=== PATIENT | male | born 1975 | race Caucasian/White ===

== ENCOUNTER 2016-05-28 17:21 | Emergency (ER) | payer BC, OTHER ==
[~2016-05-28] VITALS: Wt 78.0 kg
[~2016-05-28 17:21] MED LIST: MULT1TAB6 PO; [UNRECOGNIZED DRUG - OTHER]
[2016-05-28] MEDS ORDERED: LIDOCAINE 1% (MDV) 20 ML INJ SC ONE (18:30)
--- NOTE | 2016-05-28 19:03 | RADRPT ---
PROCEDURE: XR Chest. CLINICAL INDICATION: Chest pain.. TECHNIQUE: Single frontal chest x-ray. COMPARISON: None. FINDINGS: The lungs are clear of acute infiltrates, edema, effusions, or masses.. The cardiomediastinal silho uette is unremarkable. The osseous structures are intact. IMPRESSION: No acute cardiopulmonary disease. RPTAT: HJPL .Juwan Da Silva MD, MD Date Time Electronically viewed and signed by .Juwan Da Silva MD, MD on 05/28/2016 19:03 .L/
[2016-05-28 19:04] LABS: HEMATOCRIT 45.3 % (42.0-52.0); HEMOGLOBIN 15.2 g/dl (14.0-18.0); MEAN CORPUSCULAR HEMOGLOBIN 27.1 pg (29.0-33.0); MEAN CORPUSCULAR HGB CONC 33.6 g/dl (32.0-37.0); MEAN CORPUSCULAR VOLUME 80.9 fl (82.0-101.0); MEAN PLATELET VOLUME 10.9 fl (7.4-10.4); PLATELET COUNT 193 10^3/UL (140-440); RED CELL DISTRIBUTION WIDTH 13.5 % (11.5-14.5); UNCORRECTED WBC 22.6 10^3/ul (4.8-10.8); WHITE BLOOD COUNT 22.6 10^3/ul (4.8-10.8)
[2016-05-28 19:05] LABS: CONDITION 1; LH ANALYZER COMMENTS 1; SUSPECT 1
[2016-05-28 19:14] LABS: CHLORIDE 102 mmol/L (97-110); POTASSIUM 3.5 mmol/L (3.5-5.1); SODIUM 138 mmol/L (135-144)
[2016-05-28 19:16] LABS: INR 1.03; PROTIME 13.5 Sec (12.2-14.2); PT RATIO 1.1
[2016-05-28 19:17] LABS: ANION GAP 17 (8-16); BLOOD UREA NITROGEN 12 mg/dl (7-20); CARBON DIOXIDE 23 mmol/L (21-31); CREATININE 1.27 mg/dl (0.61-1.24); GLUCOSE 111 mg/dl (70-220)
[2016-05-28 19:18] LABS: CALCIUM 9.3 mg/dl (8.4-10.2)
--- NOTE | 2016-05-28 19:22 | ERD ---
ER Documentation Chief Complaint Date/Time DATE: 05/28/16 TIME: 19:19 Chief Complaint FLU SYMPTOMS BODY ACHE AND FEVER HPI This is a 41-year-old male presents emergency department for tactile fevers and chills, generalized body aches, decreased appetite, chest pain and backache 2 days. Patient also reports abscess to left buttock. Patient has not taking any medications at home for this. States he is having chest pain. Denies shortness of breath, difficulty breathing, chest pressure or palpitations. No nausea, vomiting or diarrhea. No wheezing. Tolerating p.o. fluids. ROS All systems reviewed and are negative except as per history of present illness. Medications Home Meds Active Scripts Cephalexin* (Keflex*) 500 Mg Capsule, 500 MG PO QID for 5 Days, CAP Prov:ARON ARIAS NP 05/28/16 Sulfamethoxazole-Trimethoprim* (Bactrim* DS) 800-160 Mg Tab, 1 TAB PO BID for 5 Days, TAB Prov:ARON ARIAS NP 05/28/16 Reported Medications [Psyllium Prn] No Conflict Check 12/14/14 Folic Acid/Mv,Fe,Other Min (Centrum Complete Multivit Tab) 1 Each Tablet, 1 EACH PO 08/03/14 Allergies Allergies: Coded Allergies: No Known Allergies (Verified Allergy, Unknown, 12/14/14) PMhx/Soc History of Surgery: Yes (HEMORROIDECTOMY JULY 2014) Anesthesia Reaction: No Hx Neurological Disorder: No Hx Respiratory Disorders: No Hx Cardiac Disorders: No Hx Psychiatric Problems: No Hx Miscellaneous Medical Probl: Yes Hx Alcohol Use: No Hx Substance Use: No Hx Tobacco Use: Yes Smoking Status: Current every day smoker Physical Exam Vitals Vital Signs Date Time Temp Pulse Resp B/P Pulse Ox O2 Delivery O2 Flow Rate FiO2 05/28/16 20:45 98.2 82 18 134/82 99 Room Air 05/28/16 17:22 98.0 122 18 143/92 99 Physical Exam Const: Alert, [id number] Head: Atraumatic Eyes: Normal Conjunctiva ENT: Normal External Ears, Nose and Mouth. TMs normal bilaterally. No erythema or exudate posterior pharynx. Neck: Full range of motion..~ No meningismus. No lymphadenopathy Resp: Clear to auscultation bilaterally. No wheezing, rhonchi or crackles. Cardio: Regular rate and rhythm, no murmurs Abd: Soft, non tender, non distended. Normal bowel sounds Skin: 2 cm abscess to left buttock. Surrounding erythema and warmth. Area is fluctuant. Back: No midline or flank tenderness Ext: No cyanosis, or edema Neur: Awake and alert Psych: Normal Mood and Affect Result Diagram: 05/28/16182105/28/16 182 Results 24 hrs Laboratory Tests Test 05/28/16 18:22 Activated Partial Thromboplast Time 28.2Sec Anion Gap 17 Band Neutrophils % 4.0% Blood Morphology Comment Blood Urea Nitrogen 12mg/dl Calcium Level 9.3mg/dl Carbon Dioxide Level 23mmol/L Chloride Level 102mmol/L Creatinine 1.27mg/dl Glucose Level 111mg/dl Hematocrit 45.3% Hemoglobin 15.2g/dl INR International Normalized Ratio 1.03 Lymphocytes # 3.410^3/ul Lymphocytes % 15.0% Mean Corpuscular Hemoglobin 27.1pg Mean Corpuscular Hemoglobin Concent 33.6g/dl Mean Corpuscular Volume 80.9fl Mean Platelet Volume 10.9fl Monocytes # 1.810^3/ul Monocytes % 8.0% Neutrophils # 16.510^3/ul Neutrophils % 73.0% Platelet Count 88855^3/UL Potassium Level 3.5mmol/L Prothrombin Time 13.5Sec Prothrombin Time Ratio 1.1 Red Blood Count 5.6010^6/ul Red Cell Distribution Width 13.5% Sodium Level 138mmol/L Troponin I < 0.012ng/ml White Blood Count 22.610^3/ul Current Medications Medications (Trade) Dose Ordered Sig/Ronal Route PRN Reason Start Time Stop Time Status Last Admin Dose Admin Lidocaine (Xylocaine 1% (Mdv) 20 ml) 20 ml ONCE ONCE SC 05/28/16 18:30 05/28/16 18:31 DC Procedures/MDM ED COURSE: The patient was stable throughout ED course. I kept the patient and/or family informed of laboratory and diagnostic imaging results throughout the ED course. Laboratory CBC White blood cell 22 otherwise negative BMP creatinine 1.27 PT 13.5 PTT 28.2 INR 1.03 Troponin less than 0.012 Imaging Chest x-ray Patient: RASHAD KIDD : 1975 Age: 41 Sex: M MR #: [id number] [facility] #: [id number] DOS: 05/28/16 1806 Ordering MD: ARON ARIAS NP Location: [facility] Room/Bed: PROCEDURE: XR Chest. CLINICAL INDICATION: Chest pain.. TECHNIQUE: Single frontal chest x-ray. COMPARISON: None. FINDINGS: The lungs are clear of acute infiltrates, edema, effusions, or masses.. The cardiomediastinal silhouette is unremarkable. The osseous structures are intact. IMPRESSION: No acute cardiopulmonary disease. EKG: As interpreted by Dr. Castellanos Rate/Rhythm: Sinus tachycardia with heart rate 104 bpm QRS, ST, T-waves: No changes consistent w/ acute ischemia Impression: No evidence of ischemia or arrhythmia Abscess Incision and Drainage with irrigation by me: Location: Left buttock Anesthesia: Local 1% Lidocaine Technique: Irrigated. Disrupted loculations w/ instrumentation Packin inches packing Complications: Neurovascularly intact post procedure 48 hour wound check. Scar minimization instructions given. MDM: 41-year-old male presents to the emergency department for tactile fevers, generalized body aches, decreased appetite and abscess. Labs were drawn as noted above. EKG sinus tachycardia. Chest x-ray reviewed by radiologist as no acute cardiopulmonary disease. Patient states he is feeling better since he first arrived. Verbal consent was obtained and incision was performed while in the ED. Patient 's skin symptoms have stabilized while they have been evaluated in the department and are appropriate for outpatient care and work up. Exam and w/u not consistent w/ sepsis, deep space infection, or foreign body. Patient instructed to return to ED in 2 days for wound check. Discussed patient 's lab results with Dr. Castellanos especially white blood cell count 22, and we feel that patient is appropriate for outpatient management with Bactrim and Keflex. Instructed patient to return sooner for any new or worsening symptoms. Return to ED for any high fever, chest pain, difficulty breathing, shortness breath, wheezing, vomiting, diarrhea, abdominal pain or any new or worsening symptoms. Patient verbalizes understanding. All questions answered at discharge. Departure Diagnosis: Primary Impression: Abscess Additional Impression: URI (upper respiratory infection) URI type: unspecified viral URI Qualified Code: J06.9 - Viral upper respiratory tract infection Condition: Stable ARON ARIAS NP May 28, 2016 19:22
[2016-05-28 19:26] LABS: PARTIAL THROMBOPLASTIN TIME 28.2 Sec (25.0-35.0)
[2016-05-28 19:30] LABS: TROPONIN-I < 0.012 ng/ml (0.00-0.12)
[2016-05-28 19:44] LABS: LYMPHOCYTES # 3.4 10^3/ul (0.8-2.9); MONOCYTE # 1.8 10^3/ul (0.3-0.9); NEUTROPHIL # 16.5 10^3/ul (1.6-7.5)
[2016-05-28] MEDS ORDERED: CEPH-443 PO (20:01)
[2016-05-28] MEDS ORDERED: BACTDS PO (20:01)
[2016-05-28 20:45] VITALS: BP 134/82; PULSE 82; RESP 18; TEMP 98.2
== END 2016-05-28 20:50 | disposition home or self-care (01) ==
LOC: FTE 17:21
DX: L02.31 Cutaneous abscess of buttock (principal); J06.9 Acute upper respiratory infection, unspecified; F17.210 Nicotine dependence, cigarettes, uncomplicated; R07.9 Chest pain, unspecified
CPT/HCPCS: 10061; 71010; 80048; 84484; 85025; 85610; 85730; 93005; 99285; Z7610

== ENCOUNTER 2016-05-30 11:09 | Emergency (ER) | END 2016-05-30 13:50 | disposition home or self-care (01) | DX: Z48.01 Encounter for change or removal of surgical wound dressing (principal); F17.210 Nicotine dependence, cigarettes, uncomplicated ==

== ENCOUNTER 2016-07-04 19:35 | Inpatient (IN) | payer BC ==
[~2016-07-04] VITALS: Ht 177.8 cm; Wt 96.3 kg
[~2016-07-04 19:35] MED LIST changes: +BACTDS PO; +CEPH-443 PO
[2016-07-04] MEDS ORDERED: SOD CHLORIDE 0.9% IV STA (21:07)
[2016-07-04 21:28] LABS: ADD SCAN DIFF NO
[2016-07-04] MEDS ORDERED: ACETAMINOPHEN 325 MG TAB PO ONE (21:30)
[2016-07-04] MEDS ORDERED: IBUPROFEN 800 MG TAB PO ONE (21:30)
[2016-07-04 21:37] LABS: BASOPHIL # 0.1 10^3/ul (0.0-0.1); BASOPHILS % 0.4 % (0.0-2.0); EOSINOPHILS % 0.1 % (0.0-7.0); HEMOGLOBIN 14.9 g/dl (14.0-18.0); LYMPHOCYTES # 3.3 10^3/ul (0.8-2.9); LYMPHOCYTES % 19.2 % (15.0-51.0); MEAN CORPUSCULAR HEMOGLOBIN 27.1 pg (29.0-33.0); MEAN CORPUSCULAR HGB CONC 33.1 g/dl (32.0-37.0); MEAN CORPUSCULAR VOLUME 81.8 fl (82.0-101.0); MEAN PLATELET VOLUME 11.5 fl (7.4-10.4); MONOCYTE # 1.5 10^3/ul (0.3-0.9); MONOCYTES % 8.6 % (0.0-11.0); NEUTROPHIL # 12.1 10^3/ul (1.6-7.5); NEUTROPHILS % 71.4 % (39.0-77.0); PLATELET COUNT 228 10^3/UL (140-415); RED CELL DISTRIBUTION WIDTH 13.4 % (11.5-14.5); WHITE BLOOD COUNT 16.9 10^3/ul (4.8-10.8)
[2016-07-04 21:47] LABS: ALBUMIN 4.3 g/dl (3.3-4.9)
[2016-07-04 21:50] LABS: BILIRUBIN,INDIRECT 0.9 mg/dl (0-1.1); BILIRUBIN,TOTAL 0.9 mg/dl (0.2-1.3); CREATININE 1.18 mg/dl (0.61-1.24); TOTAL PROTEIN 8.6 g/dl (6.1-8.1)
[2016-07-04 21:51] LABS: CALCIUM 9.3 mg/dl (8.4-10.2)
[2016-07-04] MEDS ORDERED: IOHEXOL 300MG/ML 150 ML BTL ONE (22:41)
[2016-07-04] MEDS ORDERED: SOD CHLORIDE 0.9% 100 ML ONE (22:41)
--- NOTE | 2016-07-04 23:18 | RADRPT ---
PROCEDURE: CT abdomen and pelvis with contrast. CLINICAL INDICATION: Left pelvic pain consistent with abscess extending into the rectum TECHNIQUE: CT scan of the abdomen and pelvis with contrast was performed. Coronal and sagittal im ages were also reformatted. 90 cc Omnipaque-300 intravenous contrast was administered without compl ication. Total exam CTDIvol = 15.41 mGy and DLP = 931.12 mGy-cm. COMPARISON: None available. FINDINGS: Visualized lower thorax: The lung bases are clear. There is no evidence for pleural effusion. Liver, gallbladder, pancreas and spleen: Low attenuation of the liver is compatible with fatty depo sition with normal contour and size. There is no evidence for liver mass or ductal dilatation. The gallbladder is unremarkable. No common bile duct dilatation is evident. The pancreas is normal. The spleen is normal, not enlarged. Adrenal glands and genitourinary system: The adrenal glands are normal bilaterally. The kidneys ar e normal in size, contour and attenuation with no evidence for masses, calculi or hydronephrosis. Sy mmetric enhancement of the kidneys is present without pyelonephritis The ureters are unremarkable. The urinary bladder shows no abnormality. The prostate gland is normal in size. The scrotum shows no abnormality. Gastrointestinal system: The stomach, small bowel and large intestine are normal in caliber. There is no evidence of obstruction, ileus or inflammation. The appendix and surrounding fat are normal. A normal amount of fecal debris is present within the colon and there is no wall thickening to sugg est colitis. Peritoneum, retroperitoneum, vessels and lymph nodes: The abdominal aorta is normal in caliber. Th ere is mild right common iliac artery atherosclerotic calcification. Inferior vena cava is normal i n caliber. There is no evidence for adenopathy. The peritoneal cavity is normal with no evidence f or ascites. Osseous structures and musculoskeletal system: There is no evidence for acute osseous abnormality o r muscular pathology. Corresponding to the provided history in the left ischiorectal fossa fat the is an ovoid centrally hypodense and peripherally enhancing collection with a some punctate central f oci of gas, the finding consistent with a perianal abscess estimated at 4.6 x 4.4 x 2.9 cm in AP, cr anial caudal and transverse dimensions respectively (series 3 image 180). The abscess extends to th e skin surface along the left medial gluteal crease with overlying skin thickening and diffuse infla mmatory stranding of the left medial gluteal fat consistent with cellulitis. There is no evidence o f extension above the levator ani muscles into the perirectal region. RPTAT:HJJR IMPRESSION: 1. Acute inflammatory collection/abscess within the left ischiorectal fossa adjacent to the anus me asures approximately 4.6 x 4.4 x 2.9 cm with surrounding cellulitis in the left gluteal fat and like ly drainage to the skin surface but no extension cephalad to the levator ani muscles into the pelvis and perirectal regions. 2. Hepatic steatosis. 3. Mild atherosclerotic calcification of the right common iliac artery. Physician Cecille Date Time Electronically viewed and signed by Paxton Mullins Physician on 07/04/2016 23:18 JR/
[2016-07-05] VITALS (17 sets, daily range): BP systolic 103–142; BP diastolic 55–81; PULSE 77–125; RESP 16–41; TEMP 99.7; Ht 177.8 cm; Wt 96.3 kg
--- NOTE | 2016-07-05 02:02 | ERA ---
ER Documentation Chief Complaint Date/Time DATE: 07/05/16 TIME: 01:54 Chief Complaint LEFT BUTTOCK WITH FEVER AND PAIN HPI 41 year old with a past medical history of left buttocks abscess presents to the ED complaining of of an abscess noted on the left side of his buttocks that reoccurred 2 days ago. States that he started to feel body aches, a slight frontal headache and feels like the abscess pain is radiating down his left leg. States he started to have chills and a fever earlier today. Denies taking any medications. Denies any cough, rhinorrhea, chest pain, shortness of breath, abdominal pain, nausea, vomiting, diarrhea, blood in stools, melena. Denies any flank pain, dysuria, urgency, frequency, hematuria. States that he has had prior I&D of his abscess, hemorrhoidectomy x 2. ROS All systems reviewed and are negative except as per history of present illness. Medications Home Meds Active Scripts Cephalexin* (Keflex*) 500 Mg Capsule, 500 MG PO QID for 5 Days, CAP Prov:ARON ARIAS NP 05/28/16 Sulfamethoxazole-Trimethoprim* (Bactrim* DS) 800-160 Mg Tab, 1 TAB PO BID for 5 Days, TAB Prov:ARON ARIAS NP 05/28/16 Reported Medications [Psyllium Prn] No Conflict Check 12/14/14 Folic Acid/Mv,Fe,Other Min (Centrum Complete Multivit Tab) 1 Each Tablet, 1 EACH PO 08/03/14 Allergies Allergies: Coded Allergies: No Known Allergies (Verified Allergy, Unknown, 05/30/16) PMhx/Soc History of Surgery: Yes (HEMORROIDECTOMY JULY 2014) Anesthesia Reaction: No Hx Neurological Disorder: No Hx Respiratory Disorders: No Hx Cardiac Disorders: No Hx Psychiatric Problems: No Hx Miscellaneous Medical Probl: Yes Hx Alcohol Use: Yes (SOCIALLY) Hx Substance Use: No Hx Tobacco Use: Yes Smoking Status: Unknown if ever smoked Physical Exam Vitals Vital Signs Date Time Temp Pulse Resp B/P Pulse Ox O2 Delivery O2 Flow Rate FiO2 07/05/16 02:20 99.8 79 18 110/77 97 Room Air 07/04/16 19:50 101.0 129 18 141/97 98 Physical Exam Const: [id number], well-nourished. In no acute distress. Head: Atraumatic, normocephalic Eyes: Normal Conjunctiva without injection. No purulent discharge. ENT: Normal external ear, nose. Moist oropharynx without tonsillar exudates. Non -erythematous pharynx. Uvula midline. No drooling. No trismus. Neck: No cervical midline tenderness. Full range of motion. No meningismus. No cervical lymphadenopathy. No JVD. Resp: Clear to auscultation bilaterally. No wheezing, rhonchi, rales, or crackles. No accessory muscle use. No retractions. Cardio: Regular rate and rhythm. No murmurs, rubs or gallops. Abd: Soft, nontender, non distended. Normal bowel sounds. No palpable masses. No rebound tenderness. No guarding. Negative McBurney's point. Negative psoas sign. Negative obturator sign. 3 cm fluctuant abscess noted of left buttocks with surrounding erythema and induration noted of left buttocks with erythema tracking to the anus. Slight tenderness to palpation of the anal region. Skin: No petechiae or rashes Back: No midline tenderness. No CVA tenderness. Ext: No cyanosis, or edema. Neur: Awake and alert. Normal gait. Normal coordination. Psych: Normal Mood and Affect Result Diagram: 07/08/1644907/08/160 Results 24 hrs Laboratory Tests Test 07/04/16 21:20 Alanine Aminotransferase (ALT/SGPT) 41IU/L Albumin 4.3g/dl Albumin/Globulin Ratio 1.00 Alkaline Phosphatase 75IU/L Anion Gap 18 Aspartate Amino Transf (AST/SGOT) 24IU/L Basophils # 0.110^3/ul Basophils % 0.4% Blood Urea Nitrogen 11mg/dl Calcium Level 9.3mg/dl Carbon Dioxide Level 28mmol/L Chloride Level 99mmol/L Creatinine 1.18mg/dl Direct Bilirubin 0.00mg/dl Eosinophils # 0.010^3/ul Eosinophils % 0.1% Globulin 4.30g/dl Glucose Level 115mg/dl Hematocrit 45.0% Hemoglobin 14.9g/dl Indirect Bilirubin 0.9mg/dl Lipase 50U/L Lymphocytes # 3.310^3/ul Lymphocytes % 19.2% Mean Corpuscular Hemoglobin 27.1pg Mean Corpuscular Hemoglobin Concent 33.1g/dl Mean Corpuscular Volume 81.8fl Mean Platelet Volume 11.5fl Monocytes # 1.510^3/ul Monocytes % 8.6% Neutrophils # 12.110^3/ul Neutrophils % 71.4% Nucleated Red Blood Cells # 0.010^3/ul Nucleated Red Blood Cells % 0.0/100WBC Platelet Count 13086^3/UL Potassium Level 4.0mmol/L Red Blood Count 5.5010^6/ul Red Cell Distribution Width 13.4% Sodium Level 141mmol/L Total Bilirubin 0.9mg/dl Total Protein 8.6g/dl White Blood Count 16.910^3/ul Current Medications Medications (Trade) Dose Ordered Sig/Ronal Route PRN Reason Start Time Stop Time Status Last Admin Dose Admin Sodium Chloride (NS) 2,980 ml @ 2,980 mls/hr BOLUS X1 STAT IV 07/04/16 21:07 07/05/16 05:11 DC 07/04/16 21:15 Ibuprofen (Motrin) 800 mg ONCE ONCE PO 07/04/16 21:30 07/04/16 21:31 DC 07/04/16 21:14 Acetaminophen (Tylenol Tab) 650 mg ONCE ONCE PO 07/04/16 21:30 07/04/16 21:31 DC 07/04/16 21:14 IV Flush 10 ml 10 ml STK-MED ONCE .ROUTE 07/04/16 22:41 07/04/16 22:42 DC 07/04/16 22:58 Sodium Chloride (NS) 100 ml @ ud STK-MED ONCE .ROUTE 07/04/16 22:41 07/04/16 22:42 DC 07/04/16 22:58 Iohexol (Omnipaque 300mg/ ml) 150 ml STK-MED ONCE .ROUTE 07/04/16 22:41 07/04/16 22:42 DC 07/04/16 22:58 Procedures/MDM This is a 41-year-old male with a past medical history of left buttocks abscess presents the ED complaining of fever, body aches, recurrent left buttocks abscess that occurred 2 days ago. Patient is febrile at 101.0 and tachycardic at 129. Patient was further worked up with CBC, CMP, CT of the abdomen and pelvis with contrast. Patient's pain and symptoms have improved after treatment with ibuprofen and Tylenol which also downtrend patient's temperature. PROCEDURE: CT abdomen and pelvis with contrast. CLINICAL INDICATION: Left pelvic pain consistent with abscess extending into the rectum TECHNIQUE: CT scan of the abdomen and pelvis with contrast was performed. Coronal and sagittal images were also reformatted. 90 cc Omnipaque-300 intravenous contrast was administered without complication. Total exam CTDIvol = 15.41 mGy and DLP = 931.12 mGy-cm. COMPARISON: None available. FINDINGS: Visualized lower thorax: The lung bases are clear. There is no evidence for pleural effusion. Liver, gallbladder, pancreas and spleen: Low attenuation of the liver is compatible with fatty deposition with normal contour and size. There is no evidence for liver mass or ductal dilatation. The gallbladder is unremarkable. No common bile duct dilatation is evident. The pancreas is normal. The spleen is normal, not enlarged. Adrenal glands and genitourinary system: The adrenal glands are normal bilaterally. The kidneys are normal in size, contour and attenuation with no evidence for masses, calculi or hydronephrosis. Symmetric enhancement of the kidneys is present without pyelonephritis The ureters are unremarkable. The urinary bladder shows no abnormality. The prostate gland is normal in size. The scrotum shows no abnormality. Gastrointestinal system: The stomach, small bowel and large intestine are normal in caliber. There is no evidence of obstruction, ileus or inflammation. The appendix and surrounding fat are normal. A normal amount of fecal debris is present within the colon and there is no wall thickening to suggest colitis. Peritoneum, retroperitoneum, vessels and lymph nodes: The abdominal aorta is normal in caliber. There is mild right common iliac artery atherosclerotic calcification. Inferior vena cava is normal in caliber. There is no evidence for adenopathy. The peritoneal cavity is normal with no evidence for ascites. Osseous structures and musculoskeletal system: There is no evidence for acute osseous abnormality or muscular pathology. Corresponding to the provided history in the left ischiorectal fossa fat the is an ovoid centrally hypodense and peripherally enhancing collection with a some punctate central foci of gas, the finding consistent with a perianal abscess estimated at 4.6 x 4.4 x 2.9 cm in AP, cranial caudal and transverse dimensions respectively (series 3 image 180 ). The abscess extends to the skin surface along the left medial gluteal crease with overlying skin thickening and diffuse inflammatory stranding of the left medial gluteal fat consistent with cellulitis. There is no evidence of extension above the levator ani muscles into the perirectal region. RPTAT:HJJR IMPRESSION: 1. Acute inflammatory collection/abscess within the left ischiorectal fossa adjacent to the anus measures approximately 4.6 x 4.4 x 2.9 cm with surrounding cellulitis in the left gluteal fat and likely drainage to the skin surface but no extension cephalad to the levator ani muscles into the pelvis and perirectal regions. 2. Hepatic steatosis. 3. Mild atherosclerotic calcification of the right common iliac artery. CBC: Leukocytosis of 16.9 likely secondary to perirectal abscess noted. No e/o anemia. CMP: No e/o severe acidosis, alkalosis, renal failure, diabetic ketoacidosis, liver disease Patient has a left acute inflammatory abscess that could likely be tracking to deeper space infection likely a perirectal abscess. This case was discussed with my supervising physician, Dr. Parks who agreed to admit patient at this time for a surgical consultation. Patient will now be transferred to the ED 1 for further evaluation and treatment by Dr. Parks. Departure Diagnosis: Primary Impression: Left buttock abscess Condition: Stable ELBA KC PA-C Jul 05, 2016 02:02 ELBA KC PA-C Jul 05, 2016 02:02
[2016-07-05] MEDS ORDERED: morphine 2 MG INJ IV PRN (05:00)
[2016-07-05] MEDS ORDERED: ONDANSETRON 4 MG INJ IV PRN ×3 (05:00→20:00)
[2016-07-05] MEDS ORDERED: NACL 0.9% 3 ML SYG IV SCH (05:00)
[2016-07-05] MEDS ORDERED: PROPOFOL 200 MG INJ ONE (07:00)
[2016-07-05] MEDS ORDERED: HYDROCODONE/APAP (5/325) TAB PO PRN (09:30)
[2016-07-05] MEDS ORDERED: ACETAMINOPHEN 325 MG TAB PO PRN (09:30)
[2016-07-05] MEDS ORDERED: VANCOMYCIN IV PER PHARMACY XX SCH (09:30)
[2016-07-05] MEDS ORDERED: VANCOMYCIN 2 GM in SOD CHLORIDE 0.9% 500 ML IVPB SCH (12:00)
[2016-07-05 12:24] LABS: INR 1.08; PT RATIO 1.1
--- NOTE | 2016-07-05 13:04 | CONS ---
Date/Time of Note Date/Time of Note DATE: 07/05/16 TIME: 13:00 Assessment/Plan Assessment/Plan Chief Complaint/Hosp Course 41-year-old male with perirectal abscess * Will need operative incision and drainage * Discussed with patient in detail including all risks and benefits of the procedure. He understands and agrees to proceed. * Will schedule for surgery Problems: Consultation Date/Type/Reason Admit Date/Time Jul 05, 2016 at 03:32 Date of Consultation: Jul 05, 2016 Type of Consultation: GENERAL SURGERY Reason for Consultation Perirectal abscess Hx of Present Illness Patient is a 41-year-old male with a history of prior hemorrhoidectomy 2, anal dilation, proximal mucosal flap, prior I&D of perirectal abscess who presented to the ER complaining of maki-rectal pain and associated fever. CT scan was done which showed presence of perirectal abscess. He has since been admitted and started on broad-spectrum intravenous antibiotics. He continues to be febrile. A 14 point review of systems was conducted and was negative except for that which is mentioned in history of present illness Past Medical History As in history of present illness Past Surgical History As in history of present illness Social History Smoking Status: Current every day smoker Exam/Review of Systems Vital Signs Vitals Vital Signs Date Time Temp Pulse Resp B/P Pulse Ox O2 Delivery O2 Flow Rate FiO2 07/05/16 12:15 99.7 07/05/16 11:00 125 18 106/60 95 Room Air Intake and Output 07/04/16 07/04/16 07/05/16 15:00 23:00 07:00 Intake Total 2980 ml Balance 2980 ml Exam GENERAL: Awake, alert, oriented 3. No acute distress. SKIN: No jaundice. HEENT: PERRLA, EOMI, No Scleral Icterus NECK: Supple without JVD CARDIOVASCULAR: S1S2, regular rate and rhythm. No murmurs appreciated. RESPIRATORY: Clear to auscultation bilaterally. ABDOMEN: Soft, bowel sounds present, nondistended, nontender to palpation. BUTTOCKS: Large perirectal abscess on the left extending to the ischiorectal space and involving the left medial gluteus mercedes muscle. There is fluctuance and extensive cellulitis over the area. EXTREMITIES: Free range of motion 4. No cyanosis, edema, or clubbing. NEUROLOGIC: Cranial nerves II-XII are intact. Sensation is intact grossly. Results Result Diagram: 07/04/16211907/04/162119 Results 24 hrs Laboratory Tests Test 07/04/16 21:20 07/05/16 11:26 Alanine Aminotransferase (ALT/SGPT) 41 Albumin 4.3 Albumin/Globulin Ratio 1.00 Alkaline Phosphatase 75 Anion Gap 18 H Aspartate Amino Transf (AST/SGOT) 24 Basophils # 0.1 Basophils % 0.4 Blood Urea Nitrogen 11 Calcium Level 9.3 Carbon Dioxide Level 28 Chloride Level 99 Creatinine 1.18 Direct Bilirubin 0.00 Eosinophils # 0.0 Eosinophils % 0.1 Globulin 4.30 H Glucose Level 115 Hematocrit 45.0 Hemoglobin 14.9 Indirect Bilirubin 0.9 Lipase 50 Lymphocytes # 3.3 H Lymphocytes % 19.2 Mean Corpuscular Hemoglobin 27.1 L Mean Corpuscular Hemoglobin Concent 33.1 Mean Corpuscular Volume 81.8 L Mean Platelet Volume 11.5 H Monocytes # 1.5 H Monocytes % 8.6 Neutrophils # 12.1 H Neutrophils % 71.4 Nucleated Red Blood Cells # 0.0 Nucleated Red Blood Cells % 0.0 Platelet Count 228 Potassium Level 4.0 Red Blood Count 5.50 Red Cell Distribution Width 13.4 Sodium Level 141 Total Bilirubin 0.9 Total Protein 8.6 H White Blood Count 16.9 #H INR International Normalized Ratio 1.08 Prothrombin Time 14.0 Prothrombin Time Ratio 1.1 Medications Medications Current Medications Morphine Sulfate (morphine) 2 mg Q4H PRN IV PAIN; Start 07/05/16 at 05:00 Ondansetron HCl (Zofran Inj) 4 mg Q6H PRN IV NAUSEA AND/OR VOMITING; Start 07/05 at 05:00 Acetaminophen/ Hydrocodone Bitart ([place] (5/325)) 1 tab Q6H PRN PO Mild- Moderate Pain; Start 07/05/16 at 09:30 Acetaminophen/ Hydrocodone Bitart ([place] (5/325)) 2 tab Q6H PRN PO Moderate- Severe Pain Last administered on 07/05/16t 09:38; Admin Dose 2 TAB; Start at 09:30 Acetaminophen 650 mg 650 mg Q6H PRN PO PAIN AND OR ELEVATED TEMP; Start at 09:30 Vancomycin HCl 2 gm/Sodium Chloride 500 ml @ 125 mls/hr ONCE IVPB Last administered on 07/05/16t 12:47; Admin Dose 125 MLS/HR; Start 07/05/16 at 12:00; Stop 07/05/16 at 15:59 Vancomycin HCl 1.5 gm/Sodium Chloride 250 ml @ 83.333 mls/ hr Q12H IVPB ; Start 07/06/16 at 00:00 Piperacillin Sod/ Tazobactam Sod (Zosyn 3.375gm/ 100 ml (Pmx)) 100 ml @ 200 mls /hr Q8 IVPB ; Start 07/05/16 at 14:00 Procedures Procedures PROCEDURE: CT abdomen and pelvis with contrast. CLINICAL INDICATION: Left pelvic pain consistent with abscess extending into the rectum TECHNIQUE: CT scan of the abdomen and pelvis with contrast was performed. Coronal and sagittal images were also reformatted. 90 cc Omnipaque-300 intravenous contrast was administered without complication. Total exam CTDIvol = 15.41 mGy and DLP = 931.12 mGy-cm. COMPARISON: None available. FINDINGS: Visualized lower thorax: The lung bases are clear. There is no evidence for pleural effusion. Liver, gallbladder, pancreas and spleen: Low attenuation of the liver is compatible with fatty deposition with normal contour and size. There is no evidence for liver mass or ductal dilatation. The gallbladder is unremarkable. No common bile duct dilatation is evident. The pancreas is normal. The spleen is normal, not enlarged. Adrenal glands and genitourinary system: The adrenal glands are normal bilaterally. The kidneys are normal in size, contour and attenuation with no evidence for masses, calculi or hydronephrosis. Symmetric enhancement of the kidneys is present without pyelonephritis The ureters are unremarkable. The urinary bladder shows no abnormality. The prostate gland is normal in size. The scrotum shows no abnormality. Gastrointestinal system: The stomach, small bowel and large intestine are normal in caliber. There is no evidence of obstruction, ileus or inflammation. The appendix and surrounding fat are normal. A normal amount of fecal debris is present within the colon and there is no wall thickening to suggest colitis. Peritoneum, retroperitoneum, vessels and lymph nodes: The abdominal aorta is normal in caliber. There is mild right common iliac artery atherosclerotic calcification. Inferior vena cava is normal in caliber. There is no evidence for adenopathy. The peritoneal cavity is normal with no evidence for ascites. Osseous structures and musculoskeletal system: There is no evidence for acute osseous abnormality or muscular pathology. Corresponding to the provided history in the left ischiorectal fossa fat the is an ovoid centrally hypodense and peripherally enhancing collection with a some punctate central foci of gas, the finding consistent with a perianal abscess estimated at 4.6 x 4.4 x 2.9 cm in AP, cranial caudal and transverse dimensions respectively (series 3 image 180 ). The abscess extends to the skin surface along the left medial gluteal crease with overlying skin thickening and diffuse inflammatory stranding of the left medial gluteal fat consistent with cellulitis. There is no evidence of extension above the levator ani muscles into the perirectal region. RPTAT:HJJR IMPRESSION: 1. Acute inflammatory collection/abscess within the left ischiorectal fossa adjacent to the anus measures approximately 4.6 x 4.4 x 2.9 cm with surrounding cellulitis in the left gluteal fat and likely drainage to the skin surface but no extension cephalad to the levator ani muscles into the pelvis and perirectal regions. 2. Hepatic steatosis. 3. Mild atherosclerotic calcification of the right common iliac artery. Physician Cecille Date Time Electronically viewed and signed by Physician Cecille on 07/04/2016 23:18 JR/ CC: ELBA KC PA-C, MICHAEL A. MD Jul 05, 2016 13:04
[2016-07-05] MEDS: SOD CHLORIDE 0.45% 1,000 ML IV SCH ×2 (13:30→17:07)
[2016-07-05] MEDS: ENOXAPARIN 30 MG/0.3 ML SYG SC SCH (13:30)
[2016-07-05] MEDS ORDERED: PIPER-TAZO 3.375 GM IV (PMX) 100 ML IVPB SCH (14:00)
--- NOTE | 2016-07-05 14:21 | HP ---
DATE OF ADMISSION: 07/05/2016 CHIEF COMPLAINT: Left buttock abscess, fever and pain. HISTORY OF PRESENT ILLNESS: The patient is a 41-year-old gentleman with prior history of hemorrhoid ectomy x2 more than a year ago. The patient developed a perirectal abscess and was seen in the ER a month ago. The patient had an I and D done in the ER and was discharged home on oral antibiotics. Patient stated that he finished treatment with antibiotics; however, continued to have perirectal s welling and severe pain. Patient had fevers with chills and presented to emergency room. The patie nt denies any chest pain, denies shortness of breath, denies any nausea, vomiting, denies any bilate ral lower extremity swelling. The patient underwent a CT of the abdomen and pelvis with contrast in the emergency room which revealed: 1. Acute inflammatory collection/abscess within the left ischiorectal foci adjacent to the anus jennifer suring 4.6, 4.4 and 2.9 cm with surrounding cellulitis and left gluteal fat and likely drainage to t he skin surface, but no extension to the levator ani muscles into the pelvis and perirectal region. 2. Hepatic steatosis. 3. Mild atherosclerosis calcification of the right common iliac artery. The patient also had white blood cells elevated to 16.9 and fever to 103.2. After blood cultures dr alvarez the patient is given vancomycin and Zosyn. Patient is admitted for further evaluation and manag ement. PAST MEDICAL HISTORY: Positive for hypertension and hemorrhoids. PAST SURGICAL HISTORY: Per HPI. SOCIAL HISTORY: Patient lives at home. Patient smokes about 1 to 2 cigarettes per day, smoked for more than 20 years. Patient denies any alcohol use, denies any illicit drug use. FAMILY HISTORY: Noncontributory. ALLERGIES: NO KNOWN ALLERGIES. HOME MEDICATIONS: Multivitamins. REVIEW OF SYSTEMS: A 12-point review of systems is negative unless what mentioned in the HPI. PHYSICAL ASSESSMENT: GENERAL: Well-developed, well-nourished gentleman, awake, alert. VITAL SIGNS: Temperature is 99.7, pulse is 125, blood pressure 106/60, respiratory rate 18, oxygen saturation 95% on room air. HEENT: Head is atraumatic, normocephalic. Pupils equal, round, reactive to light and accommodation . Oral mucosa is pink and moist. NECK: Supple, no cervical lymphadenopathy, no thyromegaly. CHEST: Lungs clear bilaterally. There is no rhonchi, wheezes, rales noted. CARDIOVASCULAR: Normal S1, S2. No murmurs, gallops, clicks, rubs noted. The patient is tachycardi c. ABDOMEN: Soft, nondistended, nontender, round. There is no guarding, no rebound tenderness. Patie nt has a fluctuant abscess with surrounding erythema and induration in the left buttocks. SKIN: There is no rash, petechiae noted. NEUROLOGIC: Patient is awake, alert and oriented x4. No focal deficits noted. Motor strength 5/5 in all extremities. EXTREMITIES: There is no edema, clubbing, cyanosis. Pulses equal bilaterally 2+. LABORATORY DATA: On admission, CBC: White blood cells 16.9, hemoglobin 14.9, hematocrit 45.0, plat elets 228. Chemistry: Sodium is 141, potassium 4.0, chloride 99, carbon dioxide 28, anion gap 18, BUN is 11, creatinine 1.8, glucose 115, calcium is 9.3. Lipase is 50. PT is 14.0. PT ratio 1.1. INR is 1.08. ASSESSMENT AND PLAN: 1. Perirectal abscess with surrounding cellulitis. 2. Possible sepsis secondary to abscess with leukocytosis, tachycardia and fevers. Continue patien t on vancomycin and Zosyn. We will obtain blood cultures. Patient will be followed by Dr. Debbie mtz infectious disease consultation. Patient is followed by Dr. Willett in general surgery consultation scheduled for I and D. Continue IV fluids. Continue morphine for pain and Zofran p.r.n. for nause a. Start Lovenox for deep venous thrombosis prophylaxis and Pepcid for peptic ulcer disease prophyl axis. Further recommendations based on clinical course. Plan of care discussed with Dr. Sawyer. Dictated By: FERNY THOMPSON COMPLETION MANAGER for ARELIS SAWYER MD, SR/LAUREL Conf#: [id number] DID#: [id number]
[2016-07-05] MEDS: PIPER-TAZO 3.375 GM IV (PMX) 100 ML IVPB SCH (17:07)
[2016-07-05] MEDS ORDERED: ACETAMINOPHEN 1000MG/100ML IV 100 ML IVPB STA (17:19)
[2016-07-05] MEDS ORDERED: BUPIVACAINE 0.25%/EPI (SDV) 30 ML INJ ONE (18:51)
[2016-07-05] MEDS ORDERED: LIDOCAINE 1%/EPI 30 ML INJ ONE (19:15)
[2016-07-05] MEDS ORDERED: PROPOFOL 20 ML ONE (19:25)
[2016-07-05] MEDS ORDERED: SUCCINYLCHOLINE CHLORIDE 100 MG/5 ML SYG IV ONE (19:25)
[2016-07-05] MEDS ORDERED: PROPOFOL 200 ML ONE (19:25)
[2016-07-05] MEDS ORDERED: KETOROLAC 30 MG INJ IV ONE (19:30)
[2016-07-05] MEDS ORDERED: hydrALAzine 20 MG INJ IV PRN (19:30)
[2016-07-05] MEDS ORDERED: FENTAnyl 50 MCG/ML VIAL IV PRN (19:30)
[2016-07-05] MEDS ORDERED: MIDAZOLAM 1 MG/ML 2 ML INJ IV PRN (19:30)
[2016-07-05] MEDS ORDERED: MEPERIDINE 25 MG INJ IV PRN (19:30)
[2016-07-05] MEDS ORDERED: morphine (1 MG/ML) 10ML SYRINGE IV PRN ×3 (19:30)
[2016-07-05] MEDS ORDERED: EPHEDrine SULFATE 50 MG/5 ML SYG IV PRN (19:30)
--- NOTE | 2016-07-05 20:04 | OPR ---
Date/Time of Note Date/Time of Note DATE: 07/05/16 TIME: 20:00 Operative Report Procedure Date: Jul 05, 2016 Preoperative Diagnosis Perirectal abscess Postoperative Diagnosis Perirectal abscess Operation Performed Incision and drainage of perirectal abscess Surgeon: DELFINA MENDOZA MD Anesthesia: general Anesthesiologist: MATTHEW OTT M.D. Estimated Blood Loss: minimal Specimens Wound culture and sensitivity Complications: None Pt Condition Post Procedure: stable Disposition: PACU Indications Patient is a 41-year-old gentleman who presented with a perirectal abscess accompanied with pain and fever. He was admitted, started on broad-spectrum intravenous antibiotics and pain control. He was scheduled for urgent incision and drainage. Or some minutes of procedure including but not limited to wound infection, excessive bleeding, prolonged wound healing course, possibility of fistula, etc. were all explained to the patient in full detail. He fully understood and wished to proceed with the procedure. Informed consent was obtained. Operative Findings Perirectal abscess with a lot of pus Procedure Description The patient was brought to the operating room and placed supine on the operating table. Bilateral sequential compression devices were placed on both lower 70s. The patient had been maintained on broad-spectrum intravenous antibiotics while an inpatient on the floor. After the induction of smooth general endotracheal anesthesia the patient was positioned in the right lateral decubitus position with the left side up. The buttocks was then prepped and draped in standard surgical fashion. After performance of the surgical timeout a cruciate incision was made over the most fluctuant part of the abscess using a 15 blade scalpel. Immediately copious amounts of pus started draining. Cultures were taken and sent for microbiological analysis. The pus was all suctioned out. Loculations were broken up using a Larkin clamp. The abscess cavity was then irrigated with copious amounts of warm antibiotic containing irrigation. Hemostasis was inspected for and noted to be adequate. The wound was then packed with 1 inch iodoform packing. Incision was cleaned and sterile dressings were applied. The patient was awoken from anesthesia and transported to the recovery room in stable condition. All counts were correct at the end of the case 2. DELFINA MENODZA MD Jul 05, 2016 20:03
[2016-07-05] MEDS ORDERED: POLYMYXIN/BACITRACIN 1L IRRIG IRR ONE (20:14)
[2016-07-06] MEDS: PIPER-TAZO 3.375 GM IV (PMX) 100 ML IVPB SCH ×3 (00:42→16:43)
[2016-07-06] MEDS: VANCOMYCIN 1.5 GM in SOD CHLORIDE 0.9% 250 ML IVPB SCH ×2 (01:44→11:54)
[2016-07-06] MEDS: PANTOPRAZOLE (EC) 40 MG TAB PO SCH (05:30)
[2016-07-06] MEDS: SOD CHLORIDE 0.45% 1,000 ML IV SCH ×3 (05:30→23:46)
[2016-07-06 06:13] LABS: ADD SCAN DIFF NO
[2016-07-06 06:31] LABS: POTASSIUM 3.7 mmol/L (3.5-5.1)
[2016-07-06 06:33] LABS: CREATININE 0.97 mg/dl (0.61-1.24)
[2016-07-06 06:34] LABS: CALCIUM 8.2 mg/dl (8.4-10.2)
[2016-07-06 06:36] LABS: ABNORMAL IP MESSAGE 1; BASOPHILS % 0.2 % (0.0-2.0); EOSINOPHILS % 0.1 % (0.0-7.0); HEMATOCRIT 39.1 % (42.0-52.0); HEMOGLOBIN 12.7 g/dl (14.0-18.0); LYMPHOCYTES # 2.5 10^3/ul (0.8-2.9); LYMPHOCYTES % 13.3 % (15.0-51.0); MEAN CORPUSCULAR HGB CONC 32.5 g/dl (32.0-37.0); MONOCYTE # 1.6 10^3/ul (0.3-0.9); MONOCYTES % 8.6 % (0.0-11.0); NEUTROPHIL # 14.4 10^3/ul (1.6-7.5); NEUTROPHILS % 77.3 % (39.0-77.0); PLATELET COUNT 191 10^3/UL (140-415); RED BLOOD COUNT 4.71 10^6/ul (4.70-6.10); RED CELL DISTRIBUTION WIDTH 13.8 % (11.5-14.5); WHITE BLOOD COUNT 18.6 10^3/ul (4.8-10.8)
[2016-07-06 07:23] VITALS: BP 115/70; RESP 16
[2016-07-06] MEDS: ENOXAPARIN 30 MG/0.3 ML SYG SC SCH (09:08)
--- NOTE | 2016-07-06 09:49 | PN ---
Date/Time of Note Date/Time of Note DATE: 07/06/16 TIME: 09:48 Assessment/Plan Lines/Catheters IV C[facility]ter Type (from [facility]): Peripheral IV Assessment/Plan Assessment/Plan 41-year-old male with perirectal abscess status post incision and drainage postop day #1 * Packing removed * Continue local wound care * Continue broad-spectrum intravenous antibiotics * Follow-up cultures * Still with leukocytosis. Would keep for at least another 24 hours of IV antibiotics Subjective 24 Hr Interval Summary Status post I&D. Feels better. Afebrile Exam/Review of Systems Vital Signs Vitals Vital Signs Date Time Temp Pulse Resp B/P Pulse Ox O2 Delivery O2 Flow Rate FiO2 07/06/16 07:23 97.9 91 16 115/70 97 07/05/16 22:00 Room Air 07/05/16 20:16 6.0 Intake and Output 07/05/16 07/05/16 07/06/16 14:59 22:59 06:59 Intake Total 1500 ml 1420 ml Output Total 30 ml Balance 1470 ml 1420 ml Exam Free Text/Dictation WOUND: Clean, dry. Cellulitis slightly improved Results Result Diagram: 07/06/16 0530 07/06/16 0530 DELFINA MENDOZA MD Jul 06, 2016 09:49
--- NOTE | 2016-07-06 14:09 | PN ---
Date/Time of Note Date/Time of Note DATE: 07/06/16 TIME: 14:07 Assessment/Plan VTE Prophylaxis VTE Prophylaxis Intervention: LMWH Lines/Catheters IV Catheter Type (from Nrs): Peripheral IV Assessment/Plan Assessment/Plan 1. Perirectal abscess with surrounding cellulitis. 2. Possible sepsis secondary to abscess with leukocytosis, tachycardia and fevers. Continue patient on vancomycin and Zosyn. We will obtain blood cultures. Patient will be followed by Dr. Lewis in infectious disease consultation. Patient is followed by Dr. Willett in general surgery consultation scheduled for I and D. Continue IV fluids. Continue morphine for pain and Zofran p.r.n. for nausea. Start Lovenox for deep venous thrombosis prophylaxis and Pepcid for peptic ulcer disease prophylaxis. Further recommendations based on clinical course. Plan of care discussed with Dr. Rooney. Subjective 24 Hr Interval Summary Free Text/Dictation NAD, rectal dressing taken out by DR Willett. dw staff. Constitutional: improved Respiratory: no complaints Cardiovascular: no complaints Gastrointestinal: no complaints Exam/Review of Systems Vital Signs Vitals Vital Signs Date Time Temp Pulse Resp B/P Pulse Ox O2 Delivery O2 Flow Rate FiO2 07/06/16 07:23 97.9 91 16 115/70 97 07/05/16 22:00 Room Air 07/05/16 20:16 6.0 Intake and Output 07/05/16 07/05/16 07/06/16 15:00 23:00 07:00 Intake Total 1500 ml 1420 ml Output Total 30 ml Balance 1470 ml 1420 ml Exam Constitutional: alert, oriented, well developed Results Result Diagram: 07/06/16 0530 07/06/16 0530 Results 24 hrs Laboratory Tests Test 07/05/16 17:15 07/06/16 05:30 Lactic Acid Level 1.4 Anion Gap 15 Basophils # 0.0 Basophils % 0.2 Blood Urea Nitrogen 10 Calcium Level 8.2 L Carbon Dioxide Level 27 Chloride Level 103 Creatinine 0.97 Eosinophils # 0.0 Eosinophils % 0.1 Glucose Level 105 Hematocrit 39.1 L Hemoglobin 12.7 L Lymphocytes # 2.5 Lymphocytes % 13.3 L Mean Corpuscular Hemoglobin 27.0 L Mean Corpuscular Hemoglobin Concent 32.5 Mean Corpuscular Volume 83.0 Mean Platelet Volume 12.0 H Monocytes # 1.6 H Monocytes % 8.6 Neutrophils # 14.4 H Neutrophils % 77.3 H Nucleated Red Blood Cells # 0.0 Nucleated Red Blood Cells % 0.0 Platelet Count 191 Potassium Level 3.7 Red Blood Count 4.71 Red Cell Distribution Width 13.8 Sodium Level 141 White Blood Count 18.6 H Medications Medications Current Medications Morphine Sulfate (morphine) 2 mg Q4H PRN IV PAIN Last administered on 07/06/16 09:23; Admin Dose 2 MG; Start 07/05/16 at 05:00 Acetaminophen/ Hydrocodone Bitart ([place] (5/325)) 1 tab Q6H PRN PO Mild- Moderate Pain; Start 07/05/16 at 09:30 Acetaminophen/ Hydrocodone Bitart ([place] (5/325)) 2 tab Q6H PRN PO Moderate- Severe Pain Last administered on 07/05/16 09:38; Admin Dose 2 TAB; Start at 09:30 Acetaminophen 650 mg 650 mg Q6H PRN PO PAIN AND OR ELEVATED TEMP; Start at 09:30 Vancomycin HCl/ Sodium Chloride (Vancocin/NS) 250 ml @ 83.333 mls/ hr Q12H IVPB Last administered on 07/06/16 11:54; Admin Dose 83.333 MLS/HR; Start at 00:00 Enoxaparin Sodium (Lovenox) 30 mg DAILY SC Last administered on 07/06/16 09:08 ; Admin Dose 30 MG; Start 07/05/16 at 13:30 Pantoprazole 40 mg 40 mg DAILY@06 PO Last administered on 07/06/16 05:30; Admin Dose 40 MG; Start 07/06/16 at 06:00 Sodium Chloride 1,000 ml @ 125 mls/hr Q8H IV Last administered on 07/06/16 09: 02; Admin Dose 125 MLS/HR; Start 07/05/16 at 13:30 Piperacillin Sod/ Tazobactam Sod (Zosyn 3.375gm/ 100 ml (Pmx)) 100 ml @ 200 mls /hr Q8H IVPB Last administered on 07/06/16 09:03; Admin Dose 200 MLS/HR; Start 07/05/16 at 17:00 Ondansetron HCl (Zofran Inj) 4 mg Q6H PRN IV NAUSEA AND/OR VOMITING; Start 07/05 at 20:00 Miscellaneous Information (*Rx Drug Level Order Reminder*) VANCO TROUGH @ 2, 300 ON... ONCE ONCE XX ; Start 07/06/16 at 23:00; Stop 07/06/16 at 23:01 FRITZ FUENTES Jul 06, 2016 14:09
[2016-07-06] MEDS: HYDROCODONE/APAP (5/325) TAB PO PRN (16:44)
[2016-07-07] MEDS: PIPER-TAZO 3.375 GM IV (PMX) 100 ML IVPB SCH ×2 (00:13→09:39)
[2016-07-07] MEDS: VANCOMYCIN 1.5 GM in SOD CHLORIDE 0.9% 250 ML IVPB SCH (01:20)
[2016-07-07] MEDS: SOD CHLORIDE 0.45% 1,000 ML IV SCH ×3 (04:59→21:09)
[2016-07-07] MEDS: PANTOPRAZOLE (EC) 40 MG TAB PO SCH (06:18)
[2016-07-07 07:57] LABS: ADD SCAN DIFF NO
[2016-07-07 08:00] LABS: BASOPHILS % 0.3 % (0.0-2.0); EOSINOPHILS % 0.4 % (0.0-7.0); HEMATOCRIT 39.6 % (42.0-52.0); HEMOGLOBIN 12.9 g/dl (14.0-18.0); LYMPHOCYTES % 17.2 % (15.0-51.0); MEAN CORPUSCULAR HEMOGLOBIN 26.8 pg (29.0-33.0); MEAN CORPUSCULAR HGB CONC 32.6 g/dl (32.0-37.0); MEAN CORPUSCULAR VOLUME 82.3 fl (82.0-101.0); MONOCYTES % 9.1 % (0.0-11.0); NEUTROPHIL # 8.3 10^3/ul (1.6-7.5); NEUTROPHILS % 72.6 % (39.0-77.0); PLATELET COUNT 212 10^3/UL (140-415); RED BLOOD COUNT 4.81 10^6/ul (4.70-6.10); RED CELL DISTRIBUTION WIDTH 13.7 % (11.5-14.5); WHITE BLOOD COUNT 11.4 10^3/ul (4.8-10.8)
[2016-07-07 08:16] VITALS: BP 121/84; RESP 20
[2016-07-07 08:48] LABS: POTASSIUM 3.9 mmol/L (3.5-5.1)
[2016-07-07 08:50] LABS: CREATININE 1.45 mg/dl (0.61-1.24)
[2016-07-07 08:51] LABS: CALCIUM 8.7 mg/dl (8.4-10.2)
[2016-07-07] MEDS: ENOXAPARIN 30 MG/0.3 ML SYG SC SCH (09:51)
[2016-07-07] MEDS: ERTAPENEM SODIUM 1 GM in SOD CHLORIDE 0.9% 100 ML IVPB SCH (13:33)
--- NOTE | 2016-07-07 13:48 | CONS ---
DATE OF ADMISSION: 07/05/2016 DATE OF CONSULTATION: 07/07/2016 TYPE OF CONSULTATION: Infectious Disease. REASON FOR CONSULTATION: Antibiotic management. HISTORY OF PRESENT ILLNESS: Vinny Knowles is a 41-year-old male who is admitted with left buttock abscess, fever and pain. The patient's past problems include: 1. Hypertension. 2. Hemorrhoids. 3. Prior history of hemorrhoidectomy x2 more than 1 year ago. The patient developed a perirectal abscess, was seen in the emergency room a month ago. He had an I and D in the ER and was discharged home with oral antibiotics. He finished the treatment with anti biotics, but continued to have perirectal swelling and severe pain. He presented to the emergency r oom and underwent a CT scan of the abdomen and pelvis with contrast, which revealed acute inflammato ry collection or abscess within the left ischiorectal foci adjacent to the anus measuring 4.6 x 4.4 x 2.9 cm with surrounding cellulitis and left gluteal fat, likely drainage to the skin surface, but no extension to the levator ani muscles into the pelvis and perirectal region. He also hepatic stea tosis, mild atherosclerosis with calcifications of the right common iliac artery. On admission, his temperature was 103.2, his white count was 16.9. He was started on vancomycin and Zosyn. His hemo globin and hematocrit were 14.9 and 45, platelet count 228,000. BUN and creatinine 11/1.8. The pat ient had abscess with leukocytosis. Blood cultures were done and Dr. Willett was asked to see the pat ient. He noted that the patient had a perirectal abscess. He did an incision and drainage of the p erirectal abscess. He made a cruciate incision over the most fluctuant part of the abscess and copi ous amounts of pus started to drain. The pus was suctioned. Loculations were broken up using a Pea n clamp. The abscess cavity was irrigated and the wound was then repacked. Currently, his white co unt is 18.6 on 07/06/2016. . MICROBIOLOGY: Urine and blood cultures are negative. The Gram stain is growing out E. coli ESBL, a nd the patient is on ertapenem which we placed him on this morning. He is also on vancomycin, thoug h the pus is growing out so far E. coli ESBL. If it continues though, we will stop the vancomycin. PAST MEDICAL HISTORY: Operations as outlined. FAMILY HISTORY: Noncontributory. SOCIAL HISTORY: He smokes 1 to 2 cigarettes a day for more than 20 years. He does not drink or abu se drugs. ALLERGIES: NONE TO PENICILLIN, SULFA OR FOODS. MEDICATIONS: Per chart. REVIEW OF SYSTEMS: As per HPI. PHYSICAL EXAMINATION: GENERAL: The patient is a well-developed, well-nourished male, alert, responsive, in no acute distr ess. VITAL SIGNS: Stable. He is afebrile. SKIN: Without generalized rash. HEENT: Within normal limits. NECK: Supple. LYMPH NODES: None palpable. LUNGS: Clear to P and A. HEART: Without murmur or gallop. ABDOMEN: Soft, nontender, without organosplenomegaly or masses. EXTREMITIES: Without cyanosis, clubbing, or edema. RECTAL AND GENITAL: Deferred. The patient has packing in the perirectal area status post surgery. The rectal dressing was taken out by Dr. Willett. PLAN: We will continue him on current therapy. I will dictate my findings to Dr. Rooney and Dr. Willett. Dictated By: ANTHONY MCCRACKEN MD, JD/LAUREL Conf#: [id number] DID#: [id number]
[2016-07-07] MEDS ORDERED: VANCOMYCIN 1.25 GM in SOD CHLORIDE 0.9% 250 ML IVPB SCH (14:00)
--- NOTE | 2016-07-07 15:43 | PN ---
Date/Time of Note Date/Time of Note DATE: 07/07/16 TIME: 15:39 Assessment/Plan VTE Prophylaxis VTE Prophylaxis Intervention: SCD's Lines/Catheters IV Catheter Type (from Nrs): Peripheral IV Central line still needed: Yes Assessment/Plan Chief Complaint/Hosp Course ASSESSMENT AND PLAN: 1. Perirectal abscess with surrounding cellulitis. Status post I&D by Dr. Willett, general surgery. Intraoperative cultures was E. coli ESBL, continue antibiotics per ID. Dr. Lewis is following an infection disease consultation. 2. Possible sepsis secondary to abscess with leukocytosis, tachycardia and fevers, resolving. Continue Lovenox for deep venous thrombosis prophylaxis and Pepcid for peptic ulcer disease prophylaxis. Further recommendations based on clinical course. Plan of care discussed with Dr. Rooney. Problems: Subjective 24 Hr Interval Summary Free Text/Dictation Patient is afebrile, heart rate is within normal limits, pain is well controlled. Exam/Review of Systems Vital Signs Vitals Vital Signs Date Time Temp Pulse Resp B/P Pulse Ox O2 Delivery O2 Flow Rate FiO2 07/07/16 08:16 97.5 89 20 121/84 98 07/05/16 22:00 Room Air 07/05/16 20:16 6.0 Intake and Output 07/06/16 07/06/16 07/07/16 14:59 22:59 06:59 Intake Total 825 ml 1455 ml Balance 825 ml 1455 ml Exam GENERAL: Well-developed, well-nourished gentleman, awake, alert. HEENT: Head is atraumatic, normocephalic. PERRLA. NECK: Supple, no cervical lymphadenopathy, no thyromegaly. CHEST: Lungs clear bilaterally. There is no rhonchi, wheezes, rales noted. CARDIOVASCULAR: Normal S1, S2. No murmurs, gallops, clicks, rubs noted. ABDOMEN: Soft, nondistended, nontender, round. There is no guarding, no rebound tenderness. Left buttock abscess status post I&D. SKIN: There is no rash, petechiae noted. NEUROLOGIC: Patient is awake, alert and oriented x4. EXTREMITIES: There is no edema, clubbing, cyanosis. Pulses equal bilaterally 2 +. Results Result Diagram: 07/07/16 0720 07/07/16 0720 Results 24 hrs Laboratory Tests Test 07/06/16 23:00 07/07/16 07:20 Vancomycin Level Trough 12.3 Anion Gap 17 H Basophils # 0.0 Basophils % 0.3 Blood Urea Nitrogen 13 Calcium Level 8.7 Carbon Dioxide Level 25 Chloride Level 106 Creatinine 1.45 H Eosinophils # 0.0 Eosinophils % 0.4 Glucose Level 102 Hematocrit 39.6 L Hemoglobin 12.9 L Lymphocytes # 2.0 Lymphocytes % 17.2 Mean Corpuscular Hemoglobin 26.8 L Mean Corpuscular Hemoglobin Concent 32.6 Mean Corpuscular Volume 82.3 Mean Platelet Volume 12.0 H Monocytes # 1.0 H Monocytes % 9.1 Neutrophils # 8.3 H Neutrophils % 72.6 Nucleated Red Blood Cells # 0.0 Nucleated Red Blood Cells % 0.0 Platelet Count 212 Potassium Level 3.9 Red Blood Count 4.81 Red Cell Distribution Width 13.7 Sodium Level 144 White Blood Count 11.4 #H Medications Medications Current Medications Morphine Sulfate (morphine) 2 mg Q4H PRN IV PAIN Last administered on 07/06/16 09:23; Admin Dose 2 MG; Start 07/05/16 at 05:00 Acetaminophen/ Hydrocodone Bitart ([place] (5/325)) 1 tab Q6H PRN PO Mild- Moderate Pain Last administered on 07/06/16 16:44; Admin Dose 1 TAB; Start at 09:30 Acetaminophen/ Hydrocodone Bitart ([place] (5/325)) 2 tab Q6H PRN PO Moderate- Severe Pain Last administered on 07/05/16 09:38; Admin Dose 2 TAB; Start at 09:30 Acetaminophen (Tylenol Tab) 650 mg Q6H PRN PO PAIN AND OR ELEVATED TEMP; Start 07/05/16 at 09:30 Enoxaparin Sodium (Lovenox) 30 mg DAILY SC Last administered on 07/07/16 09:51 ; Admin Dose 30 MG; Start 07/05/16 at 13:30 Pantoprazole 40 mg 40 mg DAILY@06 PO Last administered on 07/07/16 06:18; Admin Dose 40 MG; Start 07/06/16 at 06:00 Sodium Chloride (1/2 NS) 1,000 ml @ 125 mls/hr Q8H IV Last administered on 3/3 /17at 14:04; Admin Dose 125 MLS/HR; Start 07/05/16 at 13:30 Ondansetron HCl 4 mg 4 mg Q6H PRN IV NAUSEA AND/OR VOMITING; Start 07/05/16 at 20:00 Ertapenem/Sodium Chloride (Invanz/NS) 100 ml @ 200 mls/hr Q24H IVPB Last administered on 07/07/16t 13:33; Admin Dose 200 MLS/HR; Start 07/07/16 at 13:00 FERNY THOMPSON Jul 07, 2016 15:43
--- NOTE | 2016-07-07 18:39 | PN ---
Date/Time of Note Date/Time of Note DATE: 07/07/16 TIME: 18:38 Assessment/Plan Lines/Catheters IV [facility] (from [facility]): Peripheral IV Assessment/Plan Assessment/Plan 41-year-old male with perirectal abscess status post incision and drainage postop day #2 * Continue local wound care * Wound culture grew ESBL. Patient on appropriate antibiotics. * Leukocytosis improved. * Surgically stable. * Continue antibiotic management per ID Subjective 24 Hr Interval Summary Doing well. Denies pain. Afebrile. Exam/Review of Systems Vital Signs Vitals Vital Signs Date Time Temp Pulse Resp B/P Pulse Ox O2 Delivery O2 Flow Rate FiO2 07/07/16 08:16 97.5 89 20 121/84 98 07/05/16 22:00 Room Air 07/05/16 20:16 6.0 Intake and Output 07/06/16 07/06/16 07/07/16 15:00 23:00 07:00 Intake Total 250 ml 575 ml 1455 ml Balance 250 ml 575 ml 1455 ml Exam Free Text/Dictation WOUND: Clean, dry. No drainage. Cellulitis improved Results Result Diagram: 07/07/16 0720 07/07/16 0720 DELFINA MENDOZA MD Jul 07, 2016 18:39
[2016-07-07 20:23] VITALS: BP 120/77; PULSE 90
[2016-07-08 05:08] LABS: ADD SCAN DIFF NO
[2016-07-08] MEDS: SOD CHLORIDE 0.45% 1,000 ML IV SCH ×5 (05:20→23:34)
[2016-07-08 05:23] LABS: BASOPHILS % 0.4 % (0.0-2.0); EOSINOPHILS # 0.1 10^3/ul (0.0-0.5); EOSINOPHILS % 1.2 % (0.0-7.0); HEMATOCRIT 39.4 % (42.0-52.0); HEMOGLOBIN 12.8 g/dl (14.0-18.0); LYMPHOCYTES # 2.6 10^3/ul (0.8-2.9); LYMPHOCYTES % 27.6 % (15.0-51.0); MEAN CORPUSCULAR HEMOGLOBIN 26.8 pg (29.0-33.0); MEAN CORPUSCULAR HGB CONC 32.5 g/dl (32.0-37.0); MEAN CORPUSCULAR VOLUME 82.6 fl (82.0-101.0); MEAN PLATELET VOLUME 11.6 fl (7.4-10.4); MONOCYTE # 0.9 10^3/ul (0.3-0.9); MONOCYTES % 9.3 % (0.0-11.0); NEUTROPHIL # 5.7 10^3/ul (1.6-7.5); NEUTROPHILS % 61.1 % (39.0-77.0); PLATELET COUNT 247 10^3/UL (140-415); RED BLOOD COUNT 4.77 10^6/ul (4.70-6.10); RED CELL DISTRIBUTION WIDTH 13.9 % (11.5-14.5); WHITE BLOOD COUNT 9.4 10^3/ul (4.8-10.8)
[2016-07-08] MEDS: PANTOPRAZOLE (EC) 40 MG TAB PO SCH (05:35)
[2016-07-08 06:17] LABS: POTASSIUM 3.4 mmol/L (3.5-5.1)
[2016-07-08 06:19] LABS: CREATININE 1.46 mg/dl (0.61-1.24)
[2016-07-08 06:20] LABS: CALCIUM 8.8 mg/dl (8.4-10.2)
[2016-07-08 07:56] VITALS: BP 107/65; RESP 16
[2016-07-08] MEDS: ENOXAPARIN 30 MG/0.3 ML SYG SC SCH (08:55)
--- NOTE | 2016-07-08 10:16 | PN ---
Date/Time of Note Date/Time of Note DATE: 07/08/16 TIME: 10:15 Assessment/Plan VTE Prophylaxis VTE Prophylaxis Intervention: other Lines/Catheters IV Catheter Type (from Nrs): Peripheral IV Assessment/Plan Chief Complaint/Hosp Course 1. Perirectal abscess with surrounding cellulitis. Status post I&D by Dr. Willett, general surgery. Intraoperative cultures was E. coli ESBL, continue antibiotics per ID. Dr. Lewis is following an infection disease consultation. 2. Possible sepsis secondary to abscess with leukocytosis, tachycardia and fevers, resolving. Continue Lovenox for deep venous thrombosis prophylaxis and Pepcid for peptic ulcer disease prophylaxis. Problems: Subjective 24 Hr Interval Summary Free Text/Dictation Patient denies any pain Exam/Review of Systems Vital Signs Vitals Vital Signs Date Time Temp Pulse Resp B/P Pulse Ox O2 Delivery O2 Flow Rate FiO2 07/08/16 07:56 97.5 71 16 107/65 96 07/07/16 20:23 Room Air 07/05/16 20:16 6.0 Intake and Output 07/07/16 07/07/16 07/08/16 15:00 23:00 07:00 Intake Total 920 ml 6100 ml 1000 ml Balance 920 ml 6100 ml 1000 ml Exam Head: atraumatic, normocephalic Neck: supple Respiratory: clear to auscultation Cardiovascular: regular rate and rhythm Gastrointestinal: non-tender, soft Results Result Diagram: 07/08/16 0450 07/08/16 0450 Results 24 hrs Laboratory Tests Test 07/08/16 04:50 Anion Gap 14 Basophils # 0.0 Basophils % 0.4 Blood Urea Nitrogen 11 Calcium Level 8.8 Carbon Dioxide Level 26 Chloride Level 109 Creatinine 1.46 H Eosinophils # 0.1 Eosinophils % 1.2 Glucose Level 107 Hematocrit 39.4 L Hemoglobin 12.8 L Lymphocytes # 2.6 Lymphocytes % 27.6 Mean Corpuscular Hemoglobin 26.8 L Mean Corpuscular Hemoglobin Concent 32.5 Mean Corpuscular Volume 82.6 Mean Platelet Volume 11.6 H Monocytes # 0.9 Monocytes % 9.3 Neutrophils # 5.7 Neutrophils % 61.1 Nucleated Red Blood Cells # 0.0 Nucleated Red Blood Cells % 0.0 Platelet Count 247 Potassium Level 3.4 L Red Blood Count 4.77 Red Cell Distribution Width 13.9 Sodium Level 146 H White Blood Count 9.4 Medications Medications Current Medications Morphine Sulfate (morphine) 2 mg Q4H PRN IV PAIN Last administered on 07/06/16 09:23; Admin Dose 2 MG; Start 07/05/16 at 05:00 Acetaminophen/ Hydrocodone Bitart ([place] (5/325)) 1 tab Q6H PRN PO Mild- Moderate Pain Last administered on 07/06/16 16:44; Admin Dose 1 TAB; Start at 09:30 Acetaminophen/ Hydrocodone Bitart ([place] (5/325)) 2 tab Q6H PRN PO Moderate- Severe Pain Last administered on 07/05/16 09:38; Admin Dose 2 TAB; Start at 09:30 Acetaminophen (Tylenol Tab) 650 mg Q6H PRN PO PAIN AND OR ELEVATED TEMP; Start 07/05/16 at 09:30 Enoxaparin Sodium (Lovenox) 30 mg DAILY SC Last administered on 07/08/16 08:55 ; Admin Dose 30 MG; Start 07/05/16 at 13:30 Pantoprazole 40 mg 40 mg DAILY@06 PO Last administered on 07/08/16 05:35; Admin Dose 40 MG; Start 07/06/16 at 06:00 Sodium Chloride (1/2 NS) 1,000 ml @ 125 mls/hr Q8H IV Last administered on 07/08 05:35; Admin Dose 125 MLS/HR; Start 07/05/16 at 13:30 Ondansetron HCl 4 mg 4 mg Q6H PRN IV NAUSEA AND/OR VOMITING; Start 07/05/16 at 20:00 Ertapenem/Sodium Chloride (Invanz/NS) 100 ml @ 200 mls/hr Q24H IVPB Last administered on 07/07/16 13:33; Admin Dose 200 MLS/HR; Start 07/07/16 at 13:00 Docusate Sodium (Colace) 100 mg BID PO ; Start 07/08/16 at 10:30; Status JESSEE WEST Y Jul 08, 2016 10:16
[2016-07-08] MEDS: DOCUSATE SODIUM 100 MG CAP PO SCH ×2 (10:47→20:40)
[2016-07-08] MEDS: ERTAPENEM SODIUM 1 GM in SOD CHLORIDE 0.9% 100 ML IVPB SCH (12:57)
--- NOTE | 2016-07-08 13:57 | PN ---
DATE: 07/08/2016 SUBJECTIVE: No events overnight. No fevers. Patient is alert, feels better. Looks comfortable. ANTIMICROBIALS: Invanz. WBC today 9.4, no shift, no bands. BUN 11, creatinine 1.46. MICROBIOLOGY: Abscess cultures grew E. coli ESBL, gamma hemolytic strep species. PHYSICAL EXAMINATION: GENERAL: This is well-developed, middle-aged man who is alert, in no distress. HEENT: Head atraumatic, normocephalic. Sclerae anicteric. Buccal mucosa pink. NECK: Supple, trachea midline. CHEST: Rise symmetrical. Breath sounds clear. HEART: S1, S2. ABDOMEN: Soft, bowel tones present. EXTREMITIES: No cyanosis. ASSESSMENT: 1. Inflammatory response syndrome. 2. Status post incision and drainage of perirectal abscess on 07/05/2016. 3. Hypertension. 4. History of hemorrhoidectomy. PLAN: The patient remains stable on appropriate antimicrobials. Continue present care, surgical re commendations. Dictated By: EMIGDIO OLIVO SANITARIAN for ANTHONY BARAJAS/LAUREL Conf#: [id number] DID#: [id number]
[2016-07-08 20:00] VITALS: BP 129/82; RESP 18
[2016-07-09] MEDS: SOD CHLORIDE 0.45% 1,000 ML IV SCH ×3 (05:30→21:30)
[2016-07-09] MEDS: PANTOPRAZOLE (EC) 40 MG TAB PO SCH (06:03)
[2016-07-09 07:31] VITALS: BP 119/79; RESP 16
[2016-07-09] MEDS: DOCUSATE SODIUM 100 MG CAP PO SCH ×2 (08:35→20:57)
[2016-07-09] MEDS: ENOXAPARIN 30 MG/0.3 ML SYG SC SCH (09:00)
--- NOTE | 2016-07-09 11:50 | PN ---
Date/Time of Note Date/Time of Note DATE: 07/09/16 TIME: 11:49 Assessment/Plan VTE Prophylaxis VTE Prophylaxis Intervention: other Lines/Catheters IV Catheter Type (from Nrsg): Peripheral IV Assessment/Plan Chief Complaint/Hosp Course 1. Perirectal abscess with surrounding cellulitis. Status post I&D by Dr. Willett, general surgery. Intraoperative cultures was E. coli ESBL, continue antibiotics per ID. Dr. Lewis is following an infection disease consultation. 2. Possible sepsis secondary to abscess with leukocytosis, tachycardia and fevers, resolving. Continue Lovenox for deep venous thrombosis prophylaxis and Pepcid for peptic ulcer disease prophylaxis. Problems: Subjective 24 Hr Interval Summary Free Text/Dictation Patient denies any rectal pain Exam/Review of Systems Vital Signs Vitals Vital Signs Date Time Temp Pulse Resp B/P Pulse Ox O2 Delivery O2 Flow Rate FiO2 07/09/16 07:31 98.6 89 16 119/79 98 07/07/16 20:23 Room Air 07/05/16 20:16 6.0 Intake and Output 07/08/16 07/08/16 07/09/16 15:00 23:00 07:00 Intake Total 1000 ml 1620 ml 2020 ml Balance 1000 ml 1620 ml 2020 ml Exam Constitutional: well developed Neck: supple Respiratory: clear to auscultation Cardiovascular: regular rate and rhythm Gastrointestinal: non-tender, soft Results Result Diagram: 07/08/16 0450 07/08/16 0450 Medications Medications Current Medications Morphine Sulfate (morphine) 2 mg Q4H PRN IV PAIN Last administered on 07/06/16 09:23; Admin Dose 2 MG; Start 07/05/16 at 05:00 Acetaminophen/ Hydrocodone Bitart ([place] (5/325)) 1 tab Q6H PRN PO Mild- Moderate Pain Last administered on 07/06/16 16:44; Admin Dose 1 TAB; Start at 09:30 Acetaminophen/ Hydrocodone Bitart ([place] (5/325)) 2 tab Q6H PRN PO Moderate- Severe Pain Last administered on 07/05/16 09:38; Admin Dose 2 TAB; Start at 09:30 Acetaminophen (Tylenol Tab) 650 mg Q6H PRN PO PAIN AND OR ELEVATED TEMP; Start 07/05/16 at 09:30 Enoxaparin Sodium (Lovenox) 30 mg DAILY SC Last administered on 07/08/16 08:55 ; Admin Dose 30 MG; Start 07/05/16 at 13:30 Pantoprazole 40 mg 40 mg DAILY@06 PO Last administered on 07/09/16 06:03; Admin Dose 40 MG; Start 07/06/16 at 06:00 Sodium Chloride (1/2 NS) 1,000 ml @ 125 mls/hr Q8H IV Last administered on 07/08 23:34; Admin Dose 125 MLS/HR; Start 07/05/16 at 13:30 Ondansetron HCl 4 mg 4 mg Q6H PRN IV NAUSEA AND/OR VOMITING; Start 07/05/16 at 20:00 Ertapenem/Sodium Chloride (Invanz/NS) 100 ml @ 200 mls/hr Q24H IVPB Last administered on 07/08/16 12:57; Admin Dose 200 MLS/HR; Start 07/07/16 at 13:00 Docusate Sodium (Colace) 100 mg BID PO Last administered on 07/09/16 08:35; Admin Dose 100 MG; Start 07/08/16 at 10:30 JESSEE SANCHEZ Jul 09, 2016 11:50
[2016-07-09] MEDS: ERTAPENEM SODIUM 1 GM in SOD CHLORIDE 0.9% 100 ML IVPB SCH (12:24)
--- NOTE | 2016-07-09 15:29 | CONS ---
Date/Time of Note Date/Time of Note DATE: 07/09/16 TIME: 15:24 Assessment/Plan Assessment/Plan Chief Complaint/Hosp Course SUBJECTIVE: No events overnight. No fevers. Patient is alert, feels better. Looks comfortable. ANTIMICROBIALS: Invanz. MICROBIOLOGY: Abscess cultures grew E. coli ESBL, gamma hemolytic strep species and Bacteroides. PHYSICAL EXAMINATION: GENERAL: This is well-developed, middle-aged man who is alert, in no distress. HEENT: Head atraumatic, normocephalic. Sclerae anicteric. Buccal mucosa pink. NECK: Supple, trachea midline. CHEST: Rise symmetrical. Breath sounds clear. HEART: S1, S2. ABDOMEN: Soft, bowel tones present. EXTREMITIES: No cyanosis. ASSESSMENT: 1. Inflammatory response syndrome. 2. Status post incision and drainage of perirectal abscess on 07/05/2016. 3. Hypertension. 4. History of hemorrhoidectomy. PLAN: The patient remains stable, on appropriate antimicrobials. Continue present care, will surgery plan of care. staff Problems: Consultation Date/Type/Reason Admit Date/Time Jul 05, 2016 at 03:32 Initial Consult Date 07/05/16 Type of Consultation: ID Exam/Review of Systems Vital Signs Vitals Vital Signs Date Time Temp Pulse Resp B/P Pulse Ox O2 Delivery O2 Flow Rate FiO2 07/09/16 07:31 98.6 89 16 119/79 98 07/07/16 20:23 Room Air 07/05/16 20:16 6.0 Intake and Output 07/08/16 07/08/16 07/09/16 15:00 23:00 07:00 Intake Total 1000 ml 1620 ml 2020 ml Balance 1000 ml 1620 ml 2020 ml Results Result Diagram: 07/08/16 0450 07/08/16 0450 Medications Medications Current Medications Morphine Sulfate (morphine) 2 mg Q4H PRN IV PAIN Last administered on 07/06/16 09:23; Admin Dose 2 MG; Start 07/05/16 at 05:00 Acetaminophen/ Hydrocodone Bitart ([place] (5/325)) 1 tab Q6H PRN PO Mild- Moderate Pain Last administered on 07/06/16 16:44; Admin Dose 1 TAB; Start at 09:30 Acetaminophen/ Hydrocodone Bitart ([place] (5/325)) 2 tab Q6H PRN PO Moderate- Severe Pain Last administered on 07/05/16 09:38; Admin Dose 2 TAB; Start at 09:30 Acetaminophen (Tylenol Tab) 650 mg Q6H PRN PO PAIN AND OR ELEVATED TEMP; Start 07/05/16 at 09:30 Enoxaparin Sodium (Lovenox) 30 mg DAILY SC Last administered on 07/08/16 08:55 ; Admin Dose 30 MG; Start 07/05/16 at 13:30 Pantoprazole 40 mg 40 mg DAILY@06 PO Last administered on 07/09/16 06:03; Admin Dose 40 MG; Start 07/06/16 at 06:00 Sodium Chloride (1/2 NS) 1,000 ml @ 125 mls/hr Q8H IV Last administered on 07/09 13:30; Admin Dose 125 MLS/HR; Start 07/05/16 at 13:30 Ondansetron HCl 4 mg 4 mg Q6H PRN IV NAUSEA AND/OR VOMITING Last administered on 07/09/16 14:17; Admin Dose 4 MG; Start 07/05/16 at 20:00 Ertapenem/Sodium Chloride (Invanz/NS) 100 ml @ 200 mls/hr Q24H IVPB Last administered on 07/09/16 12:24; Admin Dose 200 MLS/HR; Start 07/07/16 at 13:00 Docusate Sodium (Colace) 100 mg BID PO Last administered on 07/09/16 08:35; Admin Dose 100 MG; Start 07/08/16 at 10:30 EMIGDIO OLIVO NP Jul 09, 2016 15:29
[2016-07-09 19:17] VITALS: BP 131/82; RESP 18
[2016-07-09] MEDS: HYDROCODONE/APAP (5/325) TAB PO PRN (20:57)
[2016-07-10] MEDS: SOD CHLORIDE 0.45% 1,000 ML IV SCH ×3 (00:56→23:11)
[2016-07-10] MEDS: PANTOPRAZOLE (EC) 40 MG TAB PO SCH (05:58)
[2016-07-10 07:51] VITALS: BP 120/84; RESP 20
[2016-07-10] MEDS: ENOXAPARIN 30 MG/0.3 ML SYG SC SCH (08:58)
[2016-07-10] MEDS: DOCUSATE SODIUM 100 MG CAP PO SCH ×2 (08:58→21:33)
--- NOTE | 2016-07-10 12:14 | CONS ---
Date/Time of Note Date/Time of Note DATE: 07/10/16 TIME: 12:13 Assessment/Plan Assessment/Plan Chief Complaint/Hosp Course SUBJECTIVE: No events overnight. Sleeping. Looks comfortable. ANTIMICROBIALS: Invanz. MICROBIOLOGY: Abscess cultures grew E. coli ESBL, gamma hemolytic strep species and Bacteroides. PHYSICAL EXAMINATION: GENERAL: This is well-developed, middle-aged man who is alert, in no distress. HEENT: Head atraumatic, normocephalic. Sclerae anicteric. Buccal mucosa pink. NECK: Supple, trachea midline. CHEST: Rise symmetrical. Breath sounds clear. HEART: S1, S2. ABDOMEN: Soft, bowel tones present. EXTREMITIES: No cyanosis. ASSESSMENT: 1. Inflammatory response syndrome. 2. Status post incision and drainage of perirectal abscess on 07/05/2016. 3. Hypertension. 4. History of hemorrhoidectomy. PLAN: The patient remains stable, on appropriate antimicrobials. Will dw surgery if he can go home of abx since abscess was drained DW staff Problems: Consultation Date/Type/Reason Admit Date/Time Jul 05, 2016 at 03:32 Initial Consult Date 07/05/16 Type of Consultation: ID Exam/Review of Systems Vital Signs Vitals Vital Signs Date Time Temp Pulse Resp B/P Pulse Ox O2 Delivery O2 Flow Rate FiO2 07/10/16 07:51 98.1 89 20 120/84 95 07/07/16 20:23 Room Air Intake and Output 07/09/16 07/09/16 07/10/16 15:00 23:00 07:00 Intake Total 3400 ml 1920 ml Balance 3400 ml 1920 ml Results Result Diagram: 07/08/16 0450 07/08/16 0450 Medications Medications Current Medications Morphine Sulfate (morphine) 2 mg Q4H PRN IV PAIN Last administered on 07/06/16 09:23; Admin Dose 2 MG; Start 07/05/16 at 05:00 Acetaminophen/ Hydrocodone Bitart ([place] (5/325)) 1 tab Q6H PRN PO Mild- Moderate Pain Last administered on 07/09/16 20:57; Admin Dose 1 TAB; Start at 09:30 Acetaminophen/ Hydrocodone Bitart ([place] (5/325)) 2 tab Q6H PRN PO Moderate- Severe Pain Last administered on 07/05/16 09:38; Admin Dose 2 TAB; Start at 09:30 Acetaminophen (Tylenol Tab) 650 mg Q6H PRN PO PAIN AND OR ELEVATED TEMP; Start 07/05/16 at 09:30 Enoxaparin Sodium (Lovenox) 30 mg DAILY SC Last administered on 07/10/16 08:58 ; Admin Dose 30 MG; Start 07/05/16 at 13:30 Pantoprazole 40 mg 40 mg DAILY@06 PO Last administered on 07/10/16 05:58; Admin Dose 40 MG; Start 07/06/16 at 06:00 Sodium Chloride (1/2 NS) 1,000 ml @ 125 mls/hr Q8H IV Last administered on 07/10 00:56; Admin Dose 125 MLS/HR; Start 07/05/16 at 13:30 Ondansetron HCl 4 mg 4 mg Q6H PRN IV NAUSEA AND/OR VOMITING Last administered on 07/09/16 14:17; Admin Dose 4 MG; Start 07/05/16 at 20:00 Ertapenem/Sodium Chloride (Invanz/NS) 100 ml @ 200 mls/hr Q24H IVPB Last administered on 07/09/16 12:24; Admin Dose 200 MLS/HR; Start 07/07/16 at 13:00 Docusate Sodium (Colace) 100 mg BID PO Last administered on 07/10/16 08:58; Admin Dose 100 MG; Start 07/08/16 at 10:30 EMIGDIO OLIVO NP Jul 10, 2016 12:14
[2016-07-10] MEDS: ERTAPENEM SODIUM 1 GM in SOD CHLORIDE 0.9% 100 ML IVPB SCH (12:20)
--- NOTE | 2016-07-10 18:23 | PN ---
Date/Time of Note Date/Time of Note DATE: 07/10/16 TIME: 18:22 Assessment/Plan VTE Prophylaxis VTE Prophylaxis Intervention: SCD's Lines/Catheters IV [facility]ter Type (from [facility]): Peripheral IV Urinary Cath still in place: No Assessment/Plan Chief Complaint/Hosp Course ASSESSMENT AND PLAN: 1. Perirectal abscess with surrounding cellulitis. Status post I&D by Dr. Willett, general surgery. Intraoperative cultures was E. coli ESBL, continue antibiotics per ID. Dr. Lewis is following an infection disease consultation. 2. Possible sepsis secondary to abscess with leukocytosis, tachycardia and fevers, resolving. Await for final ID recs. Continue Lovenox for deep venous thrombosis prophylaxis and Pepcid for peptic ulcer disease prophylaxis. Further recommendations based on clinical course. Plan of care discussed with Dr. Rooney. Problems: Subjective 24 Hr Interval Summary Free Text/Dictation Tmax is 99.3, patient denies N/V. Exam/Review of Systems Vital Signs Vitals Vital Signs Date Time Temp Pulse Resp B/P Pulse Ox O2 Delivery O2 Flow Rate FiO2 07/10/16 07:51 98.1 89 20 120/84 95 07/07/16 20:23 Room Air Intake and Output 07/09/16 07/09/16 07/10/16 15:00 23:00 07:00 Intake Total 3400 ml 1920 ml Balance 3400 ml 1920 ml Exam GENERAL: Well-developed, well-nourished gentleman, awake, alert. HEENT: Head is atraumatic, normocephalic. PERRLA. NECK: Supple, no cervical lymphadenopathy, no thyromegaly. CHEST: Lungs clear bilaterally. There is no rhonchi, wheezes, rales noted. CARDIOVASCULAR: Normal S1, S2. No murmurs, gallops, clicks, rubs noted. ABDOMEN: Soft, nondistended, nontender, round. There is no guarding, no rebound tenderness. Left buttock abscess status post I&D. SKIN: There is no rash, petechiae noted. NEUROLOGIC: Patient is awake, alert and oriented x4. EXTREMITIES: There is no edema, clubbing, cyanosis. Pulses equal bilaterally 2 +. Results Result Diagram: 07/08/16 0450 07/08/16 045 Medications Medications Current Medications Morphine Sulfate (morphine) 2 mg Q4H PRN IV PAIN Last administered on 07/06/16 09:23; Admin Dose 2 MG; Start 07/05/16 at 05:00 Acetaminophen/ Hydrocodone Bitart ([place] (5/325)) 1 tab Q6H PRN PO Mild- Moderate Pain Last administered on 07/09/16 20:57; Admin Dose 1 TAB; Start at 09:30 Acetaminophen/ Hydrocodone Bitart ([place] (5/325)) 2 tab Q6H PRN PO Moderate- Severe Pain Last administered on 07/05/16 09:38; Admin Dose 2 TAB; Start at 09:30 Acetaminophen (Tylenol Tab) 650 mg Q6H PRN PO PAIN AND OR ELEVATED TEMP; Start 07/05/16 at 09:30 Enoxaparin Sodium (Lovenox) 30 mg DAILY SC Last administered on 07/10/16 08:58 ; Admin Dose 30 MG; Start 07/05/16 at 13:30 Pantoprazole 40 mg 40 mg DAILY@06 PO Last administered on 07/10/16 05:58; Admin Dose 40 MG; Start 07/06/16 at 06:00 Sodium Chloride (1/2 NS) 1,000 ml @ 125 mls/hr Q8H IV Last administered on 07/10 12:21; Admin Dose 125 MLS/HR; Start 07/05/16 at 13:30 Ondansetron HCl 4 mg 4 mg Q6H PRN IV NAUSEA AND/OR VOMITING Last administered on 07/09/16 14:17; Admin Dose 4 MG; Start 07/05/16 at 20:00 Ertapenem/Sodium Chloride (Invanz/NS) 100 ml @ 200 mls/hr Q24H IVPB Last administered on 07/10/16 12:20; Admin Dose 200 MLS/HR; Start 07/07/16 at 13:00 Docusate Sodium (Colace) 100 mg BID PO Last administered on 07/10/16 08:58; Admin Dose 100 MG; Start 07/08/16 at 10:30 FERNY THOMPSON Jul 10, 2016 18:23
[2016-07-10 19:55] VITALS: BP 133/83; RESP 20
[2016-07-11 04:57] LABS: ADD SCAN DIFF NO
[2016-07-11 05:03] LABS: BASOPHIL # 0.1 10^3/ul (0.0-0.1); BASOPHILS % 0.4 % (0.0-2.0); EOSINOPHILS # 0.2 10^3/ul (0.0-0.5); EOSINOPHILS % 1.8 % (0.0-7.0); HEMOGLOBIN 12.9 g/dl (14.0-18.0); LYMPHOCYTES # 2.6 10^3/ul (0.8-2.9); MEAN CORPUSCULAR HEMOGLOBIN 26.7 pg (29.0-33.0); MEAN CORPUSCULAR HGB CONC 32.3 g/dl (32.0-37.0); MEAN CORPUSCULAR VOLUME 82.6 fl (82.0-101.0); MEAN PLATELET VOLUME 10.9 fl (7.4-10.4); MONOCYTE # 1.2 10^3/ul (0.3-0.9); MONOCYTES % 10.2 % (0.0-11.0); NEUTROPHILS % 65.8 % (39.0-77.0); PLATELET COUNT 304 10^3/UL (140-415); RED BLOOD COUNT 4.84 10^6/ul (4.70-6.10); RED CELL DISTRIBUTION WIDTH 13.5 % (11.5-14.5); WHITE BLOOD COUNT 12.1 10^3/ul (4.8-10.8)
[2016-07-11] MEDS: SOD CHLORIDE 0.45% 1,000 ML IV SCH ×2 (05:30→07:29)
[2016-07-11 05:31] LABS: POTASSIUM 3.7 mmol/L (3.5-5.1)
[2016-07-11 05:34] LABS: CREATININE 1.41 mg/dl (0.61-1.24)
[2016-07-11 05:35] LABS: CALCIUM 8.8 mg/dl (8.4-10.2)
[2016-07-11] MEDS: PANTOPRAZOLE (EC) 40 MG TAB PO SCH (05:55)
[2016-07-11 07:31] VITALS: BP 116/77; RESP 18
[2016-07-11] MEDS: DOCUSATE SODIUM 100 MG CAP PO SCH (09:13)
[2016-07-11] MEDS: ENOXAPARIN 30 MG/0.3 ML SYG SC SCH (09:59)
--- NOTE | 2016-07-11 12:09 | CONS ---
Date/Time of Note Date/Time of Note DATE: 07/11/16 TIME: 12:07 Assessment/Plan Assessment/Plan Chief Complaint/Hosp Course SUBJECTIVE: No events overnight. alert, feels good, no fevers. ANTIMICROBIALS: Invanz. MICROBIOLOGY: Abscess cultures grew E. coli ESBL, gamma hemolytic strep species and Bacteroides. PHYSICAL EXAMINATION: GENERAL: This is well-developed, middle-aged man who is alert, in no distress. HEENT: Head atraumatic, normocephalic. Sclerae anicteric. Buccal mucosa pink. NECK: Supple, trachea midline. CHEST: Rise symmetrical. Breath sounds clear. HEART: S1, S2. ABDOMEN: Soft, bowel tones present. EXTREMITIES: No cyanosis. ASSESSMENT: 1. Inflammatory response syndrome. 2. Status post incision and drainage of perirectal abscess on 07/05/2016. 3. Hypertension. 4. History of hemorrhoidectomy. PLAN: The patient remains stable, on appropriate antimicrobials. As per DW Dr Willett ok to be dc off abx DW staff Problems: Consultation Date/Type/Reason Admit Date/Time Jul 05, 2016 at 03:32 Initial Consult Date 07/05/16 Type of Consultation: ID Exam/Review of Systems Vital Signs Vitals Vital Signs Date Time Temp Pulse Resp B/P Pulse Ox O2 Delivery O2 Flow Rate FiO2 07/11/16 07:31 98.6 77 18 116/77 96 07/07/16 20:23 Room Air Intake and Output 07/10/16 07/10/16 07/11/16 15:00 23:00 07:00 Intake Total 1225 ml 1520 ml 1060 ml Balance 1225 ml 1520 ml 1060 ml Results Result Diagram: 07/11/16 0445 07/11/16 0445 Results 24 hrs Laboratory Tests Test 07/11/16 04:45 Anion Gap 15 Basophils # 0.1 Basophils % 0.4 Blood Urea Nitrogen 12 Calcium Level 8.8 Carbon Dioxide Level 26 Chloride Level 106 Creatinine 1.41 H Eosinophils # 0.2 Eosinophils % 1.8 Glucose Level 108 Hematocrit 40.0 L Hemoglobin 12.9 L Lymphocytes # 2.6 Lymphocytes % 21.0 Mean Corpuscular Hemoglobin 26.7 L Mean Corpuscular Hemoglobin Concent 32.3 Mean Corpuscular Volume 82.6 Mean Platelet Volume 10.9 H Monocytes # 1.2 H Monocytes % 10.2 Neutrophils # 8.0 H Neutrophils % 65.8 Nucleated Red Blood Cells # 0.0 Nucleated Red Blood Cells % 0.0 Platelet Count 304 # Potassium Level 3.7 Red Blood Count 4.84 Red Cell Distribution Width 13.5 Sodium Level 143 White Blood Count 12.1 #H Medications Medications Current Medications Morphine Sulfate (morphine) 2 mg Q4H PRN IV PAIN Last administered on 07/06/16 09:23; Admin Dose 2 MG; Start 07/05/16 at 05:00 Acetaminophen/ Hydrocodone Bitart ([place] (5/325)) 1 tab Q6H PRN PO Mild- Moderate Pain Last administered on 07/09/16 20:57; Admin Dose 1 TAB; Start at 09:30 Acetaminophen/ Hydrocodone Bitart ([place] (5/325)) 2 tab Q6H PRN PO Moderate- Severe Pain Last administered on 07/05/16 09:38; Admin Dose 2 TAB; Start at 09:30 Acetaminophen (Tylenol Tab) 650 mg Q6H PRN PO PAIN AND OR ELEVATED TEMP; Start 07/05/16 at 09:30 Enoxaparin Sodium (Lovenox) 30 mg DAILY SC Last administered on 07/11/16 09:59 ; Admin Dose 30 MG; Start 07/05/16 at 13:30 Pantoprazole 40 mg 40 mg DAILY@06 PO Last administered on 07/11/16 05:55; Admin Dose 40 MG; Start 07/06/16 at 06:00 Sodium Chloride (1/2 NS) 1,000 ml @ 125 mls/hr Q8H IV Last administered on 07/11 07:29; Admin Dose 125 MLS/HR; Start 07/05/16 at 13:30 Ondansetron HCl 4 mg 4 mg Q6H PRN IV NAUSEA AND/OR VOMITING Last administered on 07/09/16 14:17; Admin Dose 4 MG; Start 07/05/16 at 20:00 Ertapenem/Sodium Chloride (Invanz/NS) 100 ml @ 200 mls/hr Q24H IVPB Last administered on 07/10/16 12:20; Admin Dose 200 MLS/HR; Start 07/07/16 at 13:00 Docusate Sodium (Colace) 100 mg BID PO Last administered on 07/11/16 09:13; Admin Dose 100 MG; Start 07/08/16 at 10:30 EMIGDIO OLIVO NP Jul 11, 2016 12:09
[2016-07-11] MEDS: ERTAPENEM SODIUM 1 GM in SOD CHLORIDE 0.9% 100 ML IVPB SCH (12:20)
[2016-07-11] MEDS ORDERED: HYDR-3498 PO (13:15)
--- NOTE | 2016-07-16 22:40 | DS ---
DATE OF ADMISSION: 07/05/2016 DATE OF DISCHARGE: 07/11/2016 FINAL DIAGNOSES: 1. Perirectal abscess with surrounding cellulitis, status post incision and drainage. 2. Possible sepsis secondary to abscess with leukocytosis, tachycardia, and fever on admission, res olved. BRIEF HISTORY: The patient is a 41-year-old gentleman with previous hemorrhoidectomy x2 more than a year ago. The patient developed perirectal abscess and was seen in the emergency room a month ago. The patient had an I and D done in the emergency room and was discharged on oral antibiotics. The patient stated that he finished the treatment with antibiotics. However, patient developed rectal swelling and severe pain. The patient had fevers and chills and presented to the emergency room. T he patient underwent a CT of abdomen and pelvis with contrast in the emergency room, which revealed: 1. Acute inflammatory collection/abscess within the left ischiorectal adjacent to anus measuring 4. 6, 4.4, and 2.9 cm, with surrounding cellulitis of the left gluteal cleft and likely drainage to the skin surface, but no extension to the levator ani muscles into the pelvis and perirectal region. 2. Hepatic steatosis. 3. Mild atherosclerotic calcification of the right common iliac artery. The patient's white blood cell count was elevated at 16,900 and patient was found to have fever of 1 03.2. The patient was started on vancomycin, Zosyn and admitted for further evaluation and manageme nt. HOSPITAL COURSE: The patient was evaluated by Dr. Lars Willett in general surgery consultation. T he patient underwent I and D of the abscess by Dr. Willett on 07/05/2016. The patient was also evalua nely by Dr. Lewis in infectious disease consultation and patient was continued on vancomycin and ert apenem. The patient's intraoperative culture of the abscess came back with E. coli ESBL and gamma h emolytic strep and the aerobic culture was positive for Bacteroides fragilis. The patient completed treatment with ertapenem and vancomycin. The patient was also given morphine for pain. The patien t's condition improved and patient was discharged home. CONDITION ON DISCHARGE: Hemodynamically stable. ACTIVITY: As patient tolerates. 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 May return to work in 1 week. DISCHARGE MEDICATIONS: The patient is given prescriptions for: 1. [place] p.r.n. for pain. 2. Continue on multivitamins. DISCHARGE INSTRUCTIONS: The patient is instructed to follow up with Dr. Willett in postoperative appo intment in 1 to 2 weeks. Interdisciplinary plan of care was established for this patient. Plan of care was discussed with Dr Nikhil Sawyer. Dictated By: FERNY THOMPSON [employer] for ARELIS SAWYER MD SR/NTS Conf#: [id number] DID#: [id number] CC: ARELIS SAWYER MD;*EndCC*
== END 2016-07-11 16:00 | disposition home or self-care (01) | DRG 854 ==
LOC: FTE 19:35 → MS2 07-05 03:32
PROVIDERS: ADMIT Internal Medicine; ATTEND Internal Medicine
PROC: 0D9P0ZZ Drainage of Rectum, Open Approach (ICD-10-PCS; principal; 2016-07-05 18:00)
DX: A41.9 Sepsis, unspecified organism (principal); K61.3 Ischiorectal abscess; I10 Essential (primary) hypertension; B96.20 Unspecified Escherichia coli [E. coli] as the cause of diseases classified elsewhere; B96.6 Bacteroides fragilis [B. fragilis] as the cause of diseases classified elsewhere
CPT/HCPCS: 36415; 74177; 80048; 80053; 80202; 83605; 83690; 85025; 85610; 87040; 87070; 87075; 87086; 87102; 87116; 96360; 96361; J0131; J0330; J1335; J1650; J1885; J2270; J2405; J2543; J3010; J3370; J7030; J7040; J7050; Q9967

== ENCOUNTER 2017-01-03 17:19 | Inpatient (IN) | payer BC ==
[~2017-01-03] VITALS: Ht 177.8 cm; Wt 96.0 kg
[~2017-01-03 17:19] MED LIST changes: -BACTDS PO; -CEPH-443 PO; +HYDR-3498 PO; -[UNRECOGNIZED DRUG - OTHER]
[2017-01-03] MEDS ORDERED: morphine 2 MG INJ IV STA (19:10)
[2017-01-03] MEDS ORDERED: ACETAMINOPHEN 500 MG TAB PO STA (19:10)
[2017-01-03] MEDS ORDERED: SODIUM CHLORIDE 0.9% 1L BAG IV* STA (19:10)
[2017-01-03] MEDS ORDERED: PIPER-TAZO 3.375 GM IV (PMX) 100 ML IVPB STA (19:10)
[2017-01-03] MEDS ORDERED: ONDANSETRON 4 MG INJ IV STA (19:10)
[2017-01-03] MEDS ORDERED: KETOROLAC 30 MG INJ IV STA (19:10)
--- NOTE | 2017-01-03 19:38 | ERD ---
ER Documentation Chief Complaint Date/Time DATE: 01/03/17 TIME: 19:35 Chief Complaint Abscess on left buttocks HPI 41 year old male presents here in emergency department for complaints of left maki-rectal perianal redness and swelling that started 3 days ago, patient describes the pain as throbbing pain, 8/10 scale, is worse upon touching the area. Patient has been having fever. Patient was seen here in emergency department for the same problem 6 months ago, had a surgery done here. Patient has history of cellulitis. Patient did not take any medications to help with symptoms. ROS All systems reviewed and are negative except as per history of present illness. Medications Home Meds Active Scripts Hydrocodone Bit-Acetaminophen (Hydrocodone Bit-APAP) 5-325MG Tablet, 1 TAB PO Q6H Y for Mild-Moderate Pain, #30 TAB Prov:FERNY THOMPSON 07/11/16 Reported Medications Folic Acid/Mv,Fe,Other Min (Centrum Complete Multivit Tab) 1 Each Tablet, 1 EACH PO 08/03/14 Allergies Allergies: Coded Allergies: No Known Allergies (Verified Allergy, Unknown, 05/30/16) PMhx/Soc History of Surgery: Yes (HEMORRHOIDECTOMY 2014) Anesthesia Reaction: No Hx Neurological Disorder: No Hx Respiratory Disorders: No Hx Cardiac Disorders: Yes (HTN) Hx Psychiatric Problems: No Hx Miscellaneous Medical Probl: No Hx Alcohol Use: No Hx Substance Use: No Hx Tobacco Use: Yes Smoking Status: Current every day smoker FmHx Family History: No coronary disease, No diabetes, No other Physical Exam Vitals Vital Signs Date Time Temp Pulse Resp B/P Pulse Ox O2 Delivery O2 Flow Rate FiO2 01/03/17 20:53 99.0 103 19 106/60 97 Room Air 01/03/17 19:40 103.0 124 22 131/97 95 Room Air 01/03/17 17:24 102.4 124 20 130/92 98 Physical Exam GENERAL: The patient is well developed and appropriate for usual state of health, in no apparent distress. CHEST: Clear to auscultation bilaterally. There are no rales, wheezes or rhonchi. HEART: Regular rate and rhythm. No murmurs, clicks, rubs or gallops. No S3 or S4. ABDOMEN: Soft, nontender and nondistended. Good bowel sounds. No rebound or guarding. No gross peritonitis. No gross organomegaly or masses. No Orozco sign or McBurney point tenderness. BACK: No midline or flank tenderness. EXTREMITIES: Equal pulses bilaterally. There is no peripheral clubbing, cyanosis or edema. No focal swelling or erythema. Full range of motion. Grossly neurovascularly intact. NEURO: Alert and oriented. Cranial nerves 2-12 intact. Motor strength in all 4 extremities with 5/5 strength. Sensation grossly intact. Normal speech and gait. SKIN: Noted erythema induration of the left buttock, 8 x 10 cm in size, no fluctuance noted, tender on palpation.There is no apparent ecchymoses or petechia. The skin is warm and dry. HEMATOLOGIC AND LYMPHATIC: There is no evidence of excessive bruising or lymphedema. No gross cervical, axillary, or inguinal lymphadenopathy. Result Diagram: 01/03/17192901/03/171929 Results 24 hrs Laboratory Tests Test 01/03/17 19:30 White Blood Count 20.310^3/ul Red Blood Count 5.3210^6/ul Hemoglobin 14.5g/dl Hematocrit 42.8% Mean Corpuscular Volume 80.5fl Mean Corpuscular Hemoglobin 27.3pg Mean Corpuscular Hemoglobin Concent 33.9g/dl Red Cell Distribution Width 13.0% Platelet Count 95561^3/UL Mean Platelet Volume 11.5fl Neutrophils % 73.7% Lymphocytes % 15.5% Monocytes % 9.9% Eosinophils % 0.0% Basophils % 0.4% Nucleated Red Blood Cells % 0.0/100WBC Neutrophils # (Manual) 14.910^3/ul Lymphocytes # 3.110^3/ul Monocytes # 2.010^3/ul Eosinophils # 0.010^3/ul Basophils # 0.110^3/ul Nucleated Red Blood Cells # 0.010^3/ul Urine Color STRAW Urine Clarity CLEAR Urine pH 7.0 Urine Specific [place] 1.005 Urine Ketones NEGATIVEmg/dL Urine Nitrite NEGATIVEmg/dL Urine Bilirubin NEGATIVEmg/dL Urine Urobilinogen NEGATIVEmg/dL Urine Leukocyte Esterase NEGATIVELeu/ul Urine Microscopic RBC 4/HPF Urine Microscopic WBC 0/HPF Urine Bacteria FEW/HPF Urine Hemoglobin 2+mg/dL Urine Glucose NEGATIVEmg/dL Urine Total Protein NEGATIVEmg/dl Sodium Level 139mmol/L Potassium Level 3.8mmol/L Chloride Level 98mmol/L Carbon Dioxide Level 23mmol/L Anion Gap 22 Blood Urea Nitrogen 13mg/dl Creatinine 1.31mg/dl Glucose Level 135mg/dl Lactic Acid Level 1.2mmol/L Calcium Level 9.4mg/dl Total Bilirubin 1.4mg/dl Direct Bilirubin 0.00mg/dl Indirect Bilirubin 1.4mg/dl Aspartate Amino Transf (AST/SGOT) 20IU/L Alanine Aminotransferase (ALT/SGPT) 33IU/L Alkaline Phosphatase 72IU/L Total Protein 8.4g/dl Albumin 4.4g/dl Globulin 4.00g/dl Albumin/Globulin Ratio 1.10 Lipase 50U/L Current Medications Medications (Trade) Dose Ordered Sig/Ronal Route PRN Reason Start Time Stop Time Status Last Admin Dose Admin Morphine Sulfate (morphine) 2 mg ONCE STAT IV 01/03/17 19:10 01/03/17 19:15 DC 01/03/17 19:45 Ondansetron HCl (Zofran Inj) 4 mg ONCE STAT IV 01/03/17 19:10 01/03/17 19:15 DC 01/03/17 19:45 Ketorolac Tromethamine (Toradol) 30 mg ONCE STAT IV 01/03/17 19:10 01/03/17 19:15 DC 01/03/17 19:45 Acetaminophen (Tylenol Tab) 1,000 mg ONCE STAT PO 01/03/17 19:10 01/03/17 19:15 DC 01/03/17 19:45 Sodium Chloride 3000 ml 3,000 ml BOLUS OVER 2 HOURS STAT IV* 01/03/17 19:10 01/03/17 19:15 DC 01/03/17 19:46 Piperacillin Sod/ Tazobactam Sod (Zosyn 3.375gm/ 100 ml (Pmx)) 100 ml @ 100 mls/hr ONCE STAT IVPB 01/03/17 19:10 01/03/17 20:09 DC 01/03/17 20:01 IV Flush 10 ml 10 ml STK-MED ONCE .ROUTE 01/03/17 20:28 01/03/17 20:29 DC 01/03/17 20:37 Sodium Chloride (NS) 100 ml @ ud STK-MED ONCE .ROUTE 01/03/17 20:28 01/03/17 20:29 DC 01/03/17 20:38 Iohexol (Omnipaque 300mg/ ml) 150 ml STK-MED ONCE .ROUTE 01/03/17 20:28 01/03/17 20:29 DC Iodixanol (Visipaque Locm) 100 ml STK-MED ONCE .ROUTE 01/03/17 20:28 01/03/17 20:29 DC 01/03/17 20:39 Patient was given medication for pain here in emergency department, after treatment, patient verbalized feeling much better. Patient's pain is improved.Patient was given medicines for fever control here in the emergency department. After treatment, patient temperature improved and lower. Patient appears well and is hemodynamically stable. Patient was given Zofran here in the emergency department. After treatment, patient was able to tolerate po fluids here in the emergency department without any vomiting. There is no signs and symptoms of dehydration. Normal saline IV bolus was given here in emergency department for rehydration, patient tolerated IV fluids.Zosyn was given here in emergency for initial treatment of cellulitis. PROCEDURE: CT Abdomen and Pelvis with Contrast CLINICAL INDICATION: Perirectal cellulitis, rule out fistula TECHNIQUE: Transaxial images were obtained through the abdomen and pelvis on a multi-slice scanner following the intravenous administration of 100 cc of Visipaque 320 contrast. No oral contrast had previously been given. Sagittal and coronal re-formations were subsequently reconstructed. One or more of the following dose reduction techniques were used: - Automated exposure control. - Adjustment of the mA and/or kV according to patient size. - Use of iterative reconstruction technique. Radiation dose: CTDIvol = 17.82 mGy; DLP = 1074.75 mGy-cm. COMPARISON: 07/04/2016 FINDINGS: Lung bases: The visualized lung bases appear unremarkable. Liver: The liver is upper normal in size and appears diffusely fatty infiltrated. An 8 mm in maximal diameter calcification is seen at the anterior capsule of the right lobe at the dome of the liver. No other focal lesion is evident. Gallbladder: The wall is not thickened. No radiopaque stones are identified. Bile ducts: The intra and extrahepatic bile ducts are normal in caliber. Pancreas: Appears normal with no mass or inflammation evident. Spleen: Normal in size with no focal lesion. Adrenals: Normal with no mass identified. Kidneys, ureters and bladder: The kidneys enhance normally and are normal in size and there is no mass, pathological calcification, or hydronephrosis evident. There is no perinephric stranding. The ureters are normal in caliber and no ureteroliths are identified. The bladder appears unremarkable. Reproductive organs: Unremarkable. Stomach, bowel, and mesentery: The stomach appears unremarkable. The small bowel pattern appears unremarkable. Scattered diverticuli are seen within the sigmoid colon without evidence of diverticulitis. There is no evidence of bowel obstruction. Appendix: A normal vermiform appendix is evident. Peritoneum: No free intraperitoneal fluid or air is identified. Aorta: Normal in caliber with no aneurysmal dilatation. IVC: Unremarkable. Lymph nodes: No pathologically enlarged nodes are identified. Osseous structures: The osseous elements appear intact. Soft tissues: There is an abscess in the posterior perineum to the left of midline measuring 5.5 x 4.2 x 4.0 cm with an air-fluid level and stranding within the surrounding fat. This appears to track posteriorly to the skin surface at the medial left buttock. There is no fistula tract evident to the rectum. There is diastases recti. IMPRESSION: 1. There is been an interval increase in size to the abscess seen within the posterior perineum to the left of midline with considerable inflammatory stranding again seen in the adjacent fat. This now measures 5.5 by 4.2 x 4.0 cm in diameter. This appears to track posteriorly to the skin surface of the medial left buttock compatible with a cutaneous fistula. Again no distinct fistula tract to the rectum is identified. 2. Scattered diverticuli are again seen in the sigmoid colon, but there is no evidence of bowel obstruction or inflammation with a normal-appearing vermiform appendix. 3. The liver remains upper normal in size and appears diffusely fatty infiltrated with a the calcifications seen within the anterior dome of the right lobe suspicious for a granuloma, unchanged. 4. Diastases recti, unchanged. Physician Jude Date Time Electronically viewed and signed by Physician Jude on 01/03/2017 21:22 RH/ CC: YADIRA MORAN PRACTICAL NURSE Procedures/MDM Medical decision making: Patient has a perirectal perineal abscess noted in the CT scan with cutaneous tracking, patient has elevated white count at 20,000, was febrile and tachycardic on arrival here in emergency department, patient criteria meets sepsis criteria, patient was given IV fluids, 30 mg/kg normal saline, started with IV Zosyn, blood cultures were drawn prior to giving antibiotics. I discussed this case with my attending physician, Dr. Saunders, will facilitate patient's admission to the hospital. Departure Diagnosis: Primary Impression: Abscess, perineum Additional Impression: Sepsis Sepsis type: methicillin susceptible Staphylococcus aureus Qualified Code: A41.01 - Sepsis due to methicillin susceptible Staphylococcus aureus Condition: YADIRA Fuller NP Jan 03, 2017 19:38
[2017-01-03 19:52] LABS: ABNORMAL IP MESSAGE 1; BASOPHIL # 0.1 10^3/ul (0.0-0.1); BASOPHILS % 0.4 % (0.0-2.0); HEMATOCRIT 42.8 % (42.0-52.0); HEMOGLOBIN 14.5 g/dl (14.0-18.0); LYMPHOCYTES # 3.1 10^3/ul (0.8-2.9); LYMPHOCYTES % 15.5 % (15.0-51.0); MEAN CORPUSCULAR HEMOGLOBIN 27.3 pg (29.0-33.0); MEAN CORPUSCULAR HGB CONC 33.9 g/dl (32.0-37.0); MEAN CORPUSCULAR VOLUME 80.5 fl (82.0-101.0); MEAN PLATELET VOLUME 11.5 fl (7.4-10.4); MONOCYTES % 9.9 % (0.0-11.0); NEUTROPHILS % 73.7 % (39.0-77.0); PLATELET COUNT 233 10^3/UL (140-415); POSITIVE DIFF @See below; RED BLOOD COUNT 5.32 10^6/ul (4.70-6.10); WHITE BLOOD COUNT 20.3 10^3/ul (4.8-10.8)
[2017-01-03 19:58] LABS: ADD UMIC YES; UR ASCORBIC ACID NEGATIVE (NEGATIVE); UR BACTERIA FEW /HPF (NONE SEEN); UR BILIRUBIN (Dip) NEGATIVE (NEGATIVE); UR BLOOD (Dip) 2+ mg/dL (NEGATIVE); UR CLARITY CLEAR (CLEAR); UR COLOR STRAW (YELLOW); UR GLUCOSE (Dip) NEGATIVE (NEGATIVE); UR KETONES (Dip) NEGATIVE (NEGATIVE); UR LEUKOCYTE ESTERASE (Dip) NEGATIVE Leu/ul (NEGATIVE); UR NITRITE (Dip) NEGATIVE (NEGATIVE); UR RBC 4 /HPF (0-5); UR SPECIFIC GRAVITY (Dip) 1.005 (1.003-1.030); UR TOTAL PROTEIN (Dip) NEGATIVE (NEGATIVE); UR UROBILINOGEN (Dip) NEGATIVE (NEGATIVE)
[2017-01-03 20:05] LABS: ALBUMIN 4.4 g/dl (3.3-4.9); ALBUMIN/GLOBULIN RATIO 1.1; BILIRUBIN,INDIRECT 1.4 mg/dl (0-1.1); BILIRUBIN,TOTAL 1.4 mg/dl (0.2-1.3); CALCIUM 9.4 mg/dl (8.4-10.2); CREATININE 1.31 mg/dl (0.61-1.24); POTASSIUM 3.8 mmol/L (3.5-5.1); TOTAL PROTEIN 8.4 g/dl (6.1-8.1)
[2017-01-03] MEDS ORDERED: IOHEXOL 300MG/ML 150 ML BTL ONE (20:28)
[2017-01-03] MEDS ORDERED: SOD CHLORIDE 0.9% 100 ML ONE (20:28)
[2017-01-03] MEDS ORDERED: IODIXANOL LOCM 100 ML BTL ONE (20:28)
--- NOTE | 2017-01-03 21:22 | RADRPT ---
PROCEDURE: CT Abdomen and Pelvis with Contrast CLINICAL INDICATION: Perirectal cellulitis, rule out fistula TECHNIQUE: Transaxial images were obtained through the abdomen and pelvis on a multi-slice scanner following the intravenous administration of 100 cc of Visipaque 320 contrast. No oral contrast had previously been given. Sagittal and coronal re-formations were subsequently reconstructed. One or more of the following dose reduction techniques were used: - Automated exposure control. - Adjustment of the mA and/or kV according to patient size. - Use of iterative reconstruction technique. Radiation dose: CTDIvol = 17.82 mGy; DLP = 1074.75 mGy-cm. COMPARISON: 07/04/2016 FINDINGS: Lung bases: The visualized lung bases appear unremarkable. Liver: The liver is upper normal in size and appears diffusely fatty infiltrated. An 8 mm in maximal diameter calcification is seen at the anterior capsule of the right lobe at the dome of the liver. No other focal lesion is evident. Gallbladder: The wall is not thickened. No radiopaque stones are identified. Bile ducts: The intra and extrahepatic bile ducts are normal in caliber. Pancreas: Appears normal with no mass or inflammation evident. Spleen: Normal in size with no focal lesion. Adrenals: Normal with no mass identified. Kidneys, ureters and bladder: The kidneys enhance normally and are normal in size and there is no ma ss, pathological calcification, or hydronephrosis evident. There is no perinephric stranding. The ur eters are normal in caliber and no ureteroliths are identified. The bladder appears unremarkable. Reproductive organs: Unremarkable. Stomach, bowel, and mesentery: The stomach appears unremarkable. The small bowel pattern appears un remarkable. Scattered diverticuli are seen within the sigmoid colon without evidence of diverticuli tis. There is no evidence of bowel obstruction. Appendix: A normal vermiform appendix is evident. Peritoneum: No free intraperitoneal fluid or air is identified. Aorta: Normal in caliber with no aneurysmal dilatation. IVC: Unremarkable. Lymph nodes: No pathologically enlarged nodes are identified. Osseous structures: The osseous elements appear intact. Soft tissues: There is an abscess in the posterior perineum to the left of midline measuring 5.5 x 4.2 x 4.0 cm with an air-fluid level and stranding within the surrounding fat. This appears to trac k posteriorly to the skin surface at the medial left buttock. There is no fistula tract evident to the rectum. There is diastases recti. IMPRESSION: 1. There is been an interval increase in size to the abscess seen within the posterior perineum to the left of midline with considerable inflammatory stranding again seen in the adjacent fat. This n ow measures 5.5 by 4.2 x 4.0 cm in diameter. This appears to track posteriorly to the skin surface o f the medial left buttock compatible with a cutaneous fistula. Again no distinct fistula tract to t he rectum is identified. 2. Scattered diverticuli are again seen in the sigmoid colon, but there is no evidence of bowel obs truction or inflammation with a normal-appearing vermiform appendix. 3. The liver remains upper normal in size and appears diffusely fatty infiltrated with a the calcifi cations seen within the anterior dome of the right lobe suspicious for a granuloma, unchanged. 4. Diastases recti, unchanged. Physician Jude Date Time Electronically viewed and signed by Physician Jude on 01/03/2017 21:22 /
--- NOTE | 2017-01-03 22:57 | EN ---
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 This is a 41-year- old male who presents to the emergency room for evaluation of pain in the gluteal region. Upon evaluation this patient was febrile tachycardic. The patient does have a previous history of perineal abscess. The patient did undergo a septic workup including a 30 cc/kg IV normal saline bolus. His mean arterial pressures greater than 65. This patient also had a CAT scan which demonstrated interval increase in the size of his abscess from July 2016. There is now a tract posteriorly to the skin surface compatible with a cutaneous fistula. The patient was found to have a white blood cell count of 20 ,000. The patient was started on Zosyn in the emergency room. I have contacted his primary care physician Dr. fareed siu with her admission at this time. I have also contacted this patient's general surgeon, Dr. Willett is okay with the plan of care for admission at this time is to see the patient. This patient will be placed on the [facility] floor. He is aware of his disposition is okay with admission at this time. Need for vasopressors as this patient is hemodynamically stable Critical Care: Excluding all billable procedures Time: 38 minutes Treatments/Evaluations: Close monitoring and treatment of unstable vital signs, cardiorespiratory, and neurologic status, while maintaining tight balance of fluid, respiratory, and cardiac interventions, multiple bedside evaluations, multiple consultations, lab value interpretation. SIRI JAMES DO Jan 03, 2017 22:57
[2017-01-03] MEDS ORDERED: SOD CHLORIDE 0.9% 1,000 ML IV SCH (22:58)
[2017-01-03] MEDS ORDERED: ACETAMINOPHEN 325 MG TAB PO PRN (23:00)
[2017-01-03] MEDS ORDERED: ONDANSETRON 4 MG INJ IV PRN (23:00)
[2017-01-03 23:15] VITALS: TEMP 97.5
[2017-01-04] VITALS (20 sets, daily range): BP systolic 102–170; BP diastolic 57–86; PULSE 102–112; RESP 16–21; Ht 177.8 cm; Wt 96.0 kg
[2017-01-04] MEDS ORDERED: ONDANSETRON 4 MG INJ IV PRN ×3 (01:30→22:30)
[2017-01-04] MEDS ORDERED: HYDROmorphONE 1 MG/ML SYG IV PRN (01:30)
[2017-01-04] MEDS: D5W-0.45 NACL + KCL 20 MEQ 1,000 ML IV SCH ×3 (02:06→21:30)
[2017-01-04] MEDS: ACETAMINOPHEN 325 MG TAB PO PRN ×3 (02:06→16:53)
[2017-01-04] MEDS: PIPER-TAZO 3.375 GM IV (PMX) 100 ML IVPB SCH ×3 (06:22→16:57)
[2017-01-04] MEDS: HYDROmorphONE 1 MG/ML SYG IV PRN ×3 (06:29→16:54)
[2017-01-04 06:32] LABS: BASOPHILS % 0.2 % (0.0-2.0); HEMATOCRIT 38.4 % (42.0-52.0); HEMOGLOBIN 12.6 g/dl (14.0-18.0); LYMPHOCYTES # 1.7 10^3/ul (0.8-2.9); LYMPHOCYTES % 10.2 % (15.0-51.0); MEAN CORPUSCULAR HEMOGLOBIN 26.7 pg (29.0-33.0); MEAN CORPUSCULAR HGB CONC 32.8 g/dl (32.0-37.0); MEAN CORPUSCULAR VOLUME 81.4 fl (82.0-101.0); MEAN PLATELET VOLUME 11.9 fl (7.4-10.4); MONOCYTE # 1.5 10^3/ul (0.3-0.9); MONOCYTES % 8.8 % (0.0-11.0); NEUTROPHILS % 80.3 % (39.0-77.0); PLATELET COUNT 197 10^3/UL (140-415); RED BLOOD COUNT 4.72 10^6/ul (4.70-6.10); RED CELL DISTRIBUTION WIDTH 13.4 % (11.5-14.5); WHITE BLOOD COUNT 16.8 10^3/ul (4.8-10.8)
[2017-01-04 06:47] LABS: CALCIUM 8.2 mg/dl (8.4-10.2); CREATININE 1.01 mg/dl (0.61-1.24); POTASSIUM 3.7 mmol/L (3.5-5.1)
--- NOTE | 2017-01-04 09:48 | CONS ---
Date/Time of Note Date/Time of Note DATE: 01/04/17 TIME: 09:44 Assessment/Plan Assessment/Plan Chief Complaint/Hosp Course 41-year-old male with perineal abscess * Will schedule for incision and drainage Problems: Consultation Date/Type/Reason Admit Date/Time Jan 03, 2017 at 22:59 Date of Consultation: Jan 04, 2017 Type of Consultation: GENERAL SURGERY Reason for Consultation Perineal abscess Hx of Present Illness Patient is a 41-year-old male with a history of incision and drainage of a perirectal and perineal abscess 6 months ago who presents with recurrence. This most recent episode started 3 days ago. It has been associated with fever. He denies drainage. A 14 point review of systems was conducted and was negative except for that which is mentioned in HPI Past Medical History Medical History: no pertinent history Past Surgical History As in HPI Social History Smoking Status: Former smoker Exam/Review of Systems Vital Signs Vitals Vital Signs Date Time Temp Pulse Resp B/P Pulse Ox O2 Delivery O2 Flow Rate FiO2 01/04/17 09:20 100.6 01/04/17 07:25 123 20 113/66 94 01/03/17 23:15 Room Air Intake and Output 01/03/17 01/03/17 01/04/17 15:00 23:00 07:00 Intake Total 100 ml 340 ml Balance 100 ml 340 ml Exam GENERAL: Awake, alert, oriented x 3. No acute distress. SKIN: No jaundice. HEENT: PERRLA, EOMI, No Scleral Icterus NECK: Supple without JVD CARDIOVASCULAR: S1S2, regular rate and rhythm. No murmurs appreciated. RESPIRATORY: Clear to auscultation bilaterally. ABDOMEN: Soft, bowel sounds present, nondistended, nontender to palpation. BUTTOCKS: Induration and cellulitis of left medial buttocks extending down to the perianal region. No drainage. EXTREMITIES: Free range of motion x 4. No cyanosis, edema, or clubbing. NEUROLOGIC: Cranial nerves II-XII are intact. Sensation is intact grossly. Results Result Diagram: 01/04/17 0538 01/04/17 0538 Results 24 hrs Laboratory Tests Test 01/03/17 19:30 01/03/17 21:15 01/03/17 23:20 01/04/17 05:38 White Blood Count 20.3 #H 16.8 H Red Blood Count 5.32 4.72 Hemoglobin 14.5 12.6 L Hematocrit 42.8 38.4 L Mean Corpuscular Volume 80.5 L 81.4 L Mean Corpuscular Hemoglobin 27.3 L 26.7 L Mean Corpuscular Hemoglobin Concent 33.9 32.8 Red Cell Distribution Width 13.0 13.4 Platelet Count 233 # 197 Mean Platelet Volume 11.5 H 11.9 H Neutrophils % 73.7 80.3 H Lymphocytes % 15.5 10.2 L Monocytes % 9.9 8.8 Eosinophils % 0.0 0.0 Basophils % 0.4 0.2 Nucleated Red Blood Cells % 0.0 0.0 Neutrophils # (Manual) 14.9 H 13.5 H Lymphocytes # 3.1 H 1.7 Monocytes # 2.0 H 1.5 H Eosinophils # 0.0 0.0 Basophils # 0.1 0.0 Nucleated Red Blood Cells # 0.0 0.0 Urine Color STRAW Urine Clarity CLEAR Urine pH 7.0 Urine Specific [place] 1.005 Urine Ketones NEGATIVE Urine Nitrite NEGATIVE Urine Bilirubin NEGATIVE Urine Urobilinogen NEGATIVE Urine Leukocyte Esterase NEGATIVE Urine Microscopic RBC 4 Urine Microscopic WBC 0 Urine Bacteria FEW A Urine Hemoglobin 2+ H Urine Glucose NEGATIVE Urine Total Protein NEGATIVE Sodium Level 139 140 Potassium Level 3.8 3.7 Chloride Level 98 104 Carbon Dioxide Level 23 24 Anion Gap 22 H 16 Blood Urea Nitrogen 13 10 Creatinine 1.31 H 1.01 Glucose Level 135 113 Lactic Acid Level 1.2 0.8 0.8 Calcium Level 9.4 8.2 L Total Bilirubin 1.4 H Direct Bilirubin 0.00 Indirect Bilirubin 1.4 H Aspartate Amino Transf (AST/SGOT) 20 Alanine Aminotransferase (ALT/SGPT) 33 Alkaline Phosphatase 72 Total Protein 8.4 H Albumin 4.4 Globulin 4.00 H Albumin/Globulin Ratio 1.10 Lipase 50 Medications Medications Current Medications Sodium Chloride 1,000 ml @ 80 mls/hr [id number] IV ; Start 01/03/17 at 22:58; Stop 01/04/17 at 11:27 Piperacillin Sod/ Tazobactam Sod (Zosyn 3.375gm/ 100 ml (Pmx)) 100 ml @ 200 mls /hr Q6 IVPB Last administered on 01/04/17t 06:22; Admin Dose 200 MLS/HR; Start 01/04/17 at 06:00 Ondansetron HCl (Zofran Inj) 4 mg Q6H PRN IV NAUSEA AND/OR VOMITING; Start at 01:30 Acetaminophen 650 mg 650 mg Q6H PRN PO PAIN AND OR ELEVATED TEMP Last administered on 01/04/17 07:53; Admin Dose 650 MG; Start 01/04/17 at 01:30 Potassium Chloride/Dextrose/ Sod Cl (D5-1/2ns + KCl 20 Meq) 1,000 ml @ 100 mls/ hr Q10H IV Last administered on 01/04/17 02:06; Admin Dose 100 MLS/HR; Start 01/04/17 at 01:30 Hydromorphone HCl (Dilaudid) 1 mg Q3H PRN IV PAIN Last administered on 06:29; Admin Dose 1 MG; Start 01/04/17 at 01:30 DELFINA MENDOZA MD Jan 04, 2017 09:48
--- NOTE | 2017-01-04 10:08 | RADRPT ---
PROCEDURE: XR Chest. CLINICAL INDICATION: Sepsis TECHNIQUE: AP Portable chest. COMPARISON: 05/28/2016 FINDINGS: The cardiomediastinal silhouette is normal. The aorta is normal. No focal consolidation, pleural eff usion or pneumothorax is seen. The osseous structures are intact. IMPRESSION: No radiographic evidence of acute cardiopulmonary disease. Physician Michael Date Time Electronically viewed and signed by Rustam Reeder Physician on 01/04/2017 10:08 CS/
--- NOTE | 2017-01-04 11:40 | HP ---
Date/Time of Note Date/Time of Note DATE: 01/04/17 TIME: 11:11 Assessment/Plan VTE Prophylaxis VTE Prophylaxis Intervention: other Lines/Catheters IV Catheter Type (from Nrsg): Peripheral IV Assessment/Plan Assessment/Plan -Abscess, perineum - Per surgery- dR. Willett- marco for I& D PERINEUM ABCESS - npo - dILAUDID FOR PAIN -Sepsis - ID Consult- Dr Mendiola notified - sp Hemorrhoidectomy - Current smoker - SMOKING CESSATION Luis guerrier/ staff/patient HPI/ROS Admit Date/Time Admit Date/Time Jan 03, 2017 at 22:59 Hx of Present Illness HPI 41 year old male presents here in emergency department for complaints of left maki-rectal perianal redness and swelling that started 3 days ago, patient describes the pain as throbbing pain, 8/10 scale, is worse upon touching the area. Patient has been having fever. Patient was seen here in emergency department for the same problem 6 months ago, had a surgery done here. Patient has history of cellulitis. Patient did not take any medications to help with symptoms. ROS All systems reviewed and are negative except as per history of present illness. ROS Allergies Allergies: Coded Allergies: No Known Allergies (Verified Allergy, Unknown, 05/30/16) Respiratory: no complaints Cardiovascular: no complaints Gastrointestinal: no complaints Genitourinary: no complaints Musculoskeletal: no complaints Skin: other (abcsess left buttock) PMH/Family/Social Past Medical History PMhx/Soc History of Surgery: Yes (HEMORRHOIDECTOMY 2014) Anesthesia Reaction: No Hx Neurological Disorder: No Hx Respiratory Disorders: No Hx Cardiac Disorders: Yes (HTN) Hx Psychiatric Problems: No Hx Miscellaneous Medical Probl: No Hx Alcohol Use: No Hx Substance Use: No Hx Tobacco Use: Yes Smoking Status: Current every day smoker FmHx Family History: No coronary disease, No diabetes, No other Medical History: no pertinent history Social History Smoking Status: Former smoker Exam/Review of Systems Vital Signs Vitals Vital Signs Date Time Temp Pulse Resp B/P Pulse Ox O2 Delivery O2 Flow Rate FiO2 01/04/17 09:20 100.6 01/04/17 07:25 123 20 113/66 94 01/03/17 23:15 Room Air Intake and Output 01/03/17 01/03/17 01/04/17 15:00 23:00 07:00 Intake Total 100 ml 340 ml Balance 100 ml 340 ml Exam Constitutional: alert, oriented, well developed Respiratory: clear to auscultation, normal air movement Cardiovascular: nl pulses, regular rate and rhythm Gastrointestinal: non-tender, soft Musculoskeletal: nl extremities to inspection Extremities: normal pulses Neurological: nl mental status, nl speech Skin: other (abcess left buttock- erythema , induration of the left buttock, 8 x 10 cm in size, no fluctuance noted, tender on palpation.There is no apparent ecchymoses or petechia. The skin is warm and dry.) Labs Result Diagram: 01/04/17 0538 01/04/17 0538 Medications Medications Current Medications Sodium Chloride 1,000 ml @ 80 mls/hr [id number] IV ; Start 01/03/17 at 22:58; Stop 01/04/17 at 11:27 Piperacillin Sod/ Tazobactam Sod (Zosyn 3.375gm/ 100 ml (Pmx)) 100 ml @ 200 mls /hr Q6 IVPB Last administered on 01/04/17 06:22; Admin Dose 200 MLS/HR; Start 01/04/17 at 06:00 Ondansetron HCl (Zofran Inj) 4 mg Q6H PRN IV NAUSEA AND/OR VOMITING; Start at 01:30 Acetaminophen 650 mg 650 mg Q6H PRN PO PAIN AND OR ELEVATED TEMP Last administered on 01/04/17 07:53; Admin Dose 650 MG; Start 01/04/17 at 01:30 Potassium Chloride/Dextrose/ Sod Cl (D5-1/2ns + KCl 20 Meq) 1,000 ml @ 100 mls/ hr Q10H IV Last administered on 01/04/17 02:06; Admin Dose 100 MLS/HR; Start 01/04/17 at 01:30 Hydromorphone HCl (Dilaudid) 1 mg Q3H PRN IV PAIN Last administered on 06:29; Admin Dose 1 MG; Start 01/04/17 at 01:30 Procedures Procedures PROCEDURE: CT Abdomen and Pelvis with Contrast CLINICAL INDICATION: Perirectal cellulitis, rule out fistula TECHNIQUE: Transaxial images were obtained through the abdomen and pelvis on a multi-slice scanner following the intravenous administration of 100 cc of Visipaque 320 contrast. No oral contrast had previously been given. Sagittal and coronal re-formations were subsequently reconstructed. One or more of the following dose reduction techniques were used: - Automated exposure control. - Adjustment of the mA and/or kV according to patient size. - Use of iterative reconstruction technique. Radiation dose: CTDIvol = 17.82 mGy; DLP = 1074.75 mGy-cm. COMPARISON: 07/04/2016 FINDINGS: Lung bases: The visualized lung bases appear unremarkable. Liver: The liver is upper normal in size and appears diffusely fatty infiltrated. An 8 mm in maximal diameter calcification is seen at the anterior capsule of the right lobe at the dome of the liver. No other focal lesion is evident. Gallbladder: The wall is not thickened. No radiopaque stones are identified. Bile ducts: The intra and extrahepatic bile ducts are normal in caliber. Pancreas: Appears normal with no mass or inflammation evident. Spleen: Normal in size with no focal lesion. Adrenals: Normal with no mass identified. Kidneys, ureters and bladder: The kidneys enhance normally and are normal in size and there is no mass, pathological calcification, or hydronephrosis evident. There is no perinephric stranding. The ureters are normal in caliber and no ureteroliths are identified. The bladder appears unremarkable. Reproductive organs: Unremarkable. Stomach, bowel, and mesentery: The stomach appears unremarkable. The small bowel pattern appears unremarkable. Scattered diverticuli are seen within the sigmoid colon without evidence of diverticulitis. There is no evidence of bowel obstruction. Appendix: A normal vermiform appendix is evident. Peritoneum: No free intraperitoneal fluid or air is identified. Aorta: Normal in caliber with no aneurysmal dilatation. IVC: Unremarkable. Lymph nodes: No pathologically enlarged nodes are identified. Osseous structures: The osseous elements appear intact. Soft tissues: There is an abscess in the posterior perineum to the left of midline measuring 5.5 x 4.2 x 4.0 cm with an air-fluid level and stranding within the surrounding fat. This appears to track posteriorly to the skin surface at the medial left buttock. There is no fistula tract evident to the rectum. There is diastases recti. IMPRESSION: 1. There is been an interval increase in size to the abscess seen within the posterior perineum to the left of midline with considerable inflammatory stranding again seen in the adjacent fat. This now measures 5.5 by 4.2 x 4.0 cm in diameter. This appears to track posteriorly to the skin surface of the medial left buttock compatible with a cutaneous fistula. Again no distinct fistula tract to the rectum is identified. 2. Scattered diverticuli are again seen in the sigmoid colon, but there is no evidence of bowel obstruction or inflammation with a normal-appearing vermiform appendix. 3. The liver remains upper normal in size and appears diffusely fatty infiltrated with a the calcifications seen within the anterior dome of the right lobe suspicious for a granuloma, unchanged. 4. Diastases recti, unchanged. FRITZ FUENTES Jan 04, 2017 11:22
[2017-01-04 12:00] LABS: INR 1.18; PROTIME 15.1 Sec (12.2-14.2); PT RATIO 1.2
--- NOTE | 2017-01-04 17:08 | RADRPT ---
Vent Rate: 102 bpm RR Interval: 0 msec AK Interval: 136 msec QRS Duration: 86 msec QT Interval: 330 msec QTC Interval: 430 msec P-R-T [place]: 51 - 72 - 39 degrees Sinus tachycardia Otherwise normal ECG Electronically Signed By: Lars Burton [id number]
[2017-01-04] MEDS ORDERED: SOD CHLORIDE 0.9% 1,000 ML IV ONE (18:30)
[2017-01-04] MEDS: SENNA TAB PO SCH (20:10)
[2017-01-04] MEDS ORDERED: BUPIVACAINE 0.25% (MPF) 30 ML INJ ONE (21:12)
[2017-01-04] MEDS ORDERED: METOCLOPRAMIDE 10 MG INJ ONE (21:13)
[2017-01-04] MEDS ORDERED: ONDANSETRON 4 MG INJ ONE (21:13)
[2017-01-04] MEDS ORDERED: PROPOFOL 20 ML ONE ×2 (21:13→21:46)
[2017-01-04] MEDS ORDERED: FENTAnyl 50 MCG/ML VIAL ONE (21:13)
[2017-01-04] MEDS ORDERED: ROCURONIUM 50 MG INJ ONE (21:13)
[2017-01-04] MEDS ORDERED: MIDAZOLAM 1 MG/ML 2 ML INJ ONE (21:16)
[2017-01-04] MEDS ORDERED: HYDROmorphONE (0.2 MG/ML) 10ML SYG IV PRN ×3 (22:00)
[2017-01-04] MEDS ORDERED: DIPHENHYDRAMINE 50 MG INJ IV PRN (22:00)
[2017-01-04] MEDS ORDERED: MEPERIDINE 25 MG INJ IV PRN (22:00)
[2017-01-04] MEDS ORDERED: GLYCOPYRROLATE 0.4 MG INJ ONE (22:16)
[2017-01-04] MEDS ORDERED: NEOSTIGMINE 3 MG/3 ML SYRINGE ONE (22:16)
--- NOTE | 2017-01-04 22:24 | OPR ---
Date/Time of Note Date/Time of Note DATE: 01/04/17 TIME: 22:18 Operative Report Procedure Date: Jan 04, 2017 Preoperative Diagnosis Perirectal Abscess Postoperative Diagnosis Perirectal Abscess Operation Performed Incision and Drainage of Perirectal Abscess Surgeon: DELFINA MENDOZA MD Anesthesia Type: general Anesthesiologist: LORNA CASTRO MD Estimated Blood Loss: minimal Transfusion Required: no Specimens Abscess cultures Grafts/Implants: none Complications: no Pt Condition Post Procedure: stable Disposition: PACU Indications Patient is a 41-year-old gentleman with a history of a prior perirectal abscess s/p incision and drainage 6 months ago who presented to the ER with a recurrent perirectal abscess accompanied with pain and fever. He was admitted, started on broad-spectrum intravenous antibiotics and pain control. He was scheduled for urgent incision and drainage. All risks and benefits of the procedure including but not limited to wound infection, excessive bleeding, prolonged wound healing course, possibility of fistula, etc. were all explained to the patient in full detail. He fully understood and wished to proceed with the procedure. Informed consent was obtained. Operative\Procedure Findings Perirectal abscess with a lot of pus Procedure Description The patient was brought to the operating room and placed supine on the operating table. Bilateral sequential compression devices were placed on both lower extremities. The patient had been maintained on broad-spectrum intravenous antibiotics while an inpatient on the floor. After the induction of smooth general endotracheal anesthesia the patient was positioned in the prone position. The buttocks was then taped apart, prepped and draped in standard surgical fashion. After performance of the surgical timeout an 18 gauge needle attached to a syringe was used to perform an aspiration in the area of the patient's prior incision. Pus was aspirated. A cruciate incision was then made over the area of the patient's prior incision using a 15 blade scalpel. Immediately copious amounts of pus started draining. Cultures were taken and sent for microbiological analysis. The pus was all suctioned out. Loculations were broken up using a Debby clamp and finger dissection. The abscess cavity was then irrigated with copious amounts of warm irrigation. Hemostasis was inspected for and noted to be adequate. The wound was then packed with 1 inch iodoform packing. Incision was cleaned and sterile dressings were applied. The patient was awoken from anesthesia and transported to the recovery room in stable condition. All counts were correct at the end of the case 2. DELFINA MENDOZA MD Jan 04, 2017 22:24
[2017-01-04] MEDS ORDERED: HYDROCODONE/APAP (5/325) TAB PO PRN ×2 (22:30)
[2017-01-04] MEDS ORDERED: ACETAMINOPHEN 1000MG/100ML IV 100 ML ONE (22:59)
[2017-01-04] MEDS ORDERED: MEPERIDINE 25 MG INJ IV ONE (23:00)
[2017-01-04] MEDS ORDERED: ACETAMINOPHEN 1000MG/100ML IV 100 ML IVPB ONE (23:00)
[2017-01-05 00:15] VITALS: BP 105/60; RESP 20
[2017-01-05] MEDS: PIPER-TAZO 3.375 GM IV (PMX) 100 ML IVPB SCH ×2 (00:46→05:24)
[2017-01-05 02:00] VITALS: BP 96/58; RESP 20
[2017-01-05] MEDS: D5W-0.45 NACL + KCL 20 MEQ 1,000 ML IV SCH ×2 (05:23→07:30)
[2017-01-05 07:15] LABS: BASOPHIL # 0.1 10^3/ul (0.0-0.1); BASOPHILS % 0.4 % (0.0-2.0); EOSINOPHILS % 0.2 % (0.0-7.0); HEMATOCRIT 35.3 % (42.0-52.0); HEMOGLOBIN 11.4 g/dl (14.0-18.0); LYMPHOCYTES # 2.4 10^3/ul (0.8-2.9); LYMPHOCYTES % 14.3 % (15.0-51.0); MEAN CORPUSCULAR HEMOGLOBIN 27.1 pg (29.0-33.0); MEAN CORPUSCULAR HGB CONC 32.3 g/dl (32.0-37.0); MEAN CORPUSCULAR VOLUME 83.8 fl (82.0-101.0); MEAN PLATELET VOLUME 11.8 fl (7.4-10.4); MONOCYTE # 1.4 10^3/ul (0.3-0.9); MONOCYTES % 8.2 % (0.0-11.0); NEUTROPHILS % 76.2 % (39.0-77.0); PLATELET COUNT 204 10^3/UL (140-415); RED BLOOD COUNT 4.21 10^6/ul (4.70-6.10); RED CELL DISTRIBUTION WIDTH 13.8 % (11.5-14.5)
[2017-01-05 07:20] VITALS: BP 101/58; RESP 16
[2017-01-05 07:40] LABS: ALBUMIN 3.2 g/dl (3.3-4.9); ALBUMIN/GLOBULIN RATIO 0.94; BILIRUBIN,INDIRECT 0.6 mg/dl (0-1.1); BILIRUBIN,TOTAL 0.6 mg/dl (0.2-1.3); CALCIUM 8.2 mg/dl (8.4-10.2); CREATININE 1.07 mg/dl (0.61-1.24); POTASSIUM 4.1 mmol/L (3.5-5.1); TOTAL PROTEIN 6.6 g/dl (6.1-8.1)
[2017-01-05] MEDS: SENNA TAB PO SCH ×2 (09:26→20:15)
[2017-01-05] MEDS: HYDROmorphONE 1 MG/ML SYG IV PRN ×2 (09:37→19:54)
--- NOTE | 2017-01-05 09:45 | PN ---
Date/Time of Note Date/Time of Note DATE: 01/05/17 TIME: 09:42 Assessment/Plan Lines/Catheters IV Catheter Type (from [facility]): Peripheral IV Assessment/Plan Assessment/Plan 41-year-old male with recurrent perirectal abscess status post incision and drainage postop day #1 * Packing removed. * Continue local wound care * Follow-up cultures * Recommend IV antibiotics for at least another 24 hours given cellulitis. * If remains stable can possibly be discharged home in a.m. on oral antibiotics. * Will need outpatient follow-up with colorectal surgeon to evaluate for rectal fistula once acute inflammation resolves Subjective 24 Hr Interval Summary No complaints. Afebrile. Exam/Review of Systems Vital Signs Vitals Vital Signs Date Time Temp Pulse Resp B/P Pulse Ox O2 Delivery O2 Flow Rate FiO2 01/05/17 07:20 98.6 101 16 101/58 98 01/04/17 23:40 Nasal Cannula 2.0 Intake and Output 01/04/17 01/04/17 01/05/17 15:00 23:00 07:00 Intake Total 800 ml 2140 ml 960 ml Output Total 5 ml Balance 800 ml 2135 ml 960 ml Exam Free Text/Dictation WOUND: Clean, no drainage. Cellulitis still present, but improved. Results Result Diagram: 01/05/1761101/05/17611 DELFINA MENDOZA MD Jan 05, 2017 09:45
[2017-01-05] MEDS ORDERED: VANCOMYCIN IV PER PHARMACY XX SCH (11:00)
--- NOTE | 2017-01-05 11:19 | CONS ---
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 - h/o perineal abscess s/p I&D in 07/2016. Cx grew bacteroides, gamma hemolytic strep and ESBL+E. coli - scrotal pain, likely referred pain. No e/o scrotal abscess on the physical exam - diverticulosis recommendations - await the results of intra-operative cultures - I recommend IV vancomycin and meropenem (Pt had perineal abscess due to ESBL+ E. coli in 07/2016) empirically. Will adjust his antibiotics based on the final culture results management d/w Pt Problems: Consultation Date/Type/Reason Admit Date/Time Jan 03, 2017 at 22:59 Date of Consultation: Jan 05, 2017 Type of Consultation: ID Reason for Consultation perineal abscess Referring Provider: FRITZ FUENTES Hx of Present Illness This is a 41 yo male with h/o perineal abscess due to bacteroides, ESBL+E. coli and gamma hemolytic strep in 07/2016. Pt returned to ER c/o pain of the L buttock that radiated to L scrotum, and fever. Pt's CT showed perineal abscess with cutaneous fistula of L buttock. Pt underwent I&D on 01/04/2017. Intra- operative cultures are still in process. ROMEO Fuentes requested ID consultation on this Pt. Constitutional: chills, febrile Eyes: no complaints ENT: no complaints Respiratory: no complaints Cardiovascular: no complaints Gastrointestinal: constipation (prior to the onset of abscess), No diarrhea, No nausea, No vomiting Genitourinary: other (pain in L scrotum), No dysuria Musculoskeletal: no complaints Skin: no complaints, other (abcsess left buttock) Neurologic: no complaints Past Medical History Medical History: other (perineal abscess ) Past Surgical History Past Surgical Hx: other (s/p I&D of perineal abscess) Social History Smoking Status: Former smoker Exam/Review of Systems Vital Signs Vitals Vital Signs Date Time Temp Pulse Resp B/P Pulse Ox O2 Delivery O2 Flow Rate FiO2 01/05/17 07:20 98.6 101 16 101/58 98 01/04/17 23:40 Nasal Cannula 2.0 Intake and Output 8/31/17 8/31/17 9/1/17 15:00 23:00 07:00 Intake Total 800 ml 2140 ml 960 ml Output Total 5 ml Balance 800 ml 2135 ml 960 ml Exam Constitutional: alert, oriented, well developed Psych: nl mood/affect, no complaints Head: atraumatic, normocephalic Eyes: nl conjunctiva, nl lids ENMT: nl external ears & nose, nl nasal mucosa & septum Neck: non-tender, supple Respiratory: clear to auscultation, normal air movement Cardiovascular: nl pulses, regular rate and rhythm Gastrointestinal: non-tender, soft, No distended Genitourinary - Male: nl penis, nl scrotum, other (mild erythema of L scrotum, mildly TTP but no fluctuance or induration) Musculoskeletal: nl extremities to inspection Extremities: normal pulses Neurological: YARD HAND II-XII intact, nl mental status, nl speech Skin: rash or lesions (surgical site of L buttock is dressed c/d/i. The skin is indurated and TTP) Results Result Diagram: 01/05/17 0612 01/05/17 0612 Results 24 hrs Laboratory Tests Test 01/05/17 06:12 White Blood Count 17.0 H Red Blood Count 4.21 L Hemoglobin 11.4 L Hematocrit 35.3 L Mean Corpuscular Volume 83.8 Mean Corpuscular Hemoglobin 27.1 L Mean Corpuscular Hemoglobin Concent 32.3 Red Cell Distribution Width 13.8 Platelet Count 204 Mean Platelet Volume 11.8 H Neutrophils % 76.2 Lymphocytes % 14.3 L Monocytes % 8.2 Eosinophils % 0.2 Basophils % 0.4 Nucleated Red Blood Cells % 0.0 Neutrophils # (Manual) 13.0 H Lymphocytes # 2.4 Monocytes # 1.4 H Eosinophils # 0.0 Basophils # 0.1 Nucleated Red Blood Cells # 0.0 Sodium Level 139 Potassium Level 4.1 Chloride Level 107 Carbon Dioxide Level 26 Anion Gap 10 # Blood Urea Nitrogen 9 Creatinine 1.07 Glucose Level 113 Calcium Level 8.2 L Total Bilirubin 0.6 Direct Bilirubin 0.00 Indirect Bilirubin 0.6 Aspartate Amino Transf (AST/SGOT) 17 Alanine Aminotransferase (ALT/SGPT) 32 Alkaline Phosphatase 62 Total Protein 6.6 # Albumin 3.2 #L Globulin 3.40 H Albumin/Globulin Ratio 0.94 Medications Medications Current Medications Ondansetron HCl (Zofran Inj) 4 mg Q6H PRN IV NAUSEA AND/OR VOMITING; Start at 01:30 Acetaminophen 650 mg 650 mg Q6H PRN PO PAIN AND OR ELEVATED TEMP Last administered on 01/04/17 16:53; Admin Dose 650 MG; Start 01/04/17 at 01:30 Potassium Chloride/Dextrose/ Sod Cl (D5-1/2ns + KCl 20 Meq) 1,000 ml @ 100 mls/ hr Q10H IV Last administered on 01/05/17 05:23; Admin Dose 100 MLS/HR; Start at 01:30 Hydromorphone HCl (Dilaudid) 1 mg Q3H PRN IV PAIN Last administered on 09:37; Admin Dose 1 MG; Start 01/04/17 at 01:30 Senna (Senokot) 1 tab BID PO Last administered on 01/05/17 09:26; Admin Dose 1 TAB; Start 01/04/17 at 21:00 Acetaminophen/ Hydrocodone Bitart ([place] (5/325)) 1 tab Q6H PRN PO PAIN LEVEL 6 -10 Last administered on 01/05/17 09:25; Admin Dose 1 TAB; Start 01/04/17 at 22: 30 Ondansetron HCl (Zofran Inj) 4 mg Q6H PRN IV NAUSEA AND/OR VOMITING; Start at 22:30 Acetaminophen/ Hydrocodone Bitart 2 tab 2 tab Q4H PRN PO MODERATE PAIN LEVEL 4- 6; Start 01/04/17 at 22:30 Meropenem/Sodium Chloride (Merrem 1 Gm/50 ml (Pmx)) 50 ml @ 100 mls/hr Q8 IVPB ; Start 01/05/17 at 14:00 TAMMY VERDUGO M.D. Jan 05, 2017 11:19
[2017-01-05] MEDS ORDERED: VANCOMYCIN 2 GM in SOD CHLORIDE 0.9% 500 ML IVPB ONE (12:00)
[2017-01-05 14:10] VITALS: BP 113/66; RESP 16
[2017-01-05] MEDS: MEROPENEM 1 GM/50ML(PMX) 50 ML IVPB SCH ×2 (17:15→21:42)
--- NOTE | 2017-01-05 18:38 | PN ---
Date/Time of Note Date/Time of Note DATE: 01/05/17 TIME: 18:35 Assessment/Plan VTE Prophylaxis VTE Prophylaxis Intervention: other Lines/Catheters IV Catheter Type (from Nrsg): Peripheral IV Assessment/Plan Assessment/Plan -Abscess, perineum - sp I& D PERINEUM ABCESS - dILAUDID FOR PAIN -Sepsis - ID Consult- Dr Mendiola notified - sp Hemorrhoidectomy - Current smoker - SMOKING CESSATION Dw Dr guerrier/ staff/patient Exam/Review of Systems Vital Signs Vitals Vital Signs Date Time Temp Pulse Resp B/P Pulse Ox O2 Delivery O2 Flow Rate FiO2 01/05/17 14:10 98.2 84 16 113/66 97 01/04/17 23:40 Nasal Cannula 2.0 Intake and Output 01/04/17 01/04/17 01/05/17 15:00 23:00 07:00 Intake Total 800 ml 2140 ml 960 ml Output Total 5 ml Balance 800 ml 2135 ml 960 ml Exam Constitutional: alert, oriented, well developed Respiratory: clear to auscultation, normal air movement Cardiovascular: nl pulses, regular rate and rhythm Gastrointestinal: non-tender, soft Musculoskeletal: nl extremities to inspection Extremities: normal pulses Neurological: nl mental status, nl speech Results Result Diagram: 01/05/17 0612 01/05/17 0612 Results 24 hrs Laboratory Tests Test 01/05/17 06:12 White Blood Count 17.0 H Red Blood Count 4.21 L Hemoglobin 11.4 L Hematocrit 35.3 L Mean Corpuscular Volume 83.8 Mean Corpuscular Hemoglobin 27.1 L Mean Corpuscular Hemoglobin Concent 32.3 Red Cell Distribution Width 13.8 Platelet Count 204 Mean Platelet Volume 11.8 H Neutrophils % 76.2 Lymphocytes % 14.3 L Monocytes % 8.2 Eosinophils % 0.2 Basophils % 0.4 Nucleated Red Blood Cells % 0.0 Neutrophils # (Manual) 13.0 H Lymphocytes # 2.4 Monocytes # 1.4 H Eosinophils # 0.0 Basophils # 0.1 Nucleated Red Blood Cells # 0.0 Sodium Level 139 Potassium Level 4.1 Chloride Level 107 Carbon Dioxide Level 26 Anion Gap 10 # Blood Urea Nitrogen 9 Creatinine 1.07 Glucose Level 113 Calcium Level 8.2 L Total Bilirubin 0.6 Direct Bilirubin 0.00 Indirect Bilirubin 0.6 Aspartate Amino Transf (AST/SGOT) 17 Alanine Aminotransferase (ALT/SGPT) 32 Alkaline Phosphatase 62 Total Protein 6.6 # Albumin 3.2 #L Globulin 3.40 H Albumin/Globulin Ratio 0.94 Medications Medications Current Medications Acetaminophen 650 mg 650 mg Q6H PRN PO PAIN AND OR ELEVATED TEMP Last administered on 01/04/17 16:53; Admin Dose 650 MG; Start 01/04/17 at 01:30 Potassium Chloride/Dextrose/ Sod Cl (D5-1/2ns + KCl 20 Meq) 1,000 ml @ 100 mls/ hr Q10H IV Last administered on 01/05/17 05:23; Admin Dose 100 MLS/HR; Start at 01:30 Hydromorphone HCl (Dilaudid) 1 mg Q3H PRN IV PAIN Last administered on 09:37; Admin Dose 1 MG; Start 01/04/17 at 01:30 Senna (Senokot) 1 tab BID PO Last administered on 01/05/17 09:26; Admin Dose 1 TAB; Start 01/04/17 at 21:00 Acetaminophen/ Hydrocodone Bitart ([place] (5/325)) 1 tab Q6H PRN PO PAIN LEVEL 6 -10 Last administered on 01/05/17 09:25; Admin Dose 1 TAB; Start 01/04/17 at 22: 30 Ondansetron HCl (Zofran Inj) 4 mg Q6H PRN IV NAUSEA AND/OR VOMITING; Start at 22:30 Acetaminophen/ Hydrocodone Bitart 2 tab 2 tab Q4H PRN PO MODERATE PAIN LEVEL 4- 6; Start 01/04/17 at 22:30 Meropenem/Sodium Chloride 50 ml @ 100 mls/hr Q8 IVPB Last administered on 17:15; Admin Dose 100 MLS/HR; Start 01/05/17 at 14:00 Vancomycin HCl/ Sodium Chloride (Vancocin/NS) 250 ml @ 83.333 mls/ hr Q12H IVPB ; Start 01/06/17 at 00:00 FRITZ FUENTES Jan 05, 2017 18:38
[2017-01-05 20:00] VITALS: BP 103/65; RESP 20
[2017-01-06] MEDS: VANCOMYCIN 1.25 GM in SOD CHLORIDE 0.9% 250 ML IVPB SCH ×2 (01:16→12:17)
[2017-01-06 02:00] VITALS: BP 117/78; RESP 20
[2017-01-06] MEDS: MEROPENEM 1 GM/50ML(PMX) 50 ML IVPB SCH ×3 (06:02→21:53)
[2017-01-06 06:46] LABS: BASOPHILS % 0.4 % (0.0-2.0); EOSINOPHILS # 0.2 10^3/ul (0.0-0.5); EOSINOPHILS % 1.6 % (0.0-7.0); HEMOGLOBIN 12.7 g/dl (14.0-18.0); LYMPHOCYTES # 2.9 10^3/ul (0.8-2.9); LYMPHOCYTES % 26.9 % (15.0-51.0); MEAN CORPUSCULAR HGB CONC 32.6 g/dl (32.0-37.0); MEAN PLATELET VOLUME 11.7 fl (7.4-10.4); MONOCYTE # 0.8 10^3/ul (0.3-0.9); MONOCYTES % 7.4 % (0.0-11.0); NEUTROPHILS % 63.3 % (39.0-77.0); PLATELET COUNT 238 10^3/UL (140-415); RED CELL DISTRIBUTION WIDTH 13.5 % (11.5-14.5); WHITE BLOOD COUNT 10.7 10^3/ul (4.8-10.8)
[2017-01-06 07:10] LABS: CREATININE 1.05 mg/dl (0.61-1.24)
[2017-01-06 07:16] LABS: CREATININE 1.05 mg/dl (0.61-1.24); POTASSIUM 3.8 mmol/L (3.5-5.1)
[2017-01-06 08:09] VITALS: BP 109/68; RESP 16
[2017-01-06] MEDS: SENNA TAB PO SCH ×2 (09:24→20:42)
--- NOTE | 2017-01-06 11:42 | PN ---
Date/Time of Note Date/Time of Note DATE: 01/06/17 TIME: 11:42 Assessment/Plan VTE Prophylaxis VTE Prophylaxis Intervention: other Lines/Catheters IV Catheter Type (from Nrsg): Peripheral IV Urinary Cath still in place: No Assessment/Plan Chief Complaint/Hosp Course -Abscess, perineum - sp I& D PERINEUM ABCESS - dILAUDID FOR PAIN -Sepsis - ID Consult- Dr Mendiola notified - sp Hemorrhoidectomy - Current smoker - SMOKING CESSATION Problems: Subjective 24 Hr Interval Summary Free Text/Dictation Patient has pain in perineal area Exam/Review of Systems Vital Signs Vitals Vital Signs Date Time Temp Pulse Resp B/P Pulse Ox O2 Delivery O2 Flow Rate FiO2 01/06/17 08:09 98.4 91 16 109/68 99 01/04/17 23:40 Nasal Cannula 2.0 Intake and Output 01/05/17 01/05/17 01/06/17 15:00 23:00 07:00 Intake Total 600 ml 1420 ml 1500 ml Balance 600 ml 1420 ml 1500 ml Exam Constitutional: well developed Head: atraumatic, normocephalic Neck: supple Respiratory: diminished breath sounds Cardiovascular: regular rate and rhythm Gastrointestinal: non-tender, soft Extremities: normal pulses Results Result Diagram: 01/06/17 0544 01/06/17 0544 Results 24 hrs Laboratory Tests Test 01/06/17 05:44 White Blood Count 10.7 # Red Blood Count 4.70 Hemoglobin 12.7 L Hematocrit 39.0 L Mean Corpuscular Volume 83.0 Mean Corpuscular Hemoglobin 27.0 L Mean Corpuscular Hemoglobin Concent 32.6 Red Cell Distribution Width 13.5 Platelet Count 238 Mean Platelet Volume 11.7 H Neutrophils % 63.3 Lymphocytes % 26.9 Monocytes % 7.4 Eosinophils % 1.6 Basophils % 0.4 Nucleated Red Blood Cells % 0.0 Neutrophils # (Manual) 6.8 Lymphocytes # 2.9 Monocytes # 0.8 Eosinophils # 0.2 Basophils # 0.0 Nucleated Red Blood Cells # 0.0 Sodium Level 141 Potassium Level 3.8 Chloride Level 104 Carbon Dioxide Level 27 Anion Gap 14 Blood Urea Nitrogen 7 Creatinine 1.05 Glucose Level 93 Hemoglobin A1c 5.9 Calcium Level 9.0 Medications Medications Current Medications Acetaminophen (Tylenol Tab) 650 mg Q6H PRN PO PAIN AND OR ELEVATED TEMP Last administered on 01/04/17 16:53; Admin Dose 650 MG; Start 01/04/17 at 01:30 Hydromorphone HCl (Dilaudid) 1 mg Q3H PRN IV PAIN Last administered on 19:54; Admin Dose 1 MG; Start 01/04/17 at 01:30 Senna (Senokot) 1 tab BID PO Last administered on 01/06/17 09:24; Admin Dose 1 TAB; Start 01/04/17 at 21:00 Acetaminophen/ Hydrocodone Bitart ([place] (5/325)) 1 tab Q6H PRN PO PAIN LEVEL 6 -10 Last administered on 01/05/17 09:25; Admin Dose 1 TAB; Start 01/04/17 at 22: 30 Ondansetron HCl (Zofran Inj) 4 mg Q6H PRN IV NAUSEA AND/OR VOMITING; Start at 22:30 Acetaminophen/ Hydrocodone Bitart 2 tab 2 tab Q4H PRN PO MODERATE PAIN LEVEL 4- 6; Start 01/04/17 at 22:30 Meropenem/Sodium Chloride 50 ml @ 100 mls/hr Q8 IVPB Last administered on 06:02; Admin Dose 100 MLS/HR; Start 01/05/17 at 14:00 Vancomycin HCl/ Sodium Chloride (Vancocin/NS) 250 ml @ 83.333 mls/ hr Q12H IVPB Last administered on 01/06/17 01:16; Admin Dose 83.333 MLS/HR; Start at 00:00 JESSEE SANCHEZ Jan 06, 2017 11:42
--- NOTE | 2017-01-06 14:35 | PN ---
Date/Time of Note Date/Time of Note DATE: 01/06/17 TIME: 14:33 Assessment/Plan Lines/Catheters IV Catheter Type (from Nrsg): Peripheral IV Carnes in Place (from Nrsg): No Assessment/Plan Assessment/Plan 41-year-old male with recurrent perirectal abscess status post incision and drainage postop day #2 * Continue local wound care * Cultures noted. Gram-negative rods with scant gram-positive. ID and sensitivity pending. * Continue antibiotics for cellulitis * Surgically stable for discharge home once medically cleared on oral antibiotics, pain control and stool softeners. * Will need outpatient follow-up with colorectal surgeon to evaluate for rectal fistula once acute inflammation resolves Subjective 24 Hr Interval Summary Some mild pain around incision and drainage site. Afebrile. Exam/Review of Systems Vital Signs Vitals Vital Signs Date Time Temp Pulse Resp B/P Pulse Ox O2 Delivery O2 Flow Rate FiO2 01/06/17 08:09 98.4 91 16 109/68 99 01/04/17 23:40 Nasal Cannula 2.0 Intake and Output 01/05/17 01/05/17 01/06/17 15:00 23:00 07:00 Intake Total 600 ml 1420 ml 1500 ml Balance 600 ml 1420 ml 1500 ml Exam Free Text/Dictation WOUND: Clean, no drainage. Cellulitis still present, but improving. Results Result Diagram: 01/06/17 0544 01/06/17 0544 DELFINA MENDOZA MD Jan 06, 2017 14:35
[2017-01-06 14:44] VITALS: BP 123/85; RESP 16
[2017-01-06 20:00] VITALS: BP 120/79; RESP 19
--- NOTE | 2017-01-06 20:44 | CONS ---
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 - h/o perineal abscess s/p I&D in 07/2016. Cx grew bacteroides, gamma hemolytic strep and ESBL+E. coli - scrotal pain, likely referred pain. No e/o scrotal abscess on the physical exam - diverticulosis recommendations: - await the results of intra-operative cultures (NTD) - continue empiric IV vancomycin and meropenem (Pt had perineal abscess due to ESBL+E. coli in 07/2016); Will adjust his antibiotics based on the final culture results Management d/w patient and Dr. Mendiola Problems: Consultation Date/Type/Reason Admit Date/Time Jan 03, 2017 at 22:59 Initial Consult Date 01/05/17 Type of Consultation: Infectious Disease Referring Provider: FRITZ FUENTES 24 HR Interval Summary Free Text/Dictation C/o intermittent perineal pain but overall tolerable on current pain regimen. Had some nausea earlier but no vomiting. No diarrhea or dysuria. Exam/Review of Systems Vital Signs Vitals Vital Signs Date Time Temp Pulse Resp B/P Pulse Ox O2 Delivery O2 Flow Rate FiO2 01/06/17 14:44 97.9 89 16 123/85 96 01/04/17 23:40 Nasal Cannula 2.0 Intake and Output 01/05/17 01/05/17 01/06/17 15:00 23:00 07:00 Intake Total 600 ml 1420 ml 1500 ml Balance 600 ml 1420 ml 1500 ml Exam Constitutional: alert, oriented, well developed Psych: nl mood/affect Head: atraumatic, normocephalic Neck: non-tender, supple Respiratory: clear to auscultation, normal air movement Cardiovascular: nl pulses, regular rate and rhythm Gastrointestinal: non-tender, soft Musculoskeletal: nl extremities to inspection Extremities: normal pulses Neurological: [employer]ED[employer]ER II-XII intact, nl mental status, nl speech Skin: nl turgor, other (surgical site of L buttock with dressing stained, dry and intact) Results Result Diagram: 01/06/17 0544 01/06/17 0544 Results 24 hrs Laboratory Tests Test 01/06/17 05:44 White Blood Count 10.7 # Red Blood Count 4.70 Hemoglobin 12.7 L Hematocrit 39.0 L Mean Corpuscular Volume 83.0 Mean Corpuscular Hemoglobin 27.0 L Mean Corpuscular Hemoglobin Concent 32.6 Red Cell Distribution Width 13.5 Platelet Count 238 Mean Platelet Volume 11.7 H Neutrophils % 63.3 Lymphocytes % 26.9 Monocytes % 7.4 Eosinophils % 1.6 Basophils % 0.4 Nucleated Red Blood Cells % 0.0 Neutrophils # (Manual) 6.8 Lymphocytes # 2.9 Monocytes # 0.8 Eosinophils # 0.2 Basophils # 0.0 Nucleated Red Blood Cells # 0.0 Sodium Level 141 Potassium Level 3.8 Chloride Level 104 Carbon Dioxide Level 27 Anion Gap 14 Blood Urea Nitrogen 7 Creatinine 1.05 Glucose Level 93 Hemoglobin A1c 5.9 Calcium Level 9.0 Medications Medications Current Medications Acetaminophen (Tylenol Tab) 650 mg Q6H PRN PO PAIN AND OR ELEVATED TEMP Last administered on 01/04/17 16:53; Admin Dose 650 MG; Start 01/04/17 at 01:30 Hydromorphone HCl (Dilaudid) 1 mg Q3H PRN IV PAIN Last administered on 19:54; Admin Dose 1 MG; Start 01/04/17 at 01:30 Senna (Senokot) 1 tab BID PO Last administered on 01/06/17 09:24; Admin Dose 1 TAB; Start 01/04/17 at 21:00 Acetaminophen/ Hydrocodone Bitart ([place] (5/325)) 1 tab Q6H PRN PO PAIN LEVEL 6 -10 Last administered on 01/05/17 09:25; Admin Dose 1 TAB; Start 01/04/17 at 22: 30 Ondansetron HCl (Zofran Inj) 4 mg Q6H PRN IV NAUSEA AND/OR VOMITING; Start at 22:30 Acetaminophen/ Hydrocodone Bitart 2 tab 2 tab Q4H PRN PO MODERATE PAIN LEVEL 4- 6; Start 01/04/17 at 22:30 Meropenem/Sodium Chloride 50 ml @ 100 mls/hr Q8 IVPB Last administered on 15:20; Admin Dose 100 MLS/HR; Start 01/05/17 at 14:00 Vancomycin HCl/ Sodium Chloride (Vancocin/NS) 250 ml @ 83.333 mls/ hr Q12H IVPB Last administered on 01/06/17t 12:17; Admin Dose 83.333 MLS/HR; Start at 00:00 Miscellaneous Information (*Rx Drug Level Order Reminder*) VANCOMYCIN TROUGH 01/06 AT 2300 ONCE ONCE XX ; Start 01/06/17 at 23:00; Stop 01/06/17 at 23:01 TAMMY MENDIOLA M.D. 01/07/17 1804: Assessment/Plan Assessment/Plan Additional Assessment/Plan Maury attestation: I discussed the management with ROMEO Humphries and agree with above Exam/Review of Systems Results Result Diagram: 01/06/17 0544 01/06/17 0544 REJI HUMPHRIES NP Jan 06, 2017 20:44 TAMMY MENDIOLA M.D. Jan 07, 2017 18:04
[2017-01-06] MEDS: HYDROmorphONE 1 MG/ML SYG IV PRN (20:47)
[2017-01-07] MEDS: VANCOMYCIN 1.25 GM in SOD CHLORIDE 0.9% 250 ML IVPB SCH ×3 (00:46→20:49)
[2017-01-07 02:44] VITALS: BP 116/80; RESP 17
[2017-01-07] MEDS: MEROPENEM 1 GM/50ML(PMX) 50 ML IVPB SCH ×3 (05:26→23:53)
[2017-01-07 07:45] VITALS: BP 113/82; RESP 18
[2017-01-07] MEDS: SENNA TAB PO SCH ×2 (08:35→20:49)
--- NOTE | 2017-01-07 12:31 | PN ---
Date/Time of Note Date/Time of Note DATE: 01/07/17 TIME: 12:31 Assessment/Plan VTE Prophylaxis VTE Prophylaxis Intervention: other Lines/Catheters IV Catheter Type (from Nrsg): Saline Lock Urinary Cath still in place: No Assessment/Plan Chief Complaint/Hosp Course -Abscess, perineum - sp I& D PERINEUM ABCESS - dILAUDID FOR PAIN -Sepsis - ID Consult- Dr Mendiola notified - sp Hemorrhoidectomy - Current smoker - SMOKING CESSATION Problems: Subjective 24 Hr Interval Summary Free Text/Dictation Patient denies any pain Exam/Review of Systems Vital Signs Vitals Vital Signs Date Time Temp Pulse Resp B/P Pulse Ox O2 Delivery O2 Flow Rate FiO2 01/07/17 07:45 98.1 73 18 113/82 96 01/04/17 23:40 Nasal Cannula 2.0 Intake and Output 01/06/17 01/06/17 01/07/17 15:00 23:00 07:00 Intake Total 1450 ml 1450 ml Balance 1450 ml 1450 ml Exam Constitutional: well developed Head: atraumatic, normocephalic Neck: supple Respiratory: clear to auscultation Cardiovascular: regular rate and rhythm Gastrointestinal: non-tender, soft Extremities: normal pulses Results Result Diagram: 01/06/17 0544 01/06/17 0544 Results 24 hrs Laboratory Tests Test 01/06/17 23:05 Vancomycin Level Trough 6.6 L Medications Medications Current Medications Acetaminophen (Tylenol Tab) 650 mg Q6H PRN PO PAIN AND OR ELEVATED TEMP Last administered on 01/04/17 16:53; Admin Dose 650 MG; Start 01/04/17 at 01:30 Hydromorphone HCl (Dilaudid) 1 mg Q3H PRN IV PAIN Last administered on 20:47; Admin Dose 1 MG; Start 01/04/17 at 01:30 Senna (Senokot) 1 tab BID PO Last administered on 01/07/17 08:35; Admin Dose 1 TAB; Start 01/04/17 at 21:00 Acetaminophen/ Hydrocodone Bitart ([place] (5/325)) 1 tab Q6H PRN PO PAIN LEVEL 6 -10 Last administered on 01/05/17 09:25; Admin Dose 1 TAB; Start 01/04/17 at 22: 30 Ondansetron HCl (Zofran Inj) 4 mg Q6H PRN IV NAUSEA AND/OR VOMITING; Start at 22:30 Acetaminophen/ Hydrocodone Bitart 2 tab 2 tab Q4H PRN PO MODERATE PAIN LEVEL 4- 6; Start 01/04/17 at 22:30 Meropenem/Sodium Chloride 50 ml @ 100 mls/hr Q8 IVPB Last administered on 05:26; Admin Dose 100 MLS/HR; Start 01/05/17 at 14:00 Vancomycin HCl/ Sodium Chloride (Vancocin/NS) 250 ml @ 83.333 mls/ hr Q8H IVPB Last administered on 01/07/17 11:58; Admin Dose 83.333 MLS/HR; Start 01/07/17 at 12:00 JESSEE SANCHEZ Jan 07, 2017 12:31
--- NOTE | 2017-01-07 12:46 | PN ---
Date/Time of Note Date/Time of Note DATE: 01/07/17 TIME: 12:45 Assessment/Plan Lines/Catheters IV Catheter Type (from Nrsg): Saline Lock Carnes in Place (from Nrsg): No Assessment/Plan Assessment/Plan 41-year-old male with recurrent perirectal abscess status post incision and drainage postop day #3 * Continue local wound care * Cultures noted. Gram-negative rods with scant gram-positive. ID and sensitivity pending. * Continue antibiotics for cellulitis * Surgically stable for discharge home once medically cleared on oral antibiotics, pain control and stool softeners. * Will need outpatient follow-up with colorectal surgeon to evaluate for rectal fistula once acute inflammation resolves Subjective 24 Hr Interval Summary Pain improving. Afebrile. Exam/Review of Systems Vital Signs Vitals Vital Signs Date Time Temp Pulse Resp B/P Pulse Ox O2 Delivery O2 Flow Rate FiO2 01/07/17 07:45 98.1 73 18 113/82 96 01/04/17 23:40 Nasal Cannula 2.0 Intake and Output 01/06/17 01/06/17 01/07/17 15:00 23:00 07:00 Intake Total 1450 ml 1450 ml Balance 1450 ml 1450 ml Exam Free Text/Dictation WOUND: Clean, no drainage. Cellulitis still present, but improving. Results Result Diagram: 01/06/17 0544 01/06/17 0544 DELFINA MENDOZA MD Jan 07, 2017 12:46
[2017-01-07] MEDS ORDERED: VANCOMYCIN 1.25 GM in SOD CHLORIDE 0.9% 250 ML IVPB SCH (13:00)
[2017-01-07 14:09] VITALS: BP 123/75; RESP 16
[2017-01-07 20:59] VITALS: BP 111/73; RESP 18
[2017-01-08 02:00] VITALS: BP 112/73; RESP 17
[2017-01-08] MEDS: VANCOMYCIN 1.25 GM in SOD CHLORIDE 0.9% 250 ML IVPB SCH ×3 (04:26→20:29)
[2017-01-08 05:56] LABS: BASOPHIL # 0.1 10^3/ul (0.0-0.1); BASOPHILS % 0.8 % (0.0-2.0); EOSINOPHILS # 0.3 10^3/ul (0.0-0.5); EOSINOPHILS % 2.9 % (0.0-7.0); HEMOGLOBIN 13.7 g/dl (14.0-18.0); LYMPHOCYTES # 3.1 10^3/ul (0.8-2.9); LYMPHOCYTES % 33.3 % (15.0-51.0); MEAN CORPUSCULAR HEMOGLOBIN 26.2 pg (29.0-33.0); MEAN CORPUSCULAR HGB CONC 31.9 g/dl (32.0-37.0); MEAN CORPUSCULAR VOLUME 82.4 fl (82.0-101.0); MEAN PLATELET VOLUME 11.1 fl (7.4-10.4); MONOCYTE # 0.7 10^3/ul (0.3-0.9); NEUTROPHILS % 54.7 % (39.0-77.0); PLATELET COUNT 320 10^3/UL (140-415); RED BLOOD COUNT 5.22 10^6/ul (4.70-6.10); RED CELL DISTRIBUTION WIDTH 13.9 % (11.5-14.5); WHITE BLOOD COUNT 9.3 10^3/ul (4.8-10.8)
[2017-01-08 06:30] LABS: CALCIUM 9.3 mg/dl (8.4-10.2); CREATININE 0.93 mg/dl (0.61-1.24); POTASSIUM 4.1 mmol/L (3.5-5.1)
[2017-01-08] MEDS: HYDROmorphONE 1 MG/ML SYG IV PRN ×2 (07:02→21:08)
[2017-01-08 08:00] VITALS: BP 121/76; RESP 18
[2017-01-08] MEDS: SENNA TAB PO SCH ×2 (08:14→20:29)
[2017-01-08] MEDS: MEROPENEM 1 GM/50ML(PMX) 50 ML IVPB SCH ×2 (08:14→15:24)
--- NOTE | 2017-01-08 11:47 | PN ---
Date/Time of Note Date/Time of Note DATE: 01/08/17 TIME: 11:46 Assessment/Plan VTE Prophylaxis VTE Prophylaxis Intervention: other Lines/Catheters IV Catheter Type (from Nrsg): Saline Lock Urinary Cath still in place: No Assessment/Plan Chief Complaint/Hosp Course -Abscess, perineum - sp I& D PERINEUM ABCESS - dILAUDID FOR PAIN -Sepsis - ID Consult- Dr Mendiola notified - sp Hemorrhoidectomy - Current smoker - SMOKING CESSATION Problems: Subjective 24 Hr Interval Summary Free Text/Dictation Patient has no complaints Exam/Review of Systems Vital Signs Vitals Vital Signs Date Time Temp Pulse Resp B/P Pulse Ox O2 Delivery O2 Flow Rate FiO2 01/08/17 08:00 97.9 72 18 121/76 98 01/04/17 23:40 Nasal Cannula 2.0 Intake and Output 01/07/17 01/07/17 01/08/17 14:59 22:59 06:59 Intake Total 1150 ml 780 ml Balance 1150 ml 780 ml Exam Constitutional: well developed Head: atraumatic, normocephalic Neck: supple Respiratory: clear to auscultation Cardiovascular: regular rate and rhythm Gastrointestinal: non-tender, soft Extremities: normal pulses Results Result Diagram: 01/08/17 0515 01/08/17 0515 Results 24 hrs Laboratory Tests Test 01/08/17 05:15 White Blood Count 9.3 Red Blood Count 5.22 Hemoglobin 13.7 L Hematocrit 43.0 Mean Corpuscular Volume 82.4 Mean Corpuscular Hemoglobin 26.2 L Mean Corpuscular Hemoglobin Concent 31.9 L Red Cell Distribution Width 13.9 Platelet Count 320 # Mean Platelet Volume 11.1 H Neutrophils % 54.7 Lymphocytes % 33.3 Monocytes % 7.0 Eosinophils % 2.9 Basophils % 0.8 Nucleated Red Blood Cells % 0.0 Neutrophils # (Manual) 5.1 Lymphocytes # 3.1 H Monocytes # 0.7 Eosinophils # 0.3 Basophils # 0.1 Nucleated Red Blood Cells # 0.0 Sodium Level 141 Potassium Level 4.1 Chloride Level 106 Carbon Dioxide Level 26 Anion Gap 13 Blood Urea Nitrogen 11 Creatinine 0.93 Glucose Level 110 Calcium Level 9.3 Medications Medications Current Medications Acetaminophen (Tylenol Tab) 650 mg Q6H PRN PO PAIN AND OR ELEVATED TEMP Last administered on 01/04/17t 16:53; Admin Dose 650 MG; Start 01/04/17 at 01:30 Hydromorphone HCl (Dilaudid) 1 mg Q3H PRN IV PAIN Last administered on 07:02; Admin Dose 1 MG; Start 01/04/17 at 01:30 Senna (Senokot) 1 tab BID PO Last administered on 01/08/17 08:14; Admin Dose 1 TAB; Start 01/04/17 at 21:00 Acetaminophen/ Hydrocodone Bitart ([place] (5/325)) 1 tab Q6H PRN PO PAIN LEVEL 6 -10 Last administered on 01/05/17 09:25; Admin Dose 1 TAB; Start 01/04/17 at 22: 30 Ondansetron HCl (Zofran Inj) 4 mg Q6H PRN IV NAUSEA AND/OR VOMITING; Start at 22:30 Acetaminophen/ Hydrocodone Bitart 2 tab 2 tab Q4H PRN PO MODERATE PAIN LEVEL 4- 6; Start 01/04/17 at 22:30 Meropenem/Sodium Chloride 50 ml @ 100 mls/hr Q8 IVPB Last administered on 08:14; Admin Dose 100 MLS/HR; Start 01/05/17 at 14:00 Vancomycin HCl/ Sodium Chloride (Vancocin/NS) 250 ml @ 83.333 mls/ hr Q8H IVPB Last administered on 01/08/17 04:26; Admin Dose 83.333 MLS/HR; Start 01/07/17 at 12:00 JESSEE SANCHEZ Jan 08, 2017 11:47
--- NOTE | 2017-01-08 12:45 | PN ---
Date/Time of Note Date/Time of Note DATE: 01/08/17 TIME: 12:42 Assessment/Plan Lines/Catheters IV Catheter Type (from Nrs): Saline Lock Carnes in Place (from Nrs): No Assessment/Plan Assessment/Plan 41-year-old male with recurrent perirectal abscess status post incision and drainage postop day #4 * Continue local wound care * Cultures noted. ESBL and MSSA * May need home IV abx. Would require PICC line. Will defer to ID, however, pt. can be discharged once this is decided and set up * Will need outpatient follow-up with colorectal surgeon to evaluate for rectal fistula once acute inflammation resolves Subjective 24 Hr Interval Summary Denies pain. Afebrile. Exam/Review of Systems Vital Signs Vitals Vital Signs Date Time Temp Pulse Resp B/P Pulse Ox O2 Delivery O2 Flow Rate FiO2 01/08/17 08:00 97.9 72 18 121/76 98 01/04/17 23:40 Nasal Cannula 2.0 Intake and Output 01/07/17 01/07/17 01/08/17 15:00 23:00 07:00 Intake Total 250 ml 900 ml 780 ml Balance 250 ml 900 ml 780 ml Exam Free Text/Dictation WOUND: Clean, no drainage. Cellulitis resolved. Results Result Diagram: 01/08/17 0515 01/08/17 0515 DELFINA MENDOZA MD Jan 08, 2017 12:45
[2017-01-08 15:30] VITALS: BP 124/78; RESP 20
--- NOTE | 2017-01-08 17:42 | CONS ---
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 - h/o perineal abscess s/p I&D in 07/2016. Cx grew bacteroides, gamma hemolytic strep and ESBL+E. coli - scrotal pain, likely referred pain. No e/o scrotal abscess on the physical exam - diverticulosis recommendations: - PICC line ordered - continue empiric IV vancomycin for now and change meropenem (Pt had perineal abscess due to ESBL+E. coli in 07/2016) to ertapenem Management d/w patient, JAZMÍN Montgomery, and Dr. Mendiola Problems: Consultation Date/Type/Reason Admit Date/Time Jan 03, 2017 at 22:59 Initial Consult Date 01/05/17 Type of Consultation: Infectious Disease Referring Provider: FRITZ FUENTES 24 HR Interval Summary Free Text/Dictation States incisional pain is tolerable. Reports new pain on R 1st and 5th toes and L 1st and 3rd toes that increases with palpation or ambulation rating 5/10. States thinks he might have h/o gout. Denies n/v/d, dysuria. Wound cx growing ESBL E. Coli, CoNS, and Grp D strep. Exam/Review of Systems Vital Signs Vitals Vital Signs Date Time Temp Pulse Resp B/P Pulse Ox O2 Delivery O2 Flow Rate FiO2 01/08/17 15:30 98.1 78 20 124/78 98 01/04/17 23:40 Nasal Cannula 2.0 Intake and Output 01/07/17 01/07/17 01/08/17 15:00 23:00 07:00 Intake Total 250 ml 900 ml 780 ml Balance 250 ml 900 ml 780 ml Exam Constitutional: alert, oriented, well developed Psych: nl mood/affect Head: atraumatic, normocephalic Neck: non-tender, supple Respiratory: clear to auscultation, normal air movement Cardiovascular: nl pulses, regular rate and rhythm Gastrointestinal: non-tender, soft Musculoskeletal: nl extremities to inspection Extremities: normal pulses Neurological: 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 II-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 intact, nl mental status, nl speech Skin: nl turgor, other (surgical site of L buttock with dressing c/d/i) Results Result Diagram: 01/08/17 0515 01/08/17 0515 Results 24 hrs Laboratory Tests Test 01/08/17 05:15 White Blood Count 9.3 Red Blood Count 5.22 Hemoglobin 13.7 L Hematocrit 43.0 Mean Corpuscular Volume 82.4 Mean Corpuscular Hemoglobin 26.2 L Mean Corpuscular Hemoglobin Concent 31.9 L Red Cell Distribution Width 13.9 Platelet Count 320 # Mean Platelet Volume 11.1 H Neutrophils % 54.7 Lymphocytes % 33.3 Monocytes % 7.0 Eosinophils % 2.9 Basophils % 0.8 Nucleated Red Blood Cells % 0.0 Neutrophils # (Manual) 5.1 Lymphocytes # 3.1 H Monocytes # 0.7 Eosinophils # 0.3 Basophils # 0.1 Nucleated Red Blood Cells # 0.0 Sodium Level 141 Potassium Level 4.1 Chloride Level 106 Carbon Dioxide Level 26 Anion Gap 13 Blood Urea Nitrogen 11 Creatinine 0.93 Glucose Level 110 Calcium Level 9.3 Medications Medications Current Medications Acetaminophen (Tylenol Tab) 650 mg Q6H PRN PO PAIN AND OR ELEVATED TEMP Last administered on 01/04/17 16:53; Admin Dose 650 MG; Start 01/04/17 at 01:30 Hydromorphone HCl (Dilaudid) 1 mg Q3H PRN IV PAIN Last administered on 07:02; Admin Dose 1 MG; Start 01/04/17 at 01:30 Senna (Senokot) 1 tab BID PO Last administered on 01/08/17 08:14; Admin Dose 1 TAB; Start 01/04/17 at 21:00 Acetaminophen/ Hydrocodone Bitart ([place] (5/325)) 1 tab Q6H PRN PO PAIN LEVEL 6 -10 Last administered on 01/05/17 09:25; Admin Dose 1 TAB; Start 01/04/17 at 22: 30 Ondansetron HCl (Zofran Inj) 4 mg Q6H PRN IV NAUSEA AND/OR VOMITING; Start at 22:30 Acetaminophen/ Hydrocodone Bitart 2 tab 2 tab Q4H PRN PO MODERATE PAIN LEVEL 4- 6; Start 01/04/17 at 22:30 Meropenem/Sodium Chloride 50 ml @ 100 mls/hr Q8 IVPB Last administered on 15:24; Admin Dose 100 MLS/HR; Start 01/05/17 at 14:00 Vancomycin HCl/ Sodium Chloride (Vancocin/NS) 250 ml @ 83.333 mls/ hr Q8H IVPB Last administered on 01/08/17t 12:14; Admin Dose 83.333 MLS/HR; Start 01/07/17 at 12:00 Miscellaneous Information (*Rx Drug Level Order Reminder*) VANCOMYCIN TROUGH 01/08 AT 1900 ONCE ONCE XX ; Start 01/08/17 at 19:00; Stop 01/08/17 at 19:01 TAMMY MENDIOLA M.D. 01/09/17 1838: Assessment/Plan Assessment/Plan Additional Assessment/Plan Maury attestation: I discussed the management with ROMEO Humphries and agree with above Exam/Review of Systems Results Result Diagram: 01/08/17 0515 01/08/17 0515 REJI HUMPHRIES NP Jan 08, 2017 17:41 TAMMY MENDIOLA M.D. Jan 09, 2017 18:38
[2017-01-08] MEDS ORDERED: LIDOCAINE 1% (MPF) 5 ML VIAL SC ONE (18:00)
[2017-01-08 19:30] VITALS: BP 126/88; RESP 16
[2017-01-08] MEDS: ERTAPENEM SODIUM 1 GM in SOD CHLORIDE 0.9% 100 ML IVPB SCH (23:36)
[2017-01-09 02:02] VITALS: BP 127/91; RESP 16
[2017-01-09] MEDS: VANCOMYCIN 1.25 GM in SOD CHLORIDE 0.9% 250 ML IVPB SCH (03:41)
[2017-01-09 08:00] VITALS: BP 119/82; RESP 21
[2017-01-09] MEDS: SENNA TAB PO SCH ×2 (08:09→20:17)
--- NOTE | 2017-01-09 11:54 | PN ---
Date/Time of Note Date/Time of Note DATE: 01/09/17 TIME: 11:50 Assessment/Plan VTE Prophylaxis VTE Prophylaxis Intervention: other Lines/Catheters IV Catheter Type (from Nrsg): Saline Lock Urinary Cath still in place: No Assessment/Plan Assessment/Plan -Abscess, perineum - SP I& D PERINEUM ABSCESS - DILAUDID FOR PAIN -Sepsis - per ID Consult- Dr Mendiola - soledad Hemorrhoidectomy - Current smoker - SMOKING CESSATION\ Dw Dr Arredondo Subjective 24 Hr Interval Summary Free Text/Dictation 1115- For PICC placement today. c/o perineal pain, afebrile, dw staff ENT: pain Cardiovascular: no complaints Gastrointestinal: no complaints Genitourinary: other (perineal pain) Musculoskeletal: no complaints Skin: no complaints Neurologic: no complaints Exam/Review of Systems Vital Signs Vitals Vital Signs Date Time Temp Pulse Resp B/P Pulse Ox O2 Delivery O2 Flow Rate FiO2 01/09/17 08:00 98.1 86 21 119/82 97 Intake and Output 01/08/17 01/08/17 01/09/17 15:00 23:00 07:00 Intake Total 300 ml 980 ml 650 ml Balance 300 ml 980 ml 650 ml Exam Constitutional: alert, oriented, well developed Respiratory: clear to auscultation, normal air movement Cardiovascular: nl pulses, regular rate and rhythm Gastrointestinal: non-tender, soft Musculoskeletal: nl extremities to inspection Extremities: normal pulses Neurological: nl mental status, nl speech Skin: other Results Result Diagram: 01/08/17 0515 01/08/17 0515 Results 24 hrs Laboratory Tests Test 01/08/17 19:01 Vancomycin Level Trough 17.1 Medications Medications Current Medications Acetaminophen (Tylenol Tab) 650 mg Q6H PRN PO PAIN AND OR ELEVATED TEMP Last administered on 01/04/17 16:53; Admin Dose 650 MG; Start 01/04/17 at 01:30 Hydromorphone HCl (Dilaudid) 1 mg Q3H PRN IV PAIN Last administered on 21:08; Admin Dose 1 MG; Start 01/04/17 at 01:30 Senna (Senokot) 1 tab BID PO Last administered on 01/09/17 08:09; Admin Dose 1 TAB; Start 01/04/17 at 21:00 Acetaminophen/ Hydrocodone Bitart ([place] (5/325)) 1 tab Q6H PRN PO PAIN LEVEL 6 -10 Last administered on 01/05/17 09:25; Admin Dose 1 TAB; Start 01/04/17 at 22: 30 Ondansetron HCl (Zofran Inj) 4 mg Q6H PRN IV NAUSEA AND/OR VOMITING; Start at 22:30 Acetaminophen/ Hydrocodone Bitart 2 tab 2 tab Q4H PRN PO MODERATE PAIN LEVEL 4- 6; Start 01/04/17 at 22:30 Ertapenem 1 gm/ Sodium Chloride 100 ml @ 200 mls/hr Q24H IVPB Last administered on 01/08/17 23:36; Admin Dose 200 MLS/HR; Start 01/08/17 at 20:00 Vancomycin HCl (Vancocin) 250 ml @ 125 mls/hr Q8H IVPB ; Start 01/09/17 at 12:00 FRITZ FUENTES Jan 09, 2017 11:54
--- NOTE | 2017-01-09 11:55 | PDOCDIS ---
Discharge Instructions CONDITION Patient Condition: Stable HOME CARE INSTRUCTIONS: Diet Instructions: RegularSpecial Diet: regular ACTIVITY: Activity Restrictions: Slowly Increase Activity Rest between Activity Avoid heavy lifting Do not operate Machinery Do not operate Power Tool Avoid Heavy Housework Bathing Restrictions: Sponge Bath FOLLOW UP/APPOINTMENTS Follow-up Plan - IV ertapenem 1 gram daily for 10 days after discharge. - Pt was instructed to get an PMD as he does not have a PMD and FU x 1 week - f/u with an ID as recommended - Weekly CBC and BMP while Pt's on IV antibiotic - FU with your Primary MD - Repeat CT prior to cessation of his antibiotic. - d/w dR Ophelia Rooney /Pt/STAFF FRITZ FUENTES Jan 09, 2017 11:55
[2017-01-09] MEDS ORDERED: VANCOMYCIN 1 GM in NS 250 ML IVPB SCH (12:00)
--- NOTE | 2017-01-09 12:01 | RADRPT ---
PROCEDURE: XR Chest. CLINICAL INDICATION: PICC line placement TECHNIQUE: Single frontal view of the chest was obtained COMPARISON: Chest x-ray from 01/04/2017 FINDINGS: There is a new left-sided PICC line in place with its tip overlying the cavoatrial junction. The heart, mediastinum, and lungs are unchanged. RPTAT: AA IMPRESSION: New left PICC line in appropriate position. Physician Michelle Date Time Electronically viewed and signed by Vipul Samson Physician on 01/09/2017 12:00 RA/
[2017-01-09 14:00] VITALS: BP 112/74; RESP 20
[2017-01-09 14:58] LABS: BASOPHIL # 0.1 10^3/ul (0.0-0.1); BASOPHILS % 0.7 % (0.0-2.0); EOSINOPHILS # 0.2 10^3/ul (0.0-0.5); EOSINOPHILS % 1.7 % (0.0-7.0); HEMATOCRIT 41.2 % (42.0-52.0); HEMOGLOBIN 13.4 g/dl (14.0-18.0); LYMPHOCYTES % 32.8 % (15.0-51.0); MEAN CORPUSCULAR HEMOGLOBIN 26.9 pg (29.0-33.0); MEAN CORPUSCULAR HGB CONC 32.5 g/dl (32.0-37.0); MEAN CORPUSCULAR VOLUME 82.7 fl (82.0-101.0); MEAN PLATELET VOLUME 11.3 fl (7.4-10.4); MONOCYTE # 0.7 10^3/ul (0.3-0.9); PLATELET COUNT 348 10^3/UL (140-415); RED BLOOD COUNT 4.98 10^6/ul (4.70-6.10); RED CELL DISTRIBUTION WIDTH 13.6 % (11.5-14.5); WHITE BLOOD COUNT 9.2 10^3/ul (4.8-10.8)
[2017-01-09 15:21] LABS: CALCIUM 8.9 mg/dl (8.4-10.2); CREATININE 0.85 mg/dl (0.61-1.24); POTASSIUM 3.7 mmol/L (3.5-5.1)
--- NOTE | 2017-01-09 19:02 | CONS ---
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 - h/o perineal abscess s/p I&D in 07/2016. Cx grew bacteroides, gamma hemolytic strep and ESBL+E. coli. CoNS likely a colonizer - scrotal pain, likely referred pain. No e/o scrotal abscess on the physical exam - diverticulosis recommendations - ordered CT abd/pel in the morning to r/o residual abscess - if CT showed no more residual abscess. I recommend IV ertapenem 1 gram daily for 10 days after discharge. If CT showed residual abscess, Pt may need more debridement management d/w Pt, his and RN Problems: Consultation Date/Type/Reason Admit Date/Time Jan 03, 2017 at 22:59 Initial Consult Date 01/05/17 Type of Consultation: Infectious Disease Referring Provider: FRITZ FUENTES 24 HR Interval Summary Constitutional: no complaints Detailed Summary Eyes: no complaints ENT: no complaints Respiratory: no complaints Cardiovascular: no complaints Gastrointestinal: pain (rated 7 on the 1-10 scale), No diarrhea Genitourinary: no complaints Musculoskeletal: no complaints Skin: no complaints Neurologic: no complaints Exam/Review of Systems Vital Signs Vitals Vital Signs Date Time Temp Pulse Resp B/P Pulse Ox O2 Delivery O2 Flow Rate FiO2 01/09/17 14:00 97.8 85 20 112/74 99 Intake and Output 01/08/17 01/08/17 01/09/17 15:00 23:00 07:00 Intake Total 300 ml 980 ml 650 ml Balance 300 ml 980 ml 650 ml Exam Constitutional: alert, oriented, well developed Psych: nl mood/affect, no complaints Head: atraumatic, normocephalic Eyes: nl conjunctiva, nl lids ENMT: nl external ears & nose Neck: supple Respiratory: clear to auscultation, normal air movement Cardiovascular: nl pulses, regular rate and rhythm Gastrointestinal: non-tender, soft Musculoskeletal: nl extremities to inspection Extremities: No edema 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, nl mental status, nl speech Skin: nl turgor Results Result Diagram: 01/09/17 1402 01/09/17 1402 Results 24 hrs Laboratory Tests Test 01/08/17 19:01 01/09/17 14:02 Vancomycin Level Trough 17.1 White Blood Count 9.2 Red Blood Count 4.98 Hemoglobin 13.4 L Hematocrit 41.2 L Mean Corpuscular Volume 82.7 Mean Corpuscular Hemoglobin 26.9 L Mean Corpuscular Hemoglobin Concent 32.5 Red Cell Distribution Width 13.6 Platelet Count 348 Mean Platelet Volume 11.3 H Neutrophils % 55.0 Lymphocytes % 32.8 Monocytes % 8.0 Eosinophils % 1.7 Basophils % 0.7 Nucleated Red Blood Cells % 0.0 Neutrophils # (Manual) 5.1 Lymphocytes # 3.0 H Monocytes # 0.7 Eosinophils # 0.2 Basophils # 0.1 Nucleated Red Blood Cells # 0.0 Sodium Level 140 Potassium Level 3.7 Chloride Level 106 Carbon Dioxide Level 22 Anion Gap 16 Blood Urea Nitrogen 9 Creatinine 0.85 Glucose Level 125 Calcium Level 8.9 Medications Medications Current Medications Acetaminophen (Tylenol Tab) 650 mg Q6H PRN PO PAIN AND OR ELEVATED TEMP Last administered on 01/04/17 16:53; Admin Dose 650 MG; Start 01/04/17 at 01:30 Hydromorphone HCl (Dilaudid) 1 mg Q3H PRN IV PAIN Last administered on 21:08; Admin Dose 1 MG; Start 01/04/17 at 01:30 Senna (Senokot) 1 tab BID PO Last administered on 01/09/17 08:09; Admin Dose 1 TAB; Start 01/04/17 at 21:00 Acetaminophen/ Hydrocodone Bitart ([place] (5/325)) 1 tab Q6H PRN PO PAIN LEVEL 6 -10 Last administered on 01/05/17 09:25; Admin Dose 1 TAB; Start 01/04/17 at 22: 30 Ondansetron HCl (Zofran Inj) 4 mg Q6H PRN IV NAUSEA AND/OR VOMITING; Start at 22:30 Acetaminophen/ Hydrocodone Bitart 2 tab 2 tab Q4H PRN PO MODERATE PAIN LEVEL 4- 6; Start 01/04/17 at 22:30 Ertapenem/Sodium Chloride (Invanz/NS) 100 ml @ 200 mls/hr Q24H IVPB Last administered on 01/08/17 23:36; Admin Dose 200 MLS/HR; Start 01/08/17 at 20:00 IV Flush (NS 10 ml) 10 ml PRN PRN IV IV PROTOCOL; Start 01/09/17 at 12:00 TAMMY VERDUGO M.D. Jan 09, 2017 19:02
[2017-01-09] MEDS: ERTAPENEM SODIUM 1 GM in SOD CHLORIDE 0.9% 100 ML IVPB SCH (20:17)
[2017-01-09 20:34] VITALS: BP 131/78; RESP 18
[2017-01-10 02:49] VITALS: BP 119/66; RESP 18
[2017-01-10 06:55] LABS: BASOPHIL # 0.1 10^3/ul (0.0-0.1); BASOPHILS % 0.6 % (0.0-2.0); EOSINOPHILS # 0.2 10^3/ul (0.0-0.5); EOSINOPHILS % 1.7 % (0.0-7.0); HEMATOCRIT 41.5 % (42.0-52.0); HEMOGLOBIN 13.2 g/dl (14.0-18.0); LYMPHOCYTES # 3.2 10^3/ul (0.8-2.9); LYMPHOCYTES % 29.5 % (15.0-51.0); MEAN CORPUSCULAR HEMOGLOBIN 26.3 pg (29.0-33.0); MEAN CORPUSCULAR HGB CONC 31.8 g/dl (32.0-37.0); MEAN CORPUSCULAR VOLUME 82.8 fl (82.0-101.0); MEAN PLATELET VOLUME 11.1 fl (7.4-10.4); MONOCYTE # 0.8 10^3/ul (0.3-0.9); MONOCYTES % 7.6 % (0.0-11.0); NEUTROPHILS % 58.5 % (39.0-77.0); PLATELET COUNT 336 10^3/UL (140-415); RED BLOOD COUNT 5.01 10^6/ul (4.70-6.10); RED CELL DISTRIBUTION WIDTH 13.9 % (11.5-14.5); WHITE BLOOD COUNT 10.9 10^3/ul (4.8-10.8)
[2017-01-10 07:31] LABS: CALCIUM 9.2 mg/dl (8.4-10.2); CREATININE 0.8 mg/dl (0.61-1.24); POTASSIUM 3.8 mmol/L (3.5-5.1)
[2017-01-10] MEDS ORDERED: IOHEXOL 300MG/ML 150 ML BTL ONE (07:56)
[2017-01-10] MEDS ORDERED: SOD CHLORIDE 0.9% 100 ML ONE (07:56)
[2017-01-10] MEDS: SENNA TAB PO SCH ×2 (08:57→21:00)
[2017-01-10 09:01] VITALS: BP 95/59; RESP 20
--- NOTE | 2017-01-10 10:49 | RADRPT ---
PROCEDURE: CT Abdomen and Pelvis with Contrast CLINICAL INDICATION: Persistent pain and rectum, sepsis TECHNIQUE: Transaxial images were obtained through the abdomen and pelvis on a multi-slice scanner following the intravenous administration of 100 cc of Omnipaque-300 contrast. No oral contrast had previously been given. Sagittal and coronal re-formations were subsequently reconstructed. One or more of the following dose reduction techniques were used: - Automated exposure control. - Adjustment of the mA and/or kV according to patient size. - Use of iterative reconstruction technique. Radiation dose: CTDIvol = 17.55 mGy; DLP = 1107.87 mGy-cm. COMPARISON: 01/03/2017 FINDINGS: Lung bases: The visualized lung bases appear unremarkable. There has been interval development of a trace of pericardial effusion seen anteriorly. Liver: The liver remains mildly enlarged and fatty infiltrated with no focal lesion aside from a per sistent calcification within the superior anterior right lobe compatible with a granuloma. Gallbladder: The wall is not thickened. No radiopaque stones are identified. Bile ducts: The intra and extrahepatic bile ducts are normal in caliber. Pancreas: Appears normal with no mass or inflammation evident. Spleen: Normal in size with no focal lesion. Adrenals: Normal with no mass identified. Kidneys, ureters and bladder: The kidneys enhance normally and are normal in size and there is no ma ss, pathological calcification, or hydronephrosis evident. There is no perinephric stranding. The ur eters are normal in caliber and no ureteroliths are identified. The bladder appears unremarkable. Reproductive organs: Unremarkable. Stomach, bowel, and mesentery: The stomach remains unremarkable. Scattered diverticuli are seen to t he colon but there is no evidence of bowel obstruction or inflammation. Appendix: A normal vermiform appendix is evident. Peritoneum: There is no free intraperitoneal fluid or air. Aorta: Normal in caliber with no aneurysmal dilatation. IVC: Unremarkable. Lymph nodes: A few small shoddy retroperitoneal nodes are evident. Osseous structures: Degenerative disc and endplate changes are again seen at L5-S1. Soft tissues: The abscess cavity pleural previously seen within the left perineum has significantly decreased in size measuring 3.2 x 2.9 x 1.2 cm in diameter. There is again stranding in the adjacen t fat and a tract is again seen to extend through the skin surface of the medial left buttock. There is again diastases recti. IMPRESSION: 1. When compared to the previous CT of 01/03/2017, the left perineal abscess cavity has considerabl y decreased in size now measuring 3.2 x 2.9 x 1.2 cm. A tract is again seen to the skin surface at t he medial left buttock compatible with the cutaneous fistula. There is again stranding in the adjace nt fat. Again no fistula tract is evident to the rectum or bowel. 2. Scattered colonic diverticuli are again noted and again there is no evidence of bowel obstructio n or inflammation with a normal vermiform appendix. 3. There is no free intraperitoneal fluid or air. 4. Persistent mild hepatomegaly with diffuse fatty infiltration along with a calcified granuloma lo cated within the anterior superior right lobe. 5. Diastases recti is again noted. Physician Jude Date Time Electronically viewed and signed by Physician Jude on 01/10/2017 10:49 /
--- NOTE | 2017-01-10 12:18 | PN ---
Date/Time of Note Date/Time of Note DATE: 01/10/17 TIME: 12:13 Assessment/Plan Lines/Catheters IV Catheter Type (from Nrsg): PICC Line Urinary Cath still in place: No Assessment/Plan Assessment/Plan -Abscess, perineum - SP I& D PERINEUM ABSCESS - DILAUDID FOR PAIN -Sepsis - per ID Consult- Dr Mendiola - CTabd/pelvis pending -fu - sp Hemorrhoidectomy - Current smoker - SMOKING CESSATION\ Dw Dr Arredondo Subjective 24 Hr Interval Summary Respiratory: no complaints Cardiovascular: no complaints Gastrointestinal: no complaints Genitourinary: other Musculoskeletal: no complaints (perineal abcess) Exam/Review of Systems Vital Signs Vitals Vital Signs Date Time Temp Pulse Resp B/P Pulse Ox O2 Delivery O2 Flow Rate FiO2 01/10/17 09:01 97.6 82 20 95/59 97 Intake and Output 01/09/17 01/09/17 01/10/17 15:00 23:00 07:00 Intake Total 250 ml 1450 ml 720 ml Balance 250 ml 1450 ml 720 ml Exam Constitutional: alert, oriented, well developed Respiratory: clear to auscultation, normal air movement Cardiovascular: nl pulses, regular rate and rhythm Gastrointestinal: non-tender, soft Musculoskeletal: nl extremities to inspection Extremities: normal pulses Neurological: nl mental status, nl speech Results Result Diagram: 01/10/17 0610 01/10/17 0610 Results 24 hrs Laboratory Tests Test 01/09/17 14:02 01/10/17 06:10 White Blood Count 9.2 10.9 H Red Blood Count 4.98 5.01 Hemoglobin 13.4 L 13.2 L Hematocrit 41.2 L 41.5 L Mean Corpuscular Volume 82.7 82.8 Mean Corpuscular Hemoglobin 26.9 L 26.3 L Mean Corpuscular Hemoglobin Concent 32.5 31.8 L Red Cell Distribution Width 13.6 13.9 Platelet Count 348 336 Mean Platelet Volume 11.3 H 11.1 H Neutrophils % 55.0 58.5 Lymphocytes % 32.8 29.5 Monocytes % 8.0 7.6 Eosinophils % 1.7 1.7 Basophils % 0.7 0.6 Nucleated Red Blood Cells % 0.0 0.0 Neutrophils # (Manual) 5.1 6.3 Lymphocytes # 3.0 H 3.2 H Monocytes # 0.7 0.8 Eosinophils # 0.2 0.2 Basophils # 0.1 0.1 Nucleated Red Blood Cells # 0.0 0.0 Sodium Level 140 139 Potassium Level 3.7 3.8 Chloride Level 106 106 Carbon Dioxide Level 22 26 Anion Gap 16 11 Blood Urea Nitrogen 9 7 Creatinine 0.85 0.80 Glucose Level 125 100 Calcium Level 8.9 9.2 Medications Medications Current Medications Acetaminophen (Tylenol Tab) 650 mg Q6H PRN PO PAIN AND OR ELEVATED TEMP Last administered on 01/04/17 16:53; Admin Dose 650 MG; Start 01/04/17 at 01:30 Hydromorphone HCl (Dilaudid) 1 mg Q3H PRN IV PAIN Last administered on 21:08; Admin Dose 1 MG; Start 01/04/17 at 01:30 Senna (Senokot) 1 tab BID PO Last administered on 01/09/17 20:17; Admin Dose 1 TAB; Start 01/04/17 at 21:00 Acetaminophen/ Hydrocodone Bitart ([place] (5/325)) 1 tab Q6H PRN PO PAIN LEVEL 6 -10 Last administered on 01/05/17 09:25; Admin Dose 1 TAB; Start 01/04/17 at 22: 30 Ondansetron HCl (Zofran Inj) 4 mg Q6H PRN IV NAUSEA AND/OR VOMITING; Start at 22:30 Acetaminophen/ Hydrocodone Bitart 2 tab 2 tab Q4H PRN PO MODERATE PAIN LEVEL 4- 6; Start 01/04/17 at 22:30 Ertapenem/Sodium Chloride (Invanz/NS) 100 ml @ 200 mls/hr Q24H IVPB Last administered on 01/09/17 20:17; Admin Dose 200 MLS/HR; Start 01/08/17 at 20:00 IV Flush (NS 10 ml) 10 ml PRN PRN IV IV PROTOCOL Last administered on 01/10/17 08:53; Admin Dose 10 ML; Start 01/09/17 at 12:00 FRITZ FUENTES Jan 10, 2017 12:18
--- NOTE | 2017-01-10 13:53 | CONS ---
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 CT on 01/10/2017 showed much improvement - h/o perineal abscess s/p I&D in 07/2016. Cx grew bacteroides, gamma hemolytic strep and ESBL+E. coli. CoNS likely a colonizer - scrotal pain, likely referred pain. No e/o scrotal abscess on the physical exam - diverticulosis recommendations - I recommend IV ertapenem 1 gram daily for 10 days after discharge. please order weekly CBC and BMP while Pt's on IV antibiotic whose results to be reviewed by the supervising physician - I instructed Pt to get an PMD (Pt does not have a PMD) and f/u with an ID specialist who is contracted with his insurance management d/w Pt, his RN. 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 FINANCE INSTRUCTOR Florencia Problems: Consultation Date/Type/Reason Admit Date/Time Jan 03, 2017 at 22:59 Initial Consult Date 01/05/17 Type of Consultation: Infectious Disease Referring Provider: FRITZ FUENTES 24 HR Interval Summary Constitutional: no complaints Detailed Summary Eyes: no complaints ENT: no complaints Respiratory: no complaints Cardiovascular: no complaints Gastrointestinal: other (+pain in the perianal area) Genitourinary: no complaints Musculoskeletal: no complaints Skin: no complaints Neurologic: no complaints Exam/Review of Systems Vital Signs Vitals Vital Signs Date Time Temp Pulse Resp B/P Pulse Ox O2 Delivery O2 Flow Rate FiO2 01/10/17 09:01 97.6 82 20 95/59 97 Intake and Output 01/09/17 01/09/17 01/10/17 15:00 23:00 07:00 Intake Total 250 ml 1450 ml 720 ml Balance 250 ml 1450 ml 720 ml Exam Constitutional: alert, oriented, well developed Psych: nl mood/affect, no complaints Head: atraumatic, normocephalic Eyes: nl conjunctiva, nl lids ENMT: nl external ears & nose, nl nasal mucosa & septum Neck: supple Respiratory: clear to auscultation, normal air movement Cardiovascular: nl pulses, regular rate and rhythm Gastrointestinal: soft Musculoskeletal: nl extremities to inspection Extremities: No edema 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, nl mental status, nl speech Skin: nl turgor Results Result Diagram: 01/10/17 0610 01/10/17 0610 Results 24 hrs Laboratory Tests Test 01/09/17 14:02 01/10/17 06:10 White Blood Count 9.2 10.9 H Red Blood Count 4.98 5.01 Hemoglobin 13.4 L 13.2 L Hematocrit 41.2 L 41.5 L Mean Corpuscular Volume 82.7 82.8 Mean Corpuscular Hemoglobin 26.9 L 26.3 L Mean Corpuscular Hemoglobin Concent 32.5 31.8 L Red Cell Distribution Width 13.6 13.9 Platelet Count 348 336 Mean Platelet Volume 11.3 H 11.1 H Neutrophils % 55.0 58.5 Lymphocytes % 32.8 29.5 Monocytes % 8.0 7.6 Eosinophils % 1.7 1.7 Basophils % 0.7 0.6 Nucleated Red Blood Cells % 0.0 0.0 Neutrophils # (Manual) 5.1 6.3 Lymphocytes # 3.0 H 3.2 H Monocytes # 0.7 0.8 Eosinophils # 0.2 0.2 Basophils # 0.1 0.1 Nucleated Red Blood Cells # 0.0 0.0 Sodium Level 140 139 Potassium Level 3.7 3.8 Chloride Level 106 106 Carbon Dioxide Level 22 26 Anion Gap 16 11 Blood Urea Nitrogen 9 7 Creatinine 0.85 0.80 Glucose Level 125 100 Calcium Level 8.9 9.2 Medications Medications Current Medications Acetaminophen (Tylenol Tab) 650 mg Q6H PRN PO PAIN AND OR ELEVATED TEMP Last administered on 01/04/17 16:53; Admin Dose 650 MG; Start 01/04/17 at 01:30 Hydromorphone HCl (Dilaudid) 1 mg Q3H PRN IV PAIN Last administered on 21:08; Admin Dose 1 MG; Start 01/04/17 at 01:30 Senna (Senokot) 1 tab BID PO Last administered on 01/09/17 20:17; Admin Dose 1 TAB; Start 01/04/17 at 21:00 Acetaminophen/ Hydrocodone Bitart ([place] (5/325)) 1 tab Q6H PRN PO PAIN LEVEL 6 -10 Last administered on 01/05/17 09:25; Admin Dose 1 TAB; Start 01/04/17 at 22: 30 Ondansetron HCl (Zofran Inj) 4 mg Q6H PRN IV NAUSEA AND/OR VOMITING; Start at 22:30 Acetaminophen/ Hydrocodone Bitart 2 tab 2 tab Q4H PRN PO MODERATE PAIN LEVEL 4- 6; Start 01/04/17 at 22:30 Ertapenem/Sodium Chloride (Invanz/NS) 100 ml @ 200 mls/hr Q24H IVPB Last administered on 01/09/17 20:17; Admin Dose 200 MLS/HR; Start 01/08/17 at 20:00 IV Flush (NS 10 ml) 10 ml PRN PRN IV IV PROTOCOL Last administered on 01/10/17 08:53; Admin Dose 10 ML; Start 01/09/17 at 12:00 TAMMY VERDUGO M.D. Jan 10, 2017 13:53
--- NOTE | 2017-01-10 14:00 | CONS ---
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 CT on 01/10/2017 showed much improvement - h/o perineal abscess s/p I&D in 07/2016. Cx grew bacteroides, gamma hemolytic strep and ESBL+E. coli. CoNS likely a colonizer - scrotal pain, likely referred pain. No e/o scrotal abscess on the physical exam - diverticulosis REVISED recommendations - I recommend IV ertapenem 1 gram daily for 10 days after discharge. please order weekly CBC and BMP while Pt's on IV antibiotic whose results to be reviewed by the supervising physician. I recommend repeat CT prior to cessation of his antibiotic. - I instructed Pt to get an PMD (Pt does not have a PMD) and f/u with an ID specialist who is contracted with his insurance management d/w Pt, his RN. Informed MANAGER PATHOLOGY [place] Problems: Consultation Date/Type/Reason Admit Date/Time Jan 03, 2017 at 22:59 Initial Consult Date 01/05/17 Type of Consultation: Infectious Disease Referring Provider: FRITZ FUENTES Exam/Review of Systems Vital Signs Vitals Vital Signs Date Time Temp Pulse Resp B/P Pulse Ox O2 Delivery O2 Flow Rate FiO2 01/10/17 09:01 97.6 82 20 95/59 97 Intake and Output 01/09/17 01/09/17 01/10/17 15:00 23:00 07:00 Intake Total 250 ml 1450 ml 720 ml Balance 250 ml 1450 ml 720 ml Results Result Diagram: 01/10/17 0610 01/10/17 0610 Results 24 hrs Laboratory Tests Test 01/09/17 14:02 01/10/17 06:10 White Blood Count 9.2 10.9 H Red Blood Count 4.98 5.01 Hemoglobin 13.4 L 13.2 L Hematocrit 41.2 L 41.5 L Mean Corpuscular Volume 82.7 82.8 Mean Corpuscular Hemoglobin 26.9 L 26.3 L Mean Corpuscular Hemoglobin Concent 32.5 31.8 L Red Cell Distribution Width 13.6 13.9 Platelet Count 348 336 Mean Platelet Volume 11.3 H 11.1 H Neutrophils % 55.0 58.5 Lymphocytes % 32.8 29.5 Monocytes % 8.0 7.6 Eosinophils % 1.7 1.7 Basophils % 0.7 0.6 Nucleated Red Blood Cells % 0.0 0.0 Neutrophils # (Manual) 5.1 6.3 Lymphocytes # 3.0 H 3.2 H Monocytes # 0.7 0.8 Eosinophils # 0.2 0.2 Basophils # 0.1 0.1 Nucleated Red Blood Cells # 0.0 0.0 Sodium Level 140 139 Potassium Level 3.7 3.8 Chloride Level 106 106 Carbon Dioxide Level 22 26 Anion Gap 16 11 Blood Urea Nitrogen 9 7 Creatinine 0.85 0.80 Glucose Level 125 100 Calcium Level 8.9 9.2 Medications Medications Current Medications Acetaminophen (Tylenol Tab) 650 mg Q6H PRN PO PAIN AND OR ELEVATED TEMP Last administered on 01/04/17 16:53; Admin Dose 650 MG; Start 01/04/17 at 01:30 Hydromorphone HCl (Dilaudid) 1 mg Q3H PRN IV PAIN Last administered on 21:08; Admin Dose 1 MG; Start 01/04/17 at 01:30 Senna (Senokot) 1 tab BID PO Last administered on 01/09/17 20:17; Admin Dose 1 TAB; Start 01/04/17 at 21:00 Acetaminophen/ Hydrocodone Bitart ([place] (5/325)) 1 tab Q6H PRN PO PAIN LEVEL 6 -10 Last administered on 01/05/17 09:25; Admin Dose 1 TAB; Start 01/04/17 at 22: 30 Ondansetron HCl (Zofran Inj) 4 mg Q6H PRN IV NAUSEA AND/OR VOMITING; Start at 22:30 Acetaminophen/ Hydrocodone Bitart 2 tab 2 tab Q4H PRN PO MODERATE PAIN LEVEL 4- 6; Start 01/04/17 at 22:30 Ertapenem/Sodium Chloride (Invanz/NS) 100 ml @ 200 mls/hr Q24H IVPB Last administered on 01/09/17 20:17; Admin Dose 200 MLS/HR; Start 01/08/17 at 20:00 IV Flush (NS 10 ml) 10 ml PRN PRN IV IV PROTOCOL Last administered on 01/10/17 08:53; Admin Dose 10 ML; Start 01/09/17 at 12:00 TAMMY VERDUGO M.D. Jan 10, 2017 14:00
[2017-01-10] MEDS: ERTAPENEM SODIUM 1 GM in SOD CHLORIDE 0.9% 100 ML IVPB SCH (17:47)
[2017-01-10 18:37] VITALS: BP 99/60; RESP 18
[2017-01-10 21:07] VITALS: BP 103/60; RESP 18
[2017-01-11 02:49] VITALS: BP 108/68; RESP 18
[2017-01-11 05:56] LABS: BASOPHIL # 0.1 10^3/ul (0.0-0.1); BASOPHILS % 0.6 % (0.0-2.0); EOSINOPHILS # 0.2 10^3/ul (0.0-0.5); HEMATOCRIT 42.6 % (42.0-52.0); HEMOGLOBIN 13.4 g/dl (14.0-18.0); LYMPHOCYTES # 3.6 10^3/ul (0.8-2.9); LYMPHOCYTES % 33.4 % (15.0-51.0); MEAN CORPUSCULAR HEMOGLOBIN 25.9 pg (29.0-33.0); MEAN CORPUSCULAR HGB CONC 31.5 g/dl (32.0-37.0); MEAN CORPUSCULAR VOLUME 82.2 fl (82.0-101.0); MEAN PLATELET VOLUME 11.1 fl (7.4-10.4); MONOCYTE # 0.8 10^3/ul (0.3-0.9); MONOCYTES % 7.5 % (0.0-11.0); NEUTROPHILS % 54.4 % (39.0-77.0); PLATELET COUNT 356 10^3/UL (140-415); RED BLOOD COUNT 5.18 10^6/ul (4.70-6.10); RED CELL DISTRIBUTION WIDTH 13.9 % (11.5-14.5); WHITE BLOOD COUNT 10.7 10^3/ul (4.8-10.8)
[2017-01-11 06:18] LABS: CALCIUM 9.5 mg/dl (8.4-10.2); CREATININE 0.87 mg/dl (0.61-1.24); POTASSIUM 4.1 mmol/L (3.5-5.1)
[2017-01-11] MEDS: SENNA TAB PO SCH (09:17)
[2017-01-11 12:34] VITALS: BP 104/60; RESP 18
--- NOTE | 2017-01-11 13:06 | PN ---
Date/Time of Note Date/Time of Note DATE: 01/11/17 TIME: 13:04 Assessment/Plan VTE Prophylaxis VTE Prophylaxis Intervention: other Lines/Catheters IV Catheter Type (from Nrsg): PICC Line Central line still needed: Yes Urinary Cath still in place: No Assessment/Plan Assessment/Plan -Abscess, perineum - SP I& D PERINEUM ABSCESS - DILAUDID FOR PAIN -Sepsis - per ID Consult- Dr Mendiola - CTabd/pelvis pending -fu - sp Hemorrhoidectomy - Current smoker - SMOKING CESSATION\ Plan for DC today, awaiting dr Mendiola to adjust antibiotic. Luis Arredondo Subjective 24 Hr Interval Summary Respiratory: no complaints Cardiovascular: no complaints Gastrointestinal: no complaints Genitourinary: no complaints Musculoskeletal: no complaints Exam/Review of Systems Vital Signs Vitals Vital Signs Date Time Temp Pulse Resp B/P Pulse Ox O2 Delivery O2 Flow Rate FiO2 01/11/17 12:34 97.8 78 18 104/60 96 Intake and Output 01/10/17 01/10/17 01/11/17 15:00 23:00 07:00 Intake Total 1020 ml 640 ml Balance 1020 ml 640 ml Exam Constitutional: alert, oriented, well developed Respiratory: clear to auscultation, normal air movement Gastrointestinal: non-tender, soft Musculoskeletal: nl extremities to inspection Extremities: normal pulses Neurological: nl mental status, nl speech Results Result Diagram: 01/11/17 0500 01/11/17 0459 Results 24 hrs Laboratory Tests Test 01/11/17 04:59 01/11/17 05:00 Sodium Level 142 Potassium Level 4.1 Chloride Level 107 Carbon Dioxide Level 26 Anion Gap 13 Blood Urea Nitrogen 10 Creatinine 0.87 Glucose Level 106 Calcium Level 9.5 White Blood Count 10.7 Red Blood Count 5.18 Hemoglobin 13.4 L Hematocrit 42.6 Mean Corpuscular Volume 82.2 Mean Corpuscular Hemoglobin 25.9 L Mean Corpuscular Hemoglobin Concent 31.5 L Red Cell Distribution Width 13.9 Platelet Count 356 Mean Platelet Volume 11.1 H Neutrophils % 54.4 Lymphocytes % 33.4 Monocytes % 7.5 Eosinophils % 2.0 Basophils % 0.6 Nucleated Red Blood Cells % 0.0 Neutrophils # (Manual) 5.9 Lymphocytes # 3.6 H Monocytes # 0.8 Eosinophils # 0.2 Basophils # 0.1 Nucleated Red Blood Cells # 0.0 Medications Medications Current Medications Acetaminophen (Tylenol Tab) 650 mg Q6H PRN PO PAIN AND OR ELEVATED TEMP Last administered on 01/04/17 16:53; Admin Dose 650 MG; Start 01/04/17 at 01:30 Hydromorphone HCl (Dilaudid) 1 mg Q3H PRN IV PAIN Last administered on 21:08; Admin Dose 1 MG; Start 01/04/17 at 01:30 Senna (Senokot) 1 tab BID PO Last administered on 01/11/17 09:17; Admin Dose 1 TAB; Start 01/04/17 at 21:00 Acetaminophen/ Hydrocodone Bitart ([place] (5/325)) 1 tab Q6H PRN PO PAIN LEVEL 6 -10 Last administered on 01/05/17 09:25; Admin Dose 1 TAB; Start 01/04/17 at 22: 30 Ondansetron HCl (Zofran Inj) 4 mg Q6H PRN IV NAUSEA AND/OR VOMITING; Start at 22:30 Acetaminophen/ Hydrocodone Bitart 2 tab 2 tab Q4H PRN PO MODERATE PAIN LEVEL 4- 6; Start 01/04/17 at 22:30 Ertapenem/Sodium Chloride (Invanz/NS) 100 ml @ 200 mls/hr Q24H IVPB Last administered on 01/10/17 17:47; Admin Dose 200 MLS/HR; Start 01/08/17 at 20:00 IV Flush (NS 10 ml) 10 ml PRN PRN IV IV PROTOCOL Last administered on 01/10/17 17:54; Admin Dose 10 ML; Start 01/09/17 at 12:00 FRITZ FUENTES Jan 11, 2017 13:06
[2017-01-11] MEDS ORDERED: METR500T PO ×2 (13:56→15:56)
[2017-01-11] MEDS ORDERED: HYDR-906 PO (13:56)
[2017-01-11] MEDS ORDERED: GENTAMICIN IV PER PHARMACY XX SCH ×2 (16:00→16:30)
--- NOTE | 2017-01-11 16:37 | RADRPT ---
PROCEDURE: XR Lumbar Spine. CLINICAL INDICATION: Lumbar spine pain. TECHNIQUE: AP, lateral, and cone-down lateral view of the lumbar spine were obtained. COMPARISON: No prior studies are available for comparison. FINDINGS: The alignment of the lumbar spine is within normal limits. There are anterior osteophytes at the L5 -S1 with severe narrowing of the intervertebral disc spaces at this level. There are moderate assoc iated discogenic endplate changes at L5-S1. The vertebral body heights and marrow density are normal in appearance. There is moderate to severe facet spondylosis at L5-S1 with suggestion of neural fo raminal narrowing at this level. The remaining neural foramina appear patent. The paraspinal soft tissues unremarkable. There is no evidence of fracture. The posterior elements are unremarkable. IMPRESSION: 1. 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 2. Moderate facet spondylosis at L5-S1 with suggestion of neural foraminal narrowing at this level. 3. No evidence of fracture.. RPTAT: HGAS .David Stewart MD, MD Date Time Electronically viewed and signed by .David Stewart MD, on 01/11/2017 16:37 .S/
--- NOTE | 2017-01-11 16:41 | RADRPT ---
PROCEDURE: XR Knee. CLINICAL INDICATION: Right knee pain. TECHNIQUE: AP and lateral views of the right knee were obtained. The images reviewed on a PACS [employer]. COMPARISON: None. FINDINGS: The distal femur and proximal tibia/fibula are normal in appearance. There is no fracture. The medi al and lateral compartment joint spaces are preserved. There is no abnormal calcification. There i s a small suprapatellar joint effusion. Hoffa's fat pad is normal in appearance. There is normal a ppearance of the patellofemoral joint. The soft tissues are unremarkable. IMPRESSION: 1. Small suprapatellar joint effusion. 2. No evidence of fracture. RPTAT: HGAS .David Stewart MD, MD Date Time Electronically viewed and signed by .David Stewart MD, on 01/11/2017 16:41 .S/
[2017-01-11] MEDS ORDERED: metroNIDAZOLE 500 MG TAB PO SCH (16:55)
[2017-01-11] MEDS ORDERED: GENTAMICIN 400 MG in SOD CHLORIDE 0.9% 100 ML IVPB SCH (19:00)
[2017-01-11 20:59] VITALS: BP 97/59; RESP 18
[2017-01-11 21:00] VITALS: BP 126/80; PULSE 82; RESP 20
--- NOTE | 2017-01-11 21:52 | CONS ---
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 CT on 01/10/2017 showed much improvement - h/o perineal abscess s/p I&D in 07/2016. Cx grew bacteroides, gamma hemolytic strep and ESBL+E. coli. CoNS likely a colonizer - scrotal pain, likely referred pain. No e/o scrotal abscess on the physical exam - diverticulosis recommendations - I recommended IV ertapenem 1 gram daily for 10 days after discharge. However, the caser shoe parts Jennifer informed me earlier today that his insurance only covers gentamicin. Therefore, I recommended gentamicin pharmacy to dose and PO metronidzole 500 mg tid x10 days after discharge. I informed Jennifer and ROMEO Fuentes that I am not contracted with his insurance and therefore instructed them to find a doctor who is contracted with his insurance to order his home health antibiotic order and laboratory. please order weekly CBC and BMP while Pt's on IV antibiotic whose results to be reviewed by the supervising physician. I recommend repeat CT prior to cessation of his antibiotic. - I instructed Pt to get an PMD (Pt does not have a PMD) and f/u with an ID specialist who is contracted with his insurance on 01/10/2017 management d/w Jennifer and ROMEO Fuentes (Note: I am documenting the above; I could not see him in person today because he had been already discharged) Problems: Consultation Date/Type/Reason Admit Date/Time Jan 03, 2017 at 22:59 Initial Consult Date 01/05/17 Type of Consultation: Infectious Disease Referring Provider: FRITZ FUENTES Exam/Review of Systems Vital Signs Vitals Vital Signs Date Time Temp Pulse Resp B/P Pulse Ox O2 Delivery O2 Flow Rate FiO2 01/11/17 20:59 97.9 83 18 97/59 98 Intake and Output 01/10/17 01/10/17 01/11/17 15:00 23:00 07:00 Intake Total 1020 ml 640 ml Balance 1020 ml 640 ml Results Result Diagram: 01/11/17 0500 01/11/17 0459 Results 24 hrs Laboratory Tests Test 01/11/17 04:59 01/11/17 05:00 Sodium Level 142 Potassium Level 4.1 Chloride Level 107 Carbon Dioxide Level 26 Anion Gap 13 Blood Urea Nitrogen 10 Creatinine 0.87 Glucose Level 106 Calcium Level 9.5 White Blood Count 10.7 Red Blood Count 5.18 Hemoglobin 13.4 L Hematocrit 42.6 Mean Corpuscular Volume 82.2 Mean Corpuscular Hemoglobin 25.9 L Mean Corpuscular Hemoglobin Concent 31.5 L Red Cell Distribution Width 13.9 Platelet Count 356 Mean Platelet Volume 11.1 H Neutrophils % 54.4 Lymphocytes % 33.4 Monocytes % 7.5 Eosinophils % 2.0 Basophils % 0.6 Nucleated Red Blood Cells % 0.0 Neutrophils # (Manual) 5.9 Lymphocytes # 3.6 H Monocytes # 0.8 Eosinophils # 0.2 Basophils # 0.1 Nucleated Red Blood Cells # 0.0 Medications Medications Current Medications Acetaminophen (Tylenol Tab) 650 mg Q6H PRN PO PAIN AND OR ELEVATED TEMP Last administered on 01/04/17 16:53; Admin Dose 650 MG; Start 01/04/17 at 01:30 Hydromorphone HCl (Dilaudid) 1 mg Q3H PRN IV PAIN Last administered on 21:08; Admin Dose 1 MG; Start 01/04/17 at 01:30 Senna (Senokot) 1 tab BID PO Last administered on 01/11/17 09:17; Admin Dose 1 TAB; Start 01/04/17 at 21:00 Acetaminophen/ Hydrocodone Bitart ([place] (5/325)) 1 tab Q6H PRN PO PAIN LEVEL 6 -10 Last administered on 01/05/17 09:25; Admin Dose 1 TAB; Start 01/04/17 at 22: 30 Ondansetron HCl (Zofran Inj) 4 mg Q6H PRN IV NAUSEA AND/OR VOMITING; Start at 22:30 Acetaminophen/ Hydrocodone Bitart 2 tab 2 tab Q4H PRN PO MODERATE PAIN LEVEL 4- 6; Start 01/04/17 at 22:30 Ertapenem/Sodium Chloride (Invanz/NS) 100 ml @ 200 mls/hr Q24H IVPB Last administered on 01/10/17 17:47; Admin Dose 200 MLS/HR; Start 01/08/17 at 20:00 IV Flush (NS 10 ml) 10 ml PRN PRN IV IV PROTOCOL Last administered on 01/10/17 17:54; Admin Dose 10 ML; Start 01/09/17 at 12:00 Gentamicin Sulfate (Gentamicin Iv Per Pharmacy) GENTAMICIN ... NOTE XX ; Start 01/11/17 at 16:30 Metronidazole (Flagyl) 500 mg TID PO Last administered on 01/11/17 17:29; Admin Dose 500 MG; Start 01/11/17 at 16:55 TAMMY VERDUGO M.D. Jan 11, 2017 21:52
== END 2017-01-11 21:28 | disposition home or self-care (01) | DRG 854 ==
LOC: FTE 17:19 → PP2 22:59
PROVIDERS: ADMIT Internal Medicine; ATTEND Internal Medicine
PROC: 0D9P0ZZ Drainage of Rectum, Open Approach (ICD-10-PCS; principal; 2017-01-04 15:00)
PROC: 02HV33Z Insertion of Infusion Device into Superior Vena Cava, Percutaneous Approach (ICD-10-PCS; 2017-01-09)
DX: A41.02 Sepsis due to Methicillin resistant Staphylococcus aureus (principal); K61.1 Rectal abscess; I10 Essential (primary) hypertension; F17.210 Nicotine dependence, cigarettes, uncomplicated; N50.82 Scrotal pain; L98.8 Other specified disorders of the skin and subcutaneous tissue; K57.30 Diverticulosis of large intestine without perforation or abscess without bleeding
CPT/HCPCS: 36415; 36569; 71010; 72100; 73560; 74177; 76937; 80048; 80053; 80202; 81001; 82565; 83036; 83605; 83690; 84520; 85025; 85610; 87040; 87070; 87075; 87102; 87116; 93005; 96365; 96375; J0131; J1170; J1335; J1580; J1885; J2175; J2185; J2250; J2270; J2405; J2543; J2710; J2765; J3010; J3370; J3480; J7030; J7040; J7050; Q9967

== ENCOUNTER 2017-03-27 21:37 | Inpatient (IN) | payer BC ==
[~2017-03-27] VITALS: Ht 177.8 cm; Wt 95.2 kg
[~2017-03-27 21:37] MED LIST changes: +HYDR-906 PO; +METR500T PO; -MULT1TAB6 PO
[2017-03-27 22:52] VITALS: Ht 177.8 cm; Wt 95.2 kg
[2017-03-27 22:53] VITALS: BP 118/74; PULSE 107; RESP 18
[2017-03-28] MEDS ORDERED: VANCOMYCIN 1 GM in SOD CHLORIDE 0.9% 250 ML IVPB SCH ×2
[2017-03-28 00:16] VITALS: BP 118/74; RESP 18
[2017-03-28] MEDS: morphine 2 MG INJ IV PRN ×3 (00:24→22:24)
[2017-03-28] MEDS ORDERED: VANCOMYCIN 1 GM in NS 250 ML IVPB SCH (00:30)
[2017-03-28 02:00] VITALS: BP 112/57; RESP 18
[2017-03-28 06:17] LABS: BASOPHIL # 0.1 10^3/ul (0.0-0.1); BASOPHILS % 0.4 % (0.0-2.0); EOSINOPHILS % 0.3 % (0.0-7.0); HEMATOCRIT 40.8 % (42.0-52.0); HEMOGLOBIN 13.3 g/dl (14.0-18.0); LYMPHOCYTES # 2.8 10^3/ul (0.8-2.9); LYMPHOCYTES % 17.8 % (15.0-51.0); MEAN CORPUSCULAR HEMOGLOBIN 26.9 pg (29.0-33.0); MEAN CORPUSCULAR HGB CONC 32.6 g/dl (32.0-37.0); MEAN CORPUSCULAR VOLUME 82.6 fl (82.0-101.0); MEAN PLATELET VOLUME 11.6 fl (7.4-10.4); MONOCYTE # 1.3 10^3/ul (0.3-0.9); MONOCYTES % 8.6 % (0.0-11.0); NEUTROPHIL # 11.2 10^3/ul (1.6-7.5); NEUTROPHILS % 72.6 % (39.0-77.0); PLATELET COUNT 206 10^3/UL (140-415); RED BLOOD COUNT 4.94 10^6/ul (4.70-6.10); RED CELL DISTRIBUTION WIDTH 13.7 % (11.5-14.5); WHITE BLOOD COUNT 15.4 10^3/ul (4.8-10.8)
[2017-03-28 06:54] LABS: CALCIUM 8.5 mg/dl (8.4-10.2); CREATININE 1.1 mg/dl (0.61-1.24); POTASSIUM 3.6 mmol/L (3.5-5.1)
[2017-03-28 07:35] VITALS: BP 95/56; RESP 16
[2017-03-28] MEDS ORDERED: ENOXAPARIN 40 MG/0.4 ML SYG SC SCH (09:00)
--- NOTE | 2017-03-28 12:07 | HP ---
Date/Time of Note Date/Time of Note DATE: 03/28/17 TIME: 11:50 Assessment/Plan VTE Prophylaxis VTE Prophylaxis Intervention: SCD's Lines/Catheters [facility] Saline Lock Urinary Cath still in place: No Assessment/Plan Assessment/Plan -Left perirectal abscess, status post drain drainage on 03/27. Dr. Castano is asked to see patient in a general surgery consultation -Sepsis, continue broad-spectrum antibiotics, obtain culture results of drainage , Dr. Calles is asked to see patient in infection disease consultation -Hypertension Further recommendations based on clinical course. Plan of care is discussed with Dr. Rooney. HPI/ROS Admit Date/Time Admit Date/Time Mar 27, 2017 at 22:41 Hx of Present Illness The patient is a 42-year-old male known to me from previous admission. Patient has a recurrent perirectal abscess, status post multiple drainage, completed treatment with antibiotics in January of this year. Patient was seen by Dr. Castano an outpatient in surgical consultation. Patient underwent colonoscopy with biopsy by Dr. Muse at [facility] on Sunday, 2 days ago. The patient did develop a fever and chills yesterday. He presented to [facility] emergency room patient where he underwent drainage of abscess. Patient noted to have elevated lactate on presentation. Patient was started on broad-spectrum antibiotics and was transferred to the [facility] further care and management. Patient denies any shortness of breath denies any chest pain patient denies any nausea vomiting diarrhea. ROS Per HPI PMH/Family/Social Past Medical History Medical History: hypertension Past Surgical History Status post hemorrhoidectomy by Dr. Medel in 2014 Status post perirectal abscess I&D in 07/2016 and on 01/04/2017. Past Surgical Hx: other Social History Alcohol Use: occasionally Smoking Status: Current every day smoker Drug Use: none Exam/Review of Systems Vital Signs Vitals Vital Signs Date Time Temp Pulse Resp B/P Pulse Ox O2 Delivery O2 Flow Rate FiO2 03/28/17 07:35 98.5 100 16 95/56 98 03/27/17 22:53 Room Air Intake and Output 03/27/17 03/27/17 03/28/17 15:00 23:00 07:00 Intake Total 970 ml Balance 970 ml Exam Constitutional: alert, oriented Head: normocephalic Neck: supple Respiratory: normal air movement Cardiovascular: nl pulses Gastrointestinal: non-tender, soft Extremities: normal pulses Neurological: nl mental status Skin: other (Left perirectal abscess with drained) Labs Result Diagram: 03/28/1740 03/28/17 0540 Medications Medications Current Medications Morphine Sulfate (morphine) 2 mg Q4H PRN IV PAIN Last administered on 06:52; Admin Dose 2 MG; Start 03/28/17 at 00:00 Ondansetron HCl (Zofran Inj) 4 mg Q6H PRN IV NAUSEA AND/OR VOMITING; Start at 00:00 Enoxaparin Sodium (Lovenox) 40 mg DAILY SC Last administered on 03/28/17 09: 01; Admin Dose 40 MG; Start 03/28/17 at 09:00 Influenza Virus Vaccine 0.5 ml 0.5 ml ONCE ONCE IM* ; Start 03/30/17 at 09:00; Stop 03/30/17 at 09:01 Vancomycin HCl (Vancocin) 250 ml @ 125 mls/hr Q8H IVPB ; Start 03/28/17 at 12: 00 Miscellaneous Information (*Rx Drug Level Order Reminder*) VANCO TR LEVEL PRIOR... ONCE ONCE XX ; Start 03/29/17 at 11:00; Stop 03/29/17 at 11:01 FERNY THOMPSON Mar 28, 2017 12:02
[2017-03-28] MEDS ORDERED: DOCUSATE SODIUM 100 MG CAP PO PRN (12:30)
[2017-03-28] MEDS ORDERED: ONDANSETRON 4 MG INJ IV PRN ×2 (12:30)
[2017-03-28] MEDS ORDERED: ACETAMINOPHEN 325 MG TAB PO PRN (12:30)
--- NOTE | 2017-03-28 13:08 | QN ---
Documentation Comment Dr Calles was informed, will do ID consult. will folllow up.Thx for the consultation. FRITZ FUENTES Mar 28, 2017 13:08
[2017-03-28] MEDS: VANCOMYCIN 1 GM in NS 250 ML IVPB SCH ×2 (13:54→20:09)
[2017-03-28] MEDS: NS + KCL 20 MEQ 1,000 ML IV SCH ×2 (13:54→22:08)
[2017-03-28 14:54] VITALS: BP 112/68; RESP 18
--- NOTE | 2017-03-28 15:11 | CONS ---
DATE OF ADMISSION: 03/27/2017 DATE OF CONSULTATION: 03/28/2017 GENERAL SURGERY CONSULTATION INDICATION: This is a 42-year-old male well known to me. He has had prior procedures for perianal abscesses and perirectal abscess I and D and hemorrhoid surgery. General surgery was consulted for another left perianal, possibly gluteal abscess. The patient is currently on broad-spectrum antibio tics and is doing well. PAST MEDICAL HISTORY: Hypertension. PAST SURGICAL HISTORY: Hemorrhoidectomy, perirectal abscess I and D. SOCIAL HISTORY: Alcohol, occasional tobacco every other day. PHYSICAL EXAMINATION: VITAL SIGNS: Temperature is 98.5, pulse is 100, respiratory rate is 16, blood pressure is 95 to 118 /56 to 74. GENERAL: Well-nourished male. CARDIOVASCULAR: Regular rate and rhythm. RESPIRATORY: Clear to auscultation. ABDOMEN: Soft. Left gluteal region is soft, indurated and erythematous; however, appears resolving . LABORATORY DATA: White blood cell count 15.4, hemoglobin 15.3, hematocrit is 40.8, platelets of 206 . Chemistry is normal. ASSESSMENT AND PLAN: This is a 42-year-old male with a left gluteal/perirectal abscess, currently i t is actively infected and would not be a good surgical candidate. The patient did have a drainage procedure at an outside hospital. The patient is to follow up with me in the office and is okay to be discharged home on antibiotics. Dictated By: NATALI JOHNSON MD SB/NTS Conf#: [id number] DID#: [id number] CC: ARELIS SAWYER MD;*EndCC*
[2017-03-28] MEDS: MEROPENEM 500MG/50 ML (PMX) 50 ML IVPB SCH ×2 (16:35→22:23)
[2017-03-28 20:00] VITALS: BP 123/84; RESP 20
[2017-03-28] MEDS: FAMOTIDINE 20 MG TAB PO SCH (20:09)
[2017-03-29 02:00] VITALS: BP 114/75; RESP 20
[2017-03-29] MEDS: VANCOMYCIN 1 GM in NS 250 ML IVPB SCH ×2 (05:16→12:28)
[2017-03-29 06:13] LABS: BASOPHIL # 0.1 10^3/ul (0.0-0.1); BASOPHILS % 0.6 % (0.0-2.0); EOSINOPHILS # 0.1 10^3/ul (0.0-0.5); EOSINOPHILS % 1.3 % (0.0-7.0); LYMPHOCYTES # 2.9 10^3/ul (0.8-2.9); LYMPHOCYTES % 33.7 % (15.0-51.0); MEAN CORPUSCULAR HEMOGLOBIN 26.2 pg (29.0-33.0); MEAN CORPUSCULAR HGB CONC 31.7 g/dl (32.0-37.0); MEAN CORPUSCULAR VOLUME 82.7 fl (82.0-101.0); MEAN PLATELET VOLUME 11.5 fl (7.4-10.4); MONOCYTE # 0.7 10^3/ul (0.3-0.9); NEUTROPHIL # 4.8 10^3/ul (1.6-7.5); PLATELET COUNT 207 10^3/UL (140-415); RED BLOOD COUNT 4.96 10^6/ul (4.70-6.10); RED CELL DISTRIBUTION WIDTH 13.6 % (11.5-14.5); WHITE BLOOD COUNT 8.5 10^3/ul (4.8-10.8)
[2017-03-29] MEDS: MEROPENEM 500MG/50 ML (PMX) 50 ML IVPB SCH (06:21)
[2017-03-29 06:35] LABS: ALBUMIN 3.6 g/dl (3.3-4.9); ALBUMIN/GLOBULIN RATIO 1.05; BILIRUBIN,INDIRECT 0.4 mg/dl (0-1.1); BILIRUBIN,TOTAL 0.4 mg/dl (0.2-1.3); CALCIUM 8.9 mg/dl (8.4-10.2); CREATININE 0.98 mg/dl (0.61-1.24); POTASSIUM 4.1 mmol/L (3.5-5.1)
[2017-03-29] MEDS: NS + KCL 20 MEQ 1,000 ML IV SCH ×3 (07:13→23:14)
[2017-03-29 07:52] VITALS: BP 104/70; RESP 20
[2017-03-29] MEDS: FAMOTIDINE 20 MG TAB PO SCH ×2 (08:20→19:59)
[2017-03-29] MEDS: ENOXAPARIN 30 MG/0.3 ML SYG SC SCH (08:26)
--- NOTE | 2017-03-29 12:46 | PN ---
Date/Time of Note Date/Time of Note DATE: 03/29/17 TIME: 12:42 Assessment/Plan Lines/Catheters IV Catheter Type (from Nrsg): Saline Lock Urinary Cath still in place: No Subjective 24 Hr Interval Summary Free Text/Dictation NAD - Left buttock abscess- had wound culture done at [place]- awaiting result- if stable- anticipate dc home. - afebrile -dw staff Constitutional: requiring IVF Respiratory: no complaints Cardiovascular: no complaints Gastrointestinal: no complaints Musculoskeletal: back pain Exam/Review of Systems Vital Signs Vitals Vital Signs Date Time Temp Pulse Resp B/P Pulse Ox O2 Delivery O2 Flow Rate FiO2 03/29/17 07:52 98.1 81 20 104/70 98 03/27/17 22:53 Room Air Intake and Output 03/28/17 03/28/17 03/29/17 15:00 23:00 07:00 Intake Total 1960 ml 1500 ml Balance 1960 ml 1500 ml Exam Constitutional: alert, oriented Respiratory: clear to auscultation, normal air movement Cardiovascular: nl pulses Gastrointestinal: non-tender, soft Musculoskeletal: nl extremities to inspection Neurological: nl mental status, nl speech Skin: other (left buttock abcess) Results Result Diagram: 03/29/17 0535 03/29/17 0535 Results 24 hrs Laboratory Tests Test 03/29/17 05:35 03/29/17 11:18 White Blood Count 8.5 # Red Blood Count 4.96 Hemoglobin 13.0 L Hematocrit 41.0 L Mean Corpuscular Volume 82.7 Mean Corpuscular Hemoglobin 26.2 L Mean Corpuscular Hemoglobin Concent 31.7 L Red Cell Distribution Width 13.6 Platelet Count 207 Mean Platelet Volume 11.5 H Neutrophils % 56.0 Lymphocytes % 33.7 Monocytes % 8.0 Eosinophils % 1.3 Basophils % 0.6 Nucleated Red Blood Cells % 0.0 Neutrophils # 4.8 Lymphocytes # 2.9 Monocytes # 0.7 Eosinophils # 0.1 Basophils # 0.1 Nucleated Red Blood Cells # 0.0 Sodium Level 143 Potassium Level 4.1 Chloride Level 107 Carbon Dioxide Level 26 Anion Gap 14 Blood Urea Nitrogen 8 Creatinine 0.98 Glucose Level 101 Calcium Level 8.9 Total Bilirubin 0.4 Direct Bilirubin 0.00 Indirect Bilirubin 0.4 Aspartate Amino Transf (AST/SGOT) 15 Alanine Aminotransferase (ALT/SGPT) 31 Alkaline Phosphatase 63 Total Protein 7.0 Albumin 3.6 Globulin 3.40 H Albumin/Globulin Ratio 1.05 Vancomycin Level Trough 10.2 Medications Medications Current Medications Morphine Sulfate (morphine) 2 mg Q4H PRN IV PAIN Last administered on 22:24; Admin Dose 2 MG; Start 03/28/17 at 00:00 Ondansetron HCl (Zofran Inj) 4 mg Q6H PRN IV NAUSEA AND/OR VOMITING; Start at 00:00 Influenza Virus Vaccine 0.5 ml 0.5 ml ONCE ONCE IM* ; Start 03/30/17 at 09:00; Stop 03/30/17 at 09:01 Vancomycin HCl 250 ml @ 125 mls/hr Q8H IVPB Last administered on 03/29/17 12 :28; Admin Dose 125 MLS/HR; Start 03/28/17 at 12:00; Stop 03/29/17 at 14:00 Meropenem/Sodium Chloride 50 ml @ 100 mls/hr Q8 IVPB Last administered on 06:21; Admin Dose 100 MLS/HR; Start 03/28/17 at 14:00 Potassium Chloride/Sodium Chloride (NS-KCl 20 Meq) 1,000 ml @ 100 mls/hr Q10H IV Last administered on 03/29/17 07:13; Admin Dose 100 MLS/HR; Start at 12:08 Ondansetron HCl (Zofran Inj) 4 mg Q6H PRN IV NAUSEA AND/OR VOMITING; Start at 12:30 Acetaminophen (Tylenol Tab) 650 mg Q6H PRN PO PAIN LEVEL 1-3 OR FEVER; Start 03/28/17 at 12:30 Morphine Sulfate (morphine) 2 mg Q4H PRN IV SEVERE PAIN LEVEL 7-10; Start at 12:30 Docusate Sodium (Colace) 100 mg Q12H PRN PO CONSTIPATION; Start 03/28/17 at 12 :30 Famotidine (Pepcid) 20 mg Q12 PO Last administered on 03/29/17 08:20; Admin Dose 20 MG; Start 03/28/17 at 21:00 Enoxaparin Sodium 30 mg 30 mg DAILY SC Last administered on 11/23/17at 08:26; Admin Dose 30 MG; Start 03/29/17 at 09:00 Vancomycin HCl/ Sodium Chloride (Vancocin/NS) 250 ml @ 83.333 mls/ hr Q8H IVPB ; Start 03/29/17 at 20:00 FRITZ FUENTES Mar 29, 2017 12:46
--- NOTE | 2017-03-29 13:03 | CONS ---
Date/Time of Note Date/Time of Note DATE: 03/29/17 TIME: 13:03 Consultation Date/Type/Reason Admit Date/Time Mar 27, 2017 at 22:41 Past Medical History Medical History: hypertension Past Surgical History Past Surgical Hx: other Social History Alcohol Use: occasionally Smoking Status: Current every day smoker Drug Use: none Exam/Review of Systems Vital Signs Vitals Vital Signs Date Time Temp Pulse Resp B/P Pulse Ox O2 Delivery O2 Flow Rate FiO2 03/29/17 07:52 98.1 81 20 104/70 98 03/27/17 22:53 Room Air Intake and Output 03/28/17 03/28/17 03/29/17 15:00 23:00 07:00 Intake Total 1960 ml 1500 ml Balance 1960 ml 1500 ml Results Result Diagram: 03/29/17 0535 03/29/17 0535 Results 24 hrs Laboratory Tests Test 03/29/17 05:35 03/29/17 11:18 White Blood Count 8.5 # Red Blood Count 4.96 Hemoglobin 13.0 L Hematocrit 41.0 L Mean Corpuscular Volume 82.7 Mean Corpuscular Hemoglobin 26.2 L Mean Corpuscular Hemoglobin Concent 31.7 L Red Cell Distribution Width 13.6 Platelet Count 207 Mean Platelet Volume 11.5 H Neutrophils % 56.0 Lymphocytes % 33.7 Monocytes % 8.0 Eosinophils % 1.3 Basophils % 0.6 Nucleated Red Blood Cells % 0.0 Neutrophils # 4.8 Lymphocytes # 2.9 Monocytes # 0.7 Eosinophils # 0.1 Basophils # 0.1 Nucleated Red Blood Cells # 0.0 Sodium Level 143 Potassium Level 4.1 Chloride Level 107 Carbon Dioxide Level 26 Anion Gap 14 Blood Urea Nitrogen 8 Creatinine 0.98 Glucose Level 101 Calcium Level 8.9 Total Bilirubin 0.4 Direct Bilirubin 0.00 Indirect Bilirubin 0.4 Aspartate Amino Transf (AST/SGOT) 15 Alanine Aminotransferase (ALT/SGPT) 31 Alkaline Phosphatase 63 Total Protein 7.0 Albumin 3.6 Globulin 3.40 H Albumin/Globulin Ratio 1.05 Vancomycin Level Trough 10.2 Medications Medications Current Medications Morphine Sulfate (morphine) 2 mg Q4H PRN IV PAIN Last administered on t 22:24; Admin Dose 2 MG; Start 03/28/17 at 00:00 Ondansetron HCl (Zofran Inj) 4 mg Q6H PRN IV NAUSEA AND/OR VOMITING; Start at 00:00 Influenza Virus Vaccine 0.5 ml 0.5 ml ONCE ONCE IM* ; Start 03/30/17 at 09:00; Stop 03/30/17 at 09:01 Vancomycin HCl 250 ml @ 125 mls/hr Q8H IVPB Last administered on 03/29/17 12 :28; Admin Dose 125 MLS/HR; Start 03/28/17 at 12:00; Stop 03/29/17 at 14:00 Potassium Chloride/Sodium Chloride (NS-KCl 20 Meq) 1,000 ml @ 100 mls/hr Q10H IV Last administered on 03/29/17 07:13; Admin Dose 100 MLS/HR; Start at 12:08 Ondansetron HCl (Zofran Inj) 4 mg Q6H PRN IV NAUSEA AND/OR VOMITING; Start at 12:30 Acetaminophen (Tylenol Tab) 650 mg Q6H PRN PO PAIN LEVEL 1-3 OR FEVER; Start 03/28/17 at 12:30 Morphine Sulfate (morphine) 2 mg Q4H PRN IV SEVERE PAIN LEVEL 7-10; Start at 12:30 Docusate Sodium (Colace) 100 mg Q12H PRN PO CONSTIPATION; Start 03/28/17 at 12 :30 Famotidine (Pepcid) 20 mg Q12 PO Last administered on 03/29/17 08:20; Admin Dose 20 MG; Start 03/28/17 at 21:00 Enoxaparin Sodium 30 mg 30 mg DAILY SC Last administered on 03/29/17 08:26; Admin Dose 30 MG; Start 03/29/17 at 09:00 Vancomycin HCl 1.25 gm/Sodium Chloride 250 ml @ 83.333 mls/ hr Q8H IVPB ; Start 03/29/17 at 20:00 Meropenem/Sodium Chloride (Merrem 1 Gm/50 ml (Pmx)) 50 ml @ 100 mls/hr Q8 IVPB ; Start 03/29/17 at 14:00 JORDAN MALDONADO MD Mar 29, 2017 13:03
--- NOTE | 2017-03-29 13:23 | CONS ---
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 CT on 01/10/2017 showed much improvement - h/o perineal abscess s/p I&D in 07/2016. Cx grew bacteroides, gamma hemolytic strep and ESBL+E. coli. CoNS likely a colonizer - scrotal pain, likely referred pain. No e/o scrotal abscess on the physical exam - diverticulosis recommendations - await wound cx results from [facility] (will attempt to review emr) - cont. abx - will try to create po outpatent regimen for 2 weeks. Problems: Consultation Date/Type/Reason Admit Date/Time Mar 27, 2017 at 22:41 Date of Consultation: Mar 29, 2017 Reason for Consultation abx recs Referring Provider: ARELIS SAWYER MD Hx of Present Illness 42 yo male with hx of recurrent maki-rectal abscess transferred from [facility] after recent I&D. He has been placed on broad spectrum abx. We are awaiting wound cx results from [facility]. Constitutional: improved, no complaints Eyes: no complaints ENT: no complaints Respiratory: no complaints Cardiovascular: no complaints Gastrointestinal: no complaints Genitourinary: no complaints Musculoskeletal: no complaints Skin: no complaints Neurologic: no complaints Endocrine: no complaints Past Medical History Medical History: hypertension Past Surgical History Past Surgical Hx: other Social History Alcohol Use: occasionally Smoking Status: Current every day smoker Drug Use: none Exam/Review of Systems Vital Signs Vitals Vital Signs Date Time Temp Pulse Resp B/P Pulse Ox O2 Delivery O2 Flow Rate FiO2 03/29/17 07:52 98.1 81 20 104/70 98 03/27/17 22:53 Room Air Intake and Output 03/28/17 03/28/17 03/29/17 15:00 23:00 07:00 Intake Total 1960 ml 1500 ml Balance 1960 ml 1500 ml Exam Constitutional: alert, oriented, well developed Psych: nl mood/affect, no complaints Head: atraumatic, normocephalic Eyes: EOMI, PERRL, nl conjunctiva, nl lids, nl sclera ENMT: nl external ears & nose, nl lips & teeth, nl nasal mucosa & septum Cardiovascular: nl pulses, regular rate and rhythm Gastrointestinal: nl liver, spleen, non-tender, soft Results Result Diagram: 03/29/17 0535 03/29/17 0535 Results 24 hrs Laboratory Tests Test 03/29/17 05:35 03/29/17 11:18 White Blood Count 8.5 # Red Blood Count 4.96 Hemoglobin 13.0 L Hematocrit 41.0 L Mean Corpuscular Volume 82.7 Mean Corpuscular Hemoglobin 26.2 L Mean Corpuscular Hemoglobin Concent 31.7 L Red Cell Distribution Width 13.6 Platelet Count 207 Mean Platelet Volume 11.5 H Neutrophils % 56.0 Lymphocytes % 33.7 Monocytes % 8.0 Eosinophils % 1.3 Basophils % 0.6 Nucleated Red Blood Cells % 0.0 Neutrophils # 4.8 Lymphocytes # 2.9 Monocytes # 0.7 Eosinophils # 0.1 Basophils # 0.1 Nucleated Red Blood Cells # 0.0 Sodium Level 143 Potassium Level 4.1 Chloride Level 107 Carbon Dioxide Level 26 Anion Gap 14 Blood Urea Nitrogen 8 Creatinine 0.98 Glucose Level 101 Calcium Level 8.9 Total Bilirubin 0.4 Direct Bilirubin 0.00 Indirect Bilirubin 0.4 Aspartate Amino Transf (AST/SGOT) 15 Alanine Aminotransferase (ALT/SGPT) 31 Alkaline Phosphatase 63 Total Protein 7.0 Albumin 3.6 Globulin 3.40 H Albumin/Globulin Ratio 1.05 Vancomycin Level Trough 10.2 Medications Medications Current Medications Morphine Sulfate (morphine) 2 mg Q4H PRN IV PAIN Last administered on 22:24; Admin Dose 2 MG; Start 03/28/17 at 00:00 Ondansetron HCl (Zofran Inj) 4 mg Q6H PRN IV NAUSEA AND/OR VOMITING; Start at 00:00 Influenza Virus Vaccine 0.5 ml 0.5 ml ONCE ONCE IM* ; Start 03/30/17 at 09:00; Stop 03/30/17 at 09:01 Vancomycin HCl 250 ml @ 125 mls/hr Q8H IVPB Last administered on 03/29/17 12 :28; Admin Dose 125 MLS/HR; Start 03/28/17 at 12:00; Stop 03/29/17 at 14:00 Potassium Chloride/Sodium Chloride (NS-KCl 20 Meq) 1,000 ml @ 100 mls/hr Q10H IV Last administered on 03/29/17 07:13; Admin Dose 100 MLS/HR; Start at 12:08 Ondansetron HCl (Zofran Inj) 4 mg Q6H PRN IV NAUSEA AND/OR VOMITING; Start at 12:30 Acetaminophen (Tylenol Tab) 650 mg Q6H PRN PO PAIN LEVEL 1-3 OR FEVER; Start 03/28/17 at 12:30 Morphine Sulfate (morphine) 2 mg Q4H PRN IV SEVERE PAIN LEVEL 7-10; Start at 12:30 Docusate Sodium (Colace) 100 mg Q12H PRN PO CONSTIPATION; Start 03/28/17 at 12 :30 Famotidine (Pepcid) 20 mg Q12 PO Last administered on 03/29/17 08:20; Admin Dose 20 MG; Start 03/28/17 at 21:00 Enoxaparin Sodium 30 mg 30 mg DAILY SC Last administered on 03/29/17 08:26; Admin Dose 30 MG; Start 03/29/17 at 09:00 Vancomycin HCl 1.25 gm/Sodium Chloride 250 ml @ 83.333 mls/ hr Q8H IVPB ; Start 03/29/17 at 20:00 Meropenem/Sodium Chloride (Merrem 1 Gm/50 ml (Pmx)) 50 ml @ 100 mls/hr Q8 IVPB ; Start 03/29/17 at 14:00 JORDAN MALDONADO MD Mar 29, 2017 13:23
[2017-03-29 14:18] VITALS: BP 120/85; RESP 20
[2017-03-29] MEDS: MEROPENEM 1 GM/50ML(PMX) 50 ML IVPB SCH ×2 (15:23→23:14)
[2017-03-29] MEDS: VANCOMYCIN 1.25 GM in SOD CHLORIDE 0.9% 250 ML IVPB SCH (19:59)
[2017-03-29 20:00] VITALS: BP 111/86; PULSE 78; RESP 18
[2017-03-29] MEDS: morphine 2 MG INJ IV PRN (23:16)
[2017-03-30 02:00] VITALS: BP 109/75; PULSE 73; RESP 18
[2017-03-30] MEDS: NS + KCL 20 MEQ 1,000 ML IV SCH ×3 (04:08→18:56)
[2017-03-30] MEDS: VANCOMYCIN 1.25 GM in SOD CHLORIDE 0.9% 250 ML IVPB SCH ×3 (04:34→20:48)
[2017-03-30 06:28] LABS: BASOPHIL # 0.1 10^3/ul (0.0-0.1); BASOPHILS % 1.1 % (0.0-2.0); EOSINOPHILS # 0.2 10^3/ul (0.0-0.5); EOSINOPHILS % 2.2 % (0.0-7.0); HEMATOCRIT 40.4 % (42.0-52.0); HEMOGLOBIN 13.1 g/dl (14.0-18.0); LYMPHOCYTES % 41.5 % (15.0-51.0); MEAN CORPUSCULAR HEMOGLOBIN 26.6 pg (29.0-33.0); MEAN CORPUSCULAR HGB CONC 32.4 g/dl (32.0-37.0); MEAN CORPUSCULAR VOLUME 81.9 fl (82.0-101.0); MEAN PLATELET VOLUME 11.3 fl (7.4-10.4); MONOCYTE # 0.6 10^3/ul (0.3-0.9); MONOCYTES % 8.5 % (0.0-11.0); NEUTROPHIL # 3.4 10^3/ul (1.6-7.5); NEUTROPHILS % 46.4 % (39.0-77.0); PLATELET COUNT 239 10^3/UL (140-415); RED BLOOD COUNT 4.93 10^6/ul (4.70-6.10); RED CELL DISTRIBUTION WIDTH 13.5 % (11.5-14.5); WHITE BLOOD COUNT 7.3 10^3/ul (4.8-10.8)
[2017-03-30 07:03] LABS: CALCIUM 9.3 mg/dl (8.4-10.2); CREATININE 0.96 mg/dl (0.61-1.24)
[2017-03-30 08:18] VITALS: BP 111/71; RESP 20
[2017-03-30] MEDS: FAMOTIDINE 20 MG TAB PO SCH ×2 (08:48→20:47)
[2017-03-30] MEDS: ENOXAPARIN 30 MG/0.3 ML SYG SC SCH (08:53)
[2017-03-30] MEDS: MEROPENEM 1 GM/50ML(PMX) 50 ML IVPB SCH ×3 (08:55→23:27)
[2017-03-30] MEDS ORDERED: INFLUENZA VIRUS VACCINE 0.5 ML (DISPENSING) IM* ONE (09:00)
[2017-03-30] MEDS: morphine 2 MG INJ IV PRN ×2 (12:17→22:28)
--- NOTE | 2017-03-30 13:44 | CONS ---
Date/Time of Note Date/Time of Note DATE: 03/30/17 TIME: 13:39 Assessment/Plan Assessment/Plan Chief Complaint/Hosp Course - early sepsis d/t left buttock abscess - leukocytosis and tachycardia resolved - left buttock abscess s/p I&D 03/27/17 at [facility]. 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 CT on 01/10/2017 showed much improvement - h/o perineal abscess s/p I&D in 07/2016. Cx grew bacteroides, gamma hemolytic strep and ESBL+E. coli. CoNS likely a colonizer - scrotal pain, likely referred pain. No e/o scrotal abscess on the physical exam - h/o diverticulosis recommendations - await wound cx results from [facility] (will attempt to review emr + I asked RN and unit aid to follow up) - continue vanco (03/28/2017-) and meropenem (03/29/2017-) - will try to create po outpatent regimen for 2 weeks. Management d/w patient, RN Yoselyn, BOOSTER OPERATOR Mary, and Dr. Calles Problems: Consultation Date/Type/Reason Admit Date/Time Mar 27, 2017 at 22:41 Initial Consult Date 03/29/17 Referring Provider: ARELIS SAWYER MD 24 HR Interval Summary Free Text/Dictation Anxious to know duration of hospitalization to coordinate return to work. Recently medicated for left gluteal pain, now rating 4/10. Had mild scrotal pain that feel similar to previous admission. States left buttock swelling has improved. No f/c, SOB, abd pain, n/v/d, dysuria. Exam/Review of Systems Vital Signs Vitals Vital Signs Date Time Temp Pulse Resp B/P Pulse Ox O2 Delivery O2 Flow Rate FiO2 03/30/17 08:18 98.4 77 20 111/71 98 03/30/17 02:00 Room Air Intake and Output 03/29/17 03/29/17 03/30/17 14:59 22:59 06:59 Intake Total 1250 ml 1790 ml 1350 ml Balance 1250 ml 1790 ml 1350 ml Exam Constitutional: alert, oriented, well developed Psych: nl mood/affect Head: atraumatic, normocephalic Eyes: nl conjunctiva, nl sclera ENMT: nl external ears & nose Neck: supple Respiratory: clear to auscultation, normal air movement Cardiovascular: nl pulses, regular rate and rhythm Gastrointestinal: non-tender, soft, No distended Musculoskeletal: nl extremities to inspection Extremities: normal pulses Neurological: nl mental status, nl speech Skin: nl turgor, other (Left gluteal area with dressing stained, dry, intact - see nurse's note and photos in chart for details) Results Result Diagram: 03/30/1760403/30/17 06 Results 24 hrs Laboratory Tests Test 03/30/17 06:05 White Blood Count 7.3 Red Blood Count 4.93 Hemoglobin 13.1 L Hematocrit 40.4 L Mean Corpuscular Volume 81.9 L Mean Corpuscular Hemoglobin 26.6 L Mean Corpuscular Hemoglobin Concent 32.4 Red Cell Distribution Width 13.5 Platelet Count 239 Mean Platelet Volume 11.3 H Neutrophils % 46.4 Lymphocytes % 41.5 Monocytes % 8.5 Eosinophils % 2.2 Basophils % 1.1 Nucleated Red Blood Cells % 0.0 Neutrophils # 3.4 Lymphocytes # 3.0 H Monocytes # 0.6 Eosinophils # 0.2 Basophils # 0.1 Nucleated Red Blood Cells # 0.0 Sodium Level 142 Potassium Level 4.0 Chloride Level 109 Carbon Dioxide Level 25 Anion Gap 12 Blood Urea Nitrogen 11 Creatinine 0.96 Glucose Level 104 Calcium Level 9.3 Medications Medications Current Medications Potassium Chloride/Sodium Chloride (NS-KCl 20 Meq) 1,000 ml @ 100 mls/hr Q10H IV Last administered on 03/29/17 23:14; Admin Dose 100 MLS/HR; Start at 12:08 Ondansetron HCl (Zofran Inj) 4 mg Q6H PRN IV NAUSEA AND/OR VOMITING; Start at 12:30 Acetaminophen (Tylenol Tab) 650 mg Q6H PRN PO PAIN LEVEL 1-3 OR FEVER; Start 03/28/17 at 12:30 Morphine Sulfate (morphine) 2 mg Q4H PRN IV SEVERE PAIN LEVEL 7-10 Last administered on 03/30/17 12:17; Admin Dose 2 MG; Start 03/28/17 at 12:30 Docusate Sodium (Colace) 100 mg Q12H PRN PO CONSTIPATION; Start 03/28/17 at 12 :30 Famotidine (Pepcid) 20 mg Q12 PO Last administered on 03/30/17 08:48; Admin Dose 20 MG; Start 03/28/17 at 21:00 Enoxaparin Sodium 30 mg 30 mg DAILY SC Last administered on 03/30/17 08:53; Admin Dose 30 MG; Start 03/29/17 at 09:00 Vancomycin HCl 1.25 gm/Sodium Chloride 250 ml @ 83.333 mls/ hr Q8H IVPB Last administered on 03/30/17 11:53; Admin Dose 83.333 MLS/HR; Start 03/29/17 at 20:00 Meropenem/Sodium Chloride (Merrem 1 Gm/50 ml (Pmx)) 50 ml @ 100 mls/hr Q8 IVPB Last administered on 03/30/17 08:55; Admin Dose 100 MLS/HR; Start 03/29/17 at 14:00 REJI HUMPHRIES NP Mar 30, 2017 13:44
[2017-03-30 14:31] VITALS: BP 134/88; RESP 18
--- NOTE | 2017-03-30 15:24 | PN ---
Date/Time of Note Date/Time of Note DATE: 03/30/17 TIME: 15:20 Assessment/Plan VTE Prophylaxis VTE Prophylaxis Intervention: SCD's Lines/Catheters IV [facility] (from [facility] Peripheral IV Urinary Cath still in place: No Assessment/Plan Chief Complaint/Hosp Course Assessment/Plan -Left perirectal abscess, status post drain drainage on 03/27. Dr. Castano is following in a general surgery consultation. Continue current wound care. -Sepsis, continue broad-spectrum antibiotics, obtain culture results of drainage , Dr. Calles is following in infection disease consultation -Hypertension, patient is currently normotensive. Further recommendations based on clinical course. Plan of care is discussed with Dr. Rooney. Problems: Exam/Review of Systems Vital Signs Vitals Vital Signs Date Time Temp Pulse Resp B/P Pulse Ox O2 Delivery O2 Flow Rate FiO2 03/30/17 14:31 98.4 81 18 134/88 97 03/30/17 02:00 Room Air Intake and Output 03/29/17 03/29/17 03/30/17 15:00 23:00 07:00 Intake Total 1250 ml 1790 ml 1350 ml Balance 1250 ml 1790 ml 1350 ml Exam Constitutional: alert, oriented Head: normocephalic Neck: supple Respiratory: normal air movement Cardiovascular: nl pulses Gastrointestinal: non-tender, soft Extremities: normal pulses Neurological: nl mental status Skin: other (Left perirectal abscess with drainage) Results Result Diagram: 03/30/17 0605 03/30/17 0605 Results 24 hrs Laboratory Tests Test 03/30/17 06:05 White Blood Count 7.3 Red Blood Count 4.93 Hemoglobin 13.1 L Hematocrit 40.4 L Mean Corpuscular Volume 81.9 L Mean Corpuscular Hemoglobin 26.6 L Mean Corpuscular Hemoglobin Concent 32.4 Red Cell Distribution Width 13.5 Platelet Count 239 Mean Platelet Volume 11.3 H Neutrophils % 46.4 Lymphocytes % 41.5 Monocytes % 8.5 Eosinophils % 2.2 Basophils % 1.1 Nucleated Red Blood Cells % 0.0 Neutrophils # 3.4 Lymphocytes # 3.0 H Monocytes # 0.6 Eosinophils # 0.2 Basophils # 0.1 Nucleated Red Blood Cells # 0.0 Sodium Level 142 Potassium Level 4.0 Chloride Level 109 Carbon Dioxide Level 25 Anion Gap 12 Blood Urea Nitrogen 11 Creatinine 0.96 Glucose Level 104 Calcium Level 9.3 Medications Medications Current Medications Potassium Chloride/Sodium Chloride (NS-KCl 20 Meq) 1,000 ml @ 100 mls/hr Q10H IV Last administered on 03/29/17 23:14; Admin Dose 100 MLS/HR; Start at 12:08 Ondansetron HCl (Zofran Inj) 4 mg Q6H PRN IV NAUSEA AND/OR VOMITING; Start at 12:30 Acetaminophen (Tylenol Tab) 650 mg Q6H PRN PO PAIN LEVEL 1-3 OR FEVER; Start 03/28/17 at 12:30 Morphine Sulfate (morphine) 2 mg Q4H PRN IV SEVERE PAIN LEVEL 7-10 Last administered on 03/30/17 12:17; Admin Dose 2 MG; Start 03/28/17 at 12:30 Docusate Sodium (Colace) 100 mg Q12H PRN PO CONSTIPATION; Start 03/28/17 at 12 :30 Famotidine (Pepcid) 20 mg Q12 PO Last administered on 03/30/17 08:48; Admin Dose 20 MG; Start 03/28/17 at 21:00 Enoxaparin Sodium 30 mg 30 mg DAILY SC Last administered on 03/30/17 08:53; Admin Dose 30 MG; Start 03/29/17 at 09:00 Vancomycin HCl 1.25 gm/Sodium Chloride 250 ml @ 83.333 mls/ hr Q8H IVPB Last administered on 03/30/17 11:53; Admin Dose 83.333 MLS/HR; Start 03/29/17 at 20:00 Meropenem/Sodium Chloride (Merrem 1 Gm/50 ml (Pmx)) 50 ml @ 100 mls/hr Q8 IVPB Last administered on 03/30/17 08:55; Admin Dose 100 MLS/HR; Start 03/29/17 at 14:00 Miscellaneous Information (*Rx Drug Level Order Reminder*) VANCO TROUGH @ 1, 900 ON ... ONCE ONCE XX ; Start 03/30/17 at 19:00; Stop 03/30/17 at 19:01 FERNY THOMPSON Mar 30, 2017 15:24
[2017-03-30 20:00] VITALS: BP 105/89; PULSE 83; RESP 19
[2017-03-31] MEDS: NS + KCL 20 MEQ 1,000 ML IV SCH ×3 (00:08→12:34)
[2017-03-31 02:00] VITALS: BP 114/94; PULSE 86; RESP 19
[2017-03-31] MEDS: VANCOMYCIN 1.25 GM in SOD CHLORIDE 0.9% 250 ML IVPB SCH (03:47)
[2017-03-31] MEDS: MEROPENEM 1 GM/50ML(PMX) 50 ML IVPB SCH ×3 (06:56→21:15)
[2017-03-31 07:08] LABS: CREATININE 1.05 mg/dl (0.61-1.24); POTASSIUM 4.4 mmol/L (3.5-5.1)
[2017-03-31 07:17] VITALS: BP 101/63; RESP 20
--- NOTE | 2017-03-31 08:04 | CONS ---
Date/Time of Note Date/Time of Note DATE: 03/31/17 TIME: 08:03 Assessment/Plan Assessment/Plan Chief Complaint/Hosp Course emrs including those at [facility] reviewed. Patient will likely need 2 weeks ertapenem. content assistant note to follow shortly Problems: Consultation Date/Type/Reason Admit Date/Time Mar 27, 2017 at 22:41 Initial Consult Date 03/29/17 Referring Provider: ARELIS SAWYER MD Exam/Review of Systems Vital Signs Vitals Vital Signs Date Time Temp Pulse Resp B/P Pulse Ox O2 Delivery O2 Flow Rate FiO2 03/31/17 07:17 97.5 74 20 101/63 98 03/31/17 02:00 Room Air Intake and Output 03/30/17 03/30/17 03/31/17 15:00 23:00 07:00 Intake Total 350 ml 2510 ml 1850 ml Output Total 1700 ml Balance 350 ml 810 ml 1850 ml Results Result Diagram: 03/30/17 0605 03/31/17 0524 Results 24 hrs Laboratory Tests Test 03/30/17 19:13 03/31/17 05:24 Vancomycin Level Trough 16.3 Sodium Level 143 Potassium Level 4.4 Chloride Level 106 Carbon Dioxide Level 27 Anion Gap 14 Blood Urea Nitrogen 12 Creatinine 1.05 Glucose Level 102 Calcium Level 9.0 Medications Medications Current Medications Potassium Chloride/Sodium Chloride (NS-KCl 20 Meq) 1,000 ml @ 100 mls/hr Q10H IV Last administered on 03/30/17 18:56; Admin Dose 100 MLS/HR; Start at 12:08 Ondansetron HCl (Zofran Inj) 4 mg Q6H PRN IV NAUSEA AND/OR VOMITING; Start at 12:30 Acetaminophen (Tylenol Tab) 650 mg Q6H PRN PO PAIN LEVEL 1-3 OR FEVER; Start 03/28/17 at 12:30 Morphine Sulfate (morphine) 2 mg Q4H PRN IV SEVERE PAIN LEVEL 7-10 Last administered on 03/30/17 22:28; Admin Dose 2 MG; Start 03/28/17 at 12:30 Docusate Sodium (Colace) 100 mg Q12H PRN PO CONSTIPATION; Start 03/28/17 at 12 :30 Famotidine (Pepcid) 20 mg Q12 PO Last administered on 03/30/17 20:47; Admin Dose 20 MG; Start 03/28/17 at 21:00 Enoxaparin Sodium 30 mg 30 mg DAILY SC Last administered on 03/30/17 08:53; Admin Dose 30 MG; Start 03/29/17 at 09:00 Vancomycin HCl 1.25 gm/Sodium Chloride 250 ml @ 83.333 mls/ hr Q8H IVPB Last administered on 03/31/17 03:47; Admin Dose 83.333 MLS/HR; Start 03/29/17 at 20:00 Meropenem/Sodium Chloride (Merrem 1 Gm/50 ml (Pmx)) 50 ml @ 100 mls/hr Q8 IVPB Last administered on 03/31/17 06:56; Admin Dose 100 MLS/HR; Start 03/29/17 at 14:00 JORDAN MALDONADO MD Mar 31, 2017 08:04
[2017-03-31] MEDS: FAMOTIDINE 20 MG TAB PO SCH ×2 (09:12→21:15)
[2017-03-31] MEDS: ENOXAPARIN 30 MG/0.3 ML SYG SC SCH (09:15)
--- NOTE | 2017-03-31 11:13 | PN ---
Date/Time of Note Date/Time of Note DATE: 03/31/17 TIME: 11:12 Assessment/Plan VTE Prophylaxis VTE Prophylaxis Intervention: other Lines/Catheters IV Catheter Type (from [facility]rs): Peripheral IV Urinary Cath still in place: No Assessment/Plan Chief Complaint/Hosp Course -Left perirectal abscess, status post drain drainage on 03/27. Dr. Castano is following in a general surgery consultation. Continue current wound care. -Sepsis, continue broad-spectrum antibiotics, obtain culture results of drainage , Dr. Calles is following in infection disease consultation -Hypertension, patient is currently normotensive. Problems: Subjective 24 Hr Interval Summary Free Text/Dictation Patient complain of pain in left buttocks Exam/Review of Systems Vital Signs Vitals Vital Signs Date Time Temp Pulse Resp B/P Pulse Ox O2 Delivery O2 Flow Rate FiO2 03/31/17 07:17 97.5 74 20 101/63 98 03/31/17 02:00 Room Air Intake and Output 03/30/17 03/30/17 03/31/17 15:00 23:00 07:00 Intake Total 350 ml 2510 ml 1850 ml Output Total 1700 ml Balance 350 ml 810 ml 1850 ml Exam Constitutional: well developed Head: atraumatic, normocephalic Neck: supple Respiratory: clear to auscultation Cardiovascular: regular rate and rhythm Gastrointestinal: non-tender, soft Extremities: normal pulses Results Result Diagram: 03/30/17 0605 03/31/17 0524 Results 24 hrs Laboratory Tests Test 03/30/17 19:13 03/31/17 05:24 Vancomycin Level Trough 16.3 Sodium Level 143 Potassium Level 4.4 Chloride Level 106 Carbon Dioxide Level 27 Anion Gap 14 Blood Urea Nitrogen 12 Creatinine 1.05 Glucose Level 102 Calcium Level 9.0 Medications Medications Current Medications Potassium Chloride/Sodium Chloride (NS-KCl 20 Meq) 1,000 ml @ 100 mls/hr Q10H IV Last administered on 03/30/17t 18:56; Admin Dose 100 MLS/HR; Start at 12:08 Ondansetron HCl (Zofran Inj) 4 mg Q6H PRN IV NAUSEA AND/OR VOMITING; Start at 12:30 Acetaminophen (Tylenol Tab) 650 mg Q6H PRN PO PAIN LEVEL 1-3 OR FEVER; Start 03/28/17 at 12:30 Morphine Sulfate (morphine) 2 mg Q4H PRN IV SEVERE PAIN LEVEL 7-10 Last administered on 03/30/17 22:28; Admin Dose 2 MG; Start 03/28/17 at 12:30 Docusate Sodium (Colace) 100 mg Q12H PRN PO CONSTIPATION; Start 03/28/17 at 12 :30 Famotidine (Pepcid) 20 mg Q12 PO Last administered on 03/31/17 09:12; Admin Dose 20 MG; Start 03/28/17 at 21:00 Enoxaparin Sodium 30 mg 30 mg DAILY SC Last administered on 03/31/17 09:15; Admin Dose 30 MG; Start 03/29/17 at 09:00 Meropenem/Sodium Chloride (Merrem 1 Gm/50 ml (Pmx)) 50 ml @ 100 mls/hr Q8 IVPB Last administered on 03/31/17 06:56; Admin Dose 100 MLS/HR; Start 03/29/17 at 14:00 JESSEE SANCHEZ Mar 31, 2017 11:13
[2017-03-31 13:28] VITALS: BP 130/83; RESP 20
--- NOTE | 2017-03-31 14:16 | CONS ---
Date/Time of Note Date/Time of Note DATE: 03/31/17 TIME: 14:09 Assessment/Plan Assessment/Plan Additional Assessment/Plan - early sepsis d/t left buttock abscess - leukocytosis and tachycardia resolved -BLOOD CULTURE Preliminary -NO GROWTH AFTER 3 DAYS - left buttock abscess s/p I&D 03/27/17 at [facility]. 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 CT on 01/10/2017 showed much improvement - h/o perineal abscess s/p I&D in 07/2016. Cx grew bacteroides, gamma hemolytic strep and ESBL+E. coli. CoNS likely a colonizer - scrotal pain, likely referred pain- better today. No e/o scrotal abscess on the physical exam - h/o diverticulosis recommendations - dc vanco (03/28/2017-03/31/2017) and meropenem (03/29/2017-) - will try to create po outpatent regimen for 2 weeks. - Management d/w patient, JAZMÍN Topete, and Dr. Calles Consultation Date/Type/Reason Admit Date/Time Mar 27, 2017 at 22:41 Initial Consult Date 03/29/17 Referring Provider: ARELIS SAWYER MD 24 HR Interval Summary Free Text/Dictation - Feels better- States left buttock swelling has improved , did not ask for pain med yet. - mild scrotal pain- improved - that feel similar to previous admission. - No f/c, SOB, abd pain, n/v/d, dysuria. Detailed Summary Respiratory: no complaints Cardiovascular: no complaints Gastrointestinal: no complaints Genitourinary: no complaints Musculoskeletal: no complaints Skin: other (left buttock abcess) Neurologic: no complaints Exam/Review of Systems Vital Signs Vitals Vital Signs Date Time Temp Pulse Resp B/P Pulse Ox O2 Delivery O2 Flow Rate FiO2 03/31/17 13:28 98.5 76 20 130/83 97 03/31/17 02:00 Room Air Intake and Output 03/30/17 03/30/17 03/31/17 15:00 23:00 07:00 Intake Total 350 ml 2510 ml 1850 ml Output Total 1700 ml Balance 350 ml 810 ml 1850 ml Exam Constitutional: alert, oriented, well developed Respiratory: clear to auscultation, normal air movement Cardiovascular: nl pulses, other (s1s2) Gastrointestinal: non-tender, soft Musculoskeletal: nl extremities to inspection Extremities: normal pulses Neurological: nl mental status, nl speech Skin: other (eft buttock abscess) Results Result Diagram: 03/30/17 0605 03/31/17 0524 Results 24 hrs Laboratory Tests Test 03/30/17 19:13 03/31/17 05:24 Vancomycin Level Trough 16.3 Sodium Level 143 Potassium Level 4.4 Chloride Level 106 Carbon Dioxide Level 27 Anion Gap 14 Blood Urea Nitrogen 12 Creatinine 1.05 Glucose Level 102 Calcium Level 9.0 Medications Medications Current Medications Potassium Chloride/Sodium Chloride (NS-KCl 20 Meq) 1,000 ml @ 100 mls/hr Q10H IV Last administered on 03/31/17 12:34; Admin Dose 100 MLS/HR; Start at 12:08 Ondansetron HCl (Zofran Inj) 4 mg Q6H PRN IV NAUSEA AND/OR VOMITING; Start at 12:30 Acetaminophen (Tylenol Tab) 650 mg Q6H PRN PO PAIN LEVEL 1-3 OR FEVER; Start 03/28/17 at 12:30 Morphine Sulfate (morphine) 2 mg Q4H PRN IV SEVERE PAIN LEVEL 7-10 Last administered on 03/30/17 22:28; Admin Dose 2 MG; Start 03/28/17 at 12:30 Docusate Sodium (Colace) 100 mg Q12H PRN PO CONSTIPATION; Start 03/28/17 at 12 :30 Famotidine (Pepcid) 20 mg Q12 PO Last administered on 03/31/17 09:12; Admin Dose 20 MG; Start 03/28/17 at 21:00 Enoxaparin Sodium 30 mg 30 mg DAILY SC Last administered on 03/31/17 09:15; Admin Dose 30 MG; Start 03/29/17 at 09:00 Meropenem/Sodium Chloride (Merrem 1 Gm/50 ml (Pmx)) 50 ml @ 100 mls/hr Q8 IVPB Last administered on 03/31/17 06:56; Admin Dose 100 MLS/HR; Start 03/29/17 at 14:00 FRITZ FUENTES Mar 31, 2017 14:16
[2017-03-31 19:40] VITALS: BP 111/69; RESP 20
[2017-03-31] MEDS: morphine 2 MG INJ IV PRN (22:35)
[2017-04-01] MEDS: NS + KCL 20 MEQ 1,000 ML IV SCH ×3 (00:56→23:56)
[2017-04-01 02:23] VITALS: BP 101/58; RESP 20
[2017-04-01] MEDS: MEROPENEM 1 GM/50ML(PMX) 50 ML IVPB SCH ×3 (05:44→21:21)
[2017-04-01 07:22] VITALS: BP 101/63; RESP 20
[2017-04-01] MEDS: FAMOTIDINE 20 MG TAB PO SCH ×2 (08:56→21:21)
[2017-04-01] MEDS: ENOXAPARIN 30 MG/0.3 ML SYG SC SCH (08:59)
--- NOTE | 2017-04-01 10:51 | PN ---
Date/Time of Note Date/Time of Note DATE: 04/01/17 TIME: 10:50 Assessment/Plan VTE Prophylaxis VTE Prophylaxis Intervention: other Lines/Catheters IV Catheter Type (from Nrs): Peripheral IV Urinary Cath still in place: No Assessment/Plan Chief Complaint/Hosp Course -Left perirectal abscess, status post drain drainage on 03/27. Dr. Castano is following in a general surgery consultation. Continue current wound care. -Sepsis, continue broad-spectrum antibiotics, obtain culture results of drainage , Dr. Calles is following in infection disease consultation -Hypertension, patient is currently normotensive. Problems: Subjective 24 Hr Interval Summary Free Text/Dictation Patient has pain in buttocks but much improved, wants to go home Exam/Review of Systems Vital Signs Vitals Vital Signs Date Time Temp Pulse Resp B/P Pulse Ox O2 Delivery O2 Flow Rate FiO2 04/01/17 07:22 98.4 75 20 101/63 100 03/31/17 02:00 Room Air Intake and Output 03/31/17 03/31/17 04/01/17 15:00 23:00 07:00 Intake Total 550 ml 1840 ml 1420 ml Balance 550 ml 1840 ml 1420 ml Exam Constitutional: well developed Head: atraumatic, normocephalic Neck: supple Respiratory: clear to auscultation Cardiovascular: regular rate and rhythm Gastrointestinal: non-tender, soft Extremities: normal pulses Results Result Diagram: 03/30/17 0605 03/31/17 0524 Medications Medications Current Medications Potassium Chloride/Sodium Chloride (NS-KCl 20 Meq) 1,000 ml @ 100 mls/hr Q10H IV Last administered on 04/01/17 00:56; Admin Dose 100 MLS/HR; Start at 12:08 Ondansetron HCl (Zofran Inj) 4 mg Q6H PRN IV NAUSEA AND/OR VOMITING; Start at 12:30 Acetaminophen (Tylenol Tab) 650 mg Q6H PRN PO PAIN LEVEL 1-3 OR FEVER; Start 03/28/17 at 12:30 Morphine Sulfate (morphine) 2 mg Q4H PRN IV SEVERE PAIN LEVEL 7-10 Last administered on 03/31/17 22:35; Admin Dose 2 MG; Start 03/28/17 at 12:30 Docusate Sodium (Colace) 100 mg Q12H PRN PO CONSTIPATION; Start 03/28/17 at 12 :30 Famotidine (Pepcid) 20 mg Q12 PO Last administered on 04/01/17 08:56; Admin Dose 20 MG; Start 03/28/17 at 21:00 Enoxaparin Sodium 30 mg 30 mg DAILY SC Last administered on 04/01/17 08:59; Admin Dose 30 MG; Start 03/29/17 at 09:00 Meropenem/Sodium Chloride (Merrem 1 Gm/50 ml (Pmx)) 50 ml @ 100 mls/hr Q8 IVPB Last administered on 04/01/17 05:44; Admin Dose 100 MLS/HR; Start 03/29/17 at 14:00 JESSEE SANCHEZ Apr 01, 2017 10:51
[2017-04-01 13:48] VITALS: BP 100/68; RESP 20
--- NOTE | 2017-04-01 14:34 | CONS ---
Date/Time of Note Date/Time of Note DATE: 04/01/17 TIME: 14:33 Assessment/Plan Assessment/Plan Additional Assessment/Plan - early sepsis d/t left buttock abscess - leukocytosis and tachycardia resolved -BLOOD CULTURE Preliminary -NO GROWTH AFTER 3 DAYS - left buttock abscess s/p I&D 03/27/17 at [facility]. 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 CT on 01/10/2017 showed much improvement - h/o perineal abscess s/p I&D in 07/2016. Cx grew bacteroides, gamma hemolytic strep and ESBL+E. coli. CoNS likely a colonizer - scrotal pain, likely referred pain- better today. No e/o scrotal abscess on the physical exam - h/o diverticulosis recommendations - dc vanco (03/28/2017-03/31/2017) and meropenem (03/29/2017-) - will try to create po outpatients regimen for 2 weeks. - Management d/w patient, JAZMÍN Topete, and Dr. Calles Consultation Date/Type/Reason Admit Date/Time Mar 27, 2017 at 22:41 Initial Consult Date 03/29/17 Referring Provider: ARELIS SAWYER MD Exam/Review of Systems Vital Signs Vitals Vital Signs Date Time Temp Pulse Resp B/P Pulse Ox O2 Delivery O2 Flow Rate FiO2 04/01/17 13:48 97.6 80 20 100/68 98 03/31/17 02:00 Room Air Intake and Output 03/31/17 03/31/17 04/01/17 14:59 22:59 06:59 Intake Total 550 ml 1840 ml 1420 ml Balance 550 ml 1840 ml 1420 ml Exam Constitutional: alert, well developed Respiratory: clear to auscultation, normal air movement Cardiovascular: nl pulses, other (s1s2) Gastrointestinal: non-tender, soft Musculoskeletal: nl extremities to inspection Extremities: normal pulses Neurological: nl mental status, nl speech Results Result Diagram: 03/30/17 0605 03/31/17 0524 Medications Medications Current Medications Potassium Chloride/Sodium Chloride (NS-KCl 20 Meq) 1,000 ml @ 100 mls/hr Q10H IV Last administered on 04/01/17t 13:12; Admin Dose 100 MLS/HR; Start at 12:08 Ondansetron HCl (Zofran Inj) 4 mg Q6H PRN IV NAUSEA AND/OR VOMITING; Start at 12:30 Acetaminophen (Tylenol Tab) 650 mg Q6H PRN PO PAIN LEVEL 1-3 OR FEVER; Start 03/28/17 at 12:30 Morphine Sulfate (morphine) 2 mg Q4H PRN IV SEVERE PAIN LEVEL 7-10 Last administered on 03/31/17 22:35; Admin Dose 2 MG; Start 03/28/17 at 12:30 Docusate Sodium (Colace) 100 mg Q12H PRN PO CONSTIPATION; Start 03/28/17 at 12 :30 Famotidine (Pepcid) 20 mg Q12 PO Last administered on 04/01/17 08:56; Admin Dose 20 MG; Start 03/28/17 at 21:00 Enoxaparin Sodium 30 mg 30 mg DAILY SC Last administered on 04/01/17 08:59; Admin Dose 30 MG; Start 03/29/17 at 09:00 Meropenem/Sodium Chloride (Merrem 1 Gm/50 ml (Pmx)) 50 ml @ 100 mls/hr Q8 IVPB Last administered on 04/01/17 14:15; Admin Dose 100 MLS/HR; Start 03/29/17 at 14:00 FRITZ FUENTES Apr 01, 2017 14:34
[2017-04-01] MEDS: morphine 2 MG INJ IV PRN (14:57)
[2017-04-01 20:00] VITALS: BP 111/74; RESP 20
[2017-04-02] MEDS: NS + KCL 20 MEQ 1,000 ML IV SCH ×4 (02:08→23:44)
[2017-04-02 02:29] VITALS: BP 113/74; RESP 20
[2017-04-02] MEDS: MEROPENEM 1 GM/50ML(PMX) 50 ML IVPB SCH ×3 (05:18→22:14)
[2017-04-02 06:45] LABS: BASOPHIL # 0.1 10^3/ul (0.0-0.1); BASOPHILS % 0.8 % (0.0-2.0); EOSINOPHILS # 0.1 10^3/ul (0.0-0.5); EOSINOPHILS % 1.8 % (0.0-7.0); HEMATOCRIT 43.9 % (42.0-52.0); HEMOGLOBIN 14.4 g/dl (14.0-18.0); LYMPHOCYTES # 3.3 10^3/ul (0.8-2.9); LYMPHOCYTES % 45.3 % (15.0-51.0); MEAN CORPUSCULAR HEMOGLOBIN 27.2 pg (29.0-33.0); MEAN CORPUSCULAR HGB CONC 32.8 g/dl (32.0-37.0); MONOCYTE # 0.5 10^3/ul (0.3-0.9); MONOCYTES % 6.7 % (0.0-11.0); NEUTROPHIL # 3.3 10^3/ul (1.6-7.5); PLATELET COUNT 300 10^3/UL (140-415); RED BLOOD COUNT 5.29 10^6/ul (4.70-6.10); RED CELL DISTRIBUTION WIDTH 13.3 % (11.5-14.5); WHITE BLOOD COUNT 7.3 10^3/ul (4.8-10.8)
[2017-04-02 06:53] LABS: CALCIUM 9.1 mg/dl (8.4-10.2); CREATININE 0.98 mg/dl (0.61-1.24); POTASSIUM 4.1 mmol/L (3.5-5.1)
[2017-04-02 07:17] VITALS: BP 107/64; RESP 20
--- NOTE | 2017-04-02 09:16 | CONS ---
Date/Time of Note Date/Time of Note DATE: 04/02/17 TIME: 09:15 Assessment/Plan Assessment/Plan Chief Complaint/Hosp Course - early sepsis d/t left buttock abscess - leukocytosis and tachycardia resolved- -- Recent cx from [facility] was verified as ESBL -BLOOD CULTURE Preliminary -NO GROWTH AFTER 3 DAYS - left buttock abscess s/p I&D 03/27/17 at [facility]. 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 CT on 01/10/2017 showed much improvement - h/o perineal abscess s/p I&D in 07/2016. Cx grew bacteroides, gamma hemolytic strep and ESBL+E. coli. CoNS likely a colonizer - scrotal pain, likely referred pain. No e/o scrotal abscess on the physical exam - h/o diverticulosis recommendations -Ertapenem 1 g iv daily x 10 days upon d/c - probiotics Problems: Consultation Date/Type/Reason Admit Date/Time Mar 27, 2017 at 22:41 Initial Consult Date 03/29/17 Referring Provider: ARELIS SAWYER MD Exam/Review of Systems Vital Signs Vitals Vital Signs Date Time Temp Pulse Resp B/P Pulse Ox O2 Delivery O2 Flow Rate FiO2 04/02/17 07:17 98.9 67 20 107/64 99 03/31/17 02:00 Room Air Intake and Output 04/01/17 04/01/17 04/02/17 14:59 22:59 06:59 Intake Total 600 ml 2070 ml 2800 ml Balance 600 ml 2070 ml 2800 ml Results Result Diagram: 04/02/17 0535 04/02/17 0535 Results 24 hrs Laboratory Tests Test 04/02/17 05:35 White Blood Count 7.3 Red Blood Count 5.29 Hemoglobin 14.4 Hematocrit 43.9 Mean Corpuscular Volume 83.0 Mean Corpuscular Hemoglobin 27.2 L Mean Corpuscular Hemoglobin Concent 32.8 Red Cell Distribution Width 13.3 Platelet Count 300 # Mean Platelet Volume 11.0 H Neutrophils % 45.0 Lymphocytes % 45.3 Monocytes % 6.7 Eosinophils % 1.8 Basophils % 0.8 Nucleated Red Blood Cells % 0.0 Neutrophils # 3.3 Lymphocytes # 3.3 H Monocytes # 0.5 Eosinophils # 0.1 Basophils # 0.1 Nucleated Red Blood Cells # 0.0 Sodium Level 142 Potassium Level 4.1 Chloride Level 104 Carbon Dioxide Level 27 Anion Gap 15 Blood Urea Nitrogen 9 Creatinine 0.98 Glucose Level 96 Calcium Level 9.1 Medications Medications Current Medications Potassium Chloride/Sodium Chloride (NS-KCl 20 Meq) 1,000 ml @ 100 mls/hr Q10H IV Last administered on 04/01/17 23:56; Admin Dose 100 MLS/HR; Start at 12:08 Ondansetron HCl (Zofran Inj) 4 mg Q6H PRN IV NAUSEA AND/OR VOMITING; Start at 12:30 Acetaminophen (Tylenol Tab) 650 mg Q6H PRN PO PAIN LEVEL 1-3 OR FEVER Last administered on 04/01/17 17:33; Admin Dose 650 MG; Start 03/28/17 at 12:30 Morphine Sulfate (morphine) 2 mg Q4H PRN IV SEVERE PAIN LEVEL 7-10 Last administered on 04/01/17 14:57; Admin Dose 2 MG; Start 03/28/17 at 12:30 Docusate Sodium (Colace) 100 mg Q12H PRN PO CONSTIPATION; Start 03/28/17 at 12 :30 Famotidine (Pepcid) 20 mg Q12 PO Last administered on 04/01/17 21:21; Admin Dose 20 MG; Start 03/28/17 at 21:00 Enoxaparin Sodium 30 mg 30 mg DAILY SC Last administered on 04/01/17 08:59; Admin Dose 30 MG; Start 03/29/17 at 09:00 Meropenem/Sodium Chloride (Merrem 1 Gm/50 ml (Pmx)) 50 ml @ 100 mls/hr Q8 IVPB Last administered on 04/02/17 05:18; Admin Dose 100 MLS/HR; Start 03/29/17 at 14:00 JORDAN MALDONADO MD Apr 02, 2017 09:16
[2017-04-02] MEDS: FAMOTIDINE 20 MG TAB PO SCH ×2 (09:59→22:14)
[2017-04-02] MEDS: ENOXAPARIN 30 MG/0.3 ML SYG SC SCH (10:10)
[2017-04-02 13:36] VITALS: BP 129/89; RESP 20
--- NOTE | 2017-04-02 14:19 | PN ---
Date/Time of Note Date/Time of Note DATE: 04/02/17 TIME: 14:17 Assessment/Plan VTE Prophylaxis VTE Prophylaxis Intervention: SCD's Lines/Catheters IV Catheter Type (from [facility]): Peripheral IV Urinary Cath still in place: No Assessment/Plan Chief Complaint/Hosp Course Pain is well controlled patient remains afebrile, initiate insertion of PICC line for IV antibiotics. Assessment/Plan -Left perirectal abscess, status post drain drainage on 03/27. Dr. Castano is following in a general surgery consultation. Continue current wound care. -Sepsis, continue broad-spectrum antibiotics, obtain culture results of drainage , Dr. Calles is following in infection disease consultation -Hypertension, patient is currently normotensive. Further recommendations based on clinical course. Plan of care is discussed with Dr. Rooney. Problems: Exam/Review of Systems Vital Signs Vitals Vital Signs Date Time Temp Pulse Resp B/P Pulse Ox O2 Delivery O2 Flow Rate FiO2 04/02/17 13:36 97.5 80 20 129/89 98 03/31/17 02:00 Room Air Intake and Output 04/01/17 04/01/17 04/02/17 15:00 23:00 07:00 Intake Total 600 ml 2070 ml 2800 ml Balance 600 ml 2070 ml 2800 ml Exam Constitutional: alert, oriented Respiratory: normal air movement Cardiovascular: nl pulses Gastrointestinal: non-tender, soft Extremities: normal pulses Neurological: nl mental status Skin: other (Left perirectal abscess with drainage) Results Result Diagram: 04/02/17 0535 04/02/17 0535 Results 24 hrs Laboratory Tests Test 04/02/17 05:35 White Blood Count 7.3 Red Blood Count 5.29 Hemoglobin 14.4 Hematocrit 43.9 Mean Corpuscular Volume 83.0 Mean Corpuscular Hemoglobin 27.2 L Mean Corpuscular Hemoglobin Concent 32.8 Red Cell Distribution Width 13.3 Platelet Count 300 # Mean Platelet Volume 11.0 H Neutrophils % 45.0 Lymphocytes % 45.3 Monocytes % 6.7 Eosinophils % 1.8 Basophils % 0.8 Nucleated Red Blood Cells % 0.0 Neutrophils # 3.3 Lymphocytes # 3.3 H Monocytes # 0.5 Eosinophils # 0.1 Basophils # 0.1 Nucleated Red Blood Cells # 0.0 Sodium Level 142 Potassium Level 4.1 Chloride Level 104 Carbon Dioxide Level 27 Anion Gap 15 Blood Urea Nitrogen 9 Creatinine 0.98 Glucose Level 96 Calcium Level 9.1 Medications Medications Current Medications Potassium Chloride/Sodium Chloride (NS-KCl 20 Meq) 1,000 ml @ 100 mls/hr Q10H IV Last administered on 04/02/17 12:33; Admin Dose 100 MLS/HR; Start at 12:08 Ondansetron HCl (Zofran Inj) 4 mg Q6H PRN IV NAUSEA AND/OR VOMITING; Start at 12:30 Acetaminophen (Tylenol Tab) 650 mg Q6H PRN PO PAIN LEVEL 1-3 OR FEVER Last administered on 04/01/17 17:33; Admin Dose 650 MG; Start 03/28/17 at 12:30 Morphine Sulfate (morphine) 2 mg Q4H PRN IV SEVERE PAIN LEVEL 7-10 Last administered on 04/01/17 14:57; Admin Dose 2 MG; Start 03/28/17 at 12:30 Docusate Sodium (Colace) 100 mg Q12H PRN PO CONSTIPATION; Start 03/28/17 at 12 :30 Famotidine (Pepcid) 20 mg Q12 PO Last administered on 04/02/17 09:59; Admin Dose 20 MG; Start 03/28/17 at 21:00 Enoxaparin Sodium 30 mg 30 mg DAILY SC Last administered on 04/02/17 10:10; Admin Dose 30 MG; Start 03/29/17 at 09:00 Meropenem/Sodium Chloride (Merrem 1 Gm/50 ml (Pmx)) 50 ml @ 100 mls/hr Q8 IVPB Last administered on 04/02/17 13:29; Admin Dose 100 MLS/HR; Start 03/29/17 at 14:00 FERNY THOMPSON Apr 02, 2017 14:19
[2017-04-02] MEDS: morphine 2 MG INJ IV PRN ×2 (16:28→22:21)
[2017-04-02 20:00] VITALS: BP 111/74; RESP 20
[2017-04-03 02:00] VITALS: BP 122/84; RESP 20
[2017-04-03] MEDS: MEROPENEM 1 GM/50ML(PMX) 50 ML IVPB SCH ×3 (05:52→21:44)
[2017-04-03 06:38] LABS: BASOPHIL # 0.1 10^3/ul (0.0-0.1); BASOPHILS % 0.7 % (0.0-2.0); EOSINOPHILS # 0.1 10^3/ul (0.0-0.5); EOSINOPHILS % 1.4 % (0.0-7.0); HEMATOCRIT 42.9 % (42.0-52.0); HEMOGLOBIN 13.9 g/dl (14.0-18.0); MEAN CORPUSCULAR HEMOGLOBIN 26.6 pg (29.0-33.0); MEAN CORPUSCULAR HGB CONC 32.4 g/dl (32.0-37.0); MEAN CORPUSCULAR VOLUME 82.2 fl (82.0-101.0); MEAN PLATELET VOLUME 10.6 fl (7.4-10.4); MONOCYTE # 0.6 10^3/ul (0.3-0.9); MONOCYTES % 6.3 % (0.0-11.0); NEUTROPHIL # 3.9 10^3/ul (1.6-7.5); NEUTROPHILS % 45.1 % (39.0-77.0); PLATELET COUNT 294 10^3/UL (140-415); RED BLOOD COUNT 5.22 10^6/ul (4.70-6.10); RED CELL DISTRIBUTION WIDTH 13.2 % (11.5-14.5); WHITE BLOOD COUNT 8.7 10^3/ul (4.8-10.8)
[2017-04-03 07:05] LABS: CALCIUM 8.9 mg/dl (8.4-10.2); CREATININE 1.03 mg/dl (0.61-1.24); POTASSIUM 4.2 mmol/L (3.5-5.1)
[2017-04-03 07:12] VITALS: BP 110/77; RESP 20
[2017-04-03] MEDS: FAMOTIDINE 20 MG TAB PO SCH ×2 (09:04→21:42)
[2017-04-03] MEDS: ENOXAPARIN 30 MG/0.3 ML SYG SC SCH (09:06)
[2017-04-03] MEDS: NS + KCL 20 MEQ 1,000 ML IV SCH ×2 (11:33→18:00)
[2017-04-03 13:21] VITALS: BP 109/75; RESP 20
--- NOTE | 2017-04-03 16:06 | PN ---
Date/Time of Note Date/Time of Note DATE: 04/03/17 TIME: 16:05 Assessment/Plan VTE Prophylaxis VTE Prophylaxis Intervention: SCD's Lines/Catheters IV C[facility]ter Type (from [facility]): Peripheral IV Urinary Cath still in place: No Assessment/Plan Chief Complaint/Hosp Course Patient is status post left upper extremity PICC line insertion, pending arrangement for antibiotics by home health Assessment/Plan -Left perirectal abscess, status post drain drainage on 03/27. Dr. Castano is following in a general surgery consultation. Continue current wound care. -Sepsis, continue broad-spectrum antibiotics, obtain culture results of drainage , Dr. Calles is following in infection disease consultation -Hypertension, patient is currently normotensive. Further recommendations based on clinical course. Plan of care is discussed with Dr. Rooney. Problems: Exam/Review of Systems Vital Signs Vitals Vital Signs Date Time Temp Pulse Resp B/P Pulse Ox O2 Delivery O2 Flow Rate FiO2 04/03/17 13:21 98.2 76 20 109/75 98 03/31/17 02:00 Room Air Intake and Output 04/02/17 04/02/17 04/03/17 15:00 23:00 07:00 Intake Total 50 ml 2270 ml 1175 ml Balance 50 ml 2270 ml 1175 ml Exam Constitutional: alert, oriented Respiratory: normal air movement Cardiovascular: nl pulses Gastrointestinal: non-tender, soft Extremities: normal pulses Neurological: nl mental status Skin: other (Left perirectal abscess with drainage) Results Result Diagram: 04/03/17 0602 04/03/17 0602 Results 24 hrs Laboratory Tests Test 04/03/17 06:02 White Blood Count 8.7 Red Blood Count 5.22 Hemoglobin 13.9 L Hematocrit 42.9 Mean Corpuscular Volume 82.2 Mean Corpuscular Hemoglobin 26.6 L Mean Corpuscular Hemoglobin Concent 32.4 Red Cell Distribution Width 13.2 Platelet Count 294 Mean Platelet Volume 10.6 H Neutrophils % 45.1 Lymphocytes % 46.0 Monocytes % 6.3 Eosinophils % 1.4 Basophils % 0.7 Nucleated Red Blood Cells % 0.0 Neutrophils # 3.9 Lymphocytes # 4.0 H Monocytes # 0.6 Eosinophils # 0.1 Basophils # 0.1 Nucleated Red Blood Cells # 0.0 Sodium Level 143 Potassium Level 4.2 Chloride Level 106 Carbon Dioxide Level 26 Anion Gap 15 Blood Urea Nitrogen 12 Creatinine 1.03 Glucose Level 98 Calcium Level 8.9 Medications Medications Current Medications Potassium Chloride/Sodium Chloride (NS-KCl 20 Meq) 1,000 ml @ 100 mls/hr Q10H IV Last administered on 04/03/17 11:33; Admin Dose 100 MLS/HR; Start at 12:08 Ondansetron HCl (Zofran Inj) 4 mg Q6H PRN IV NAUSEA AND/OR VOMITING; Start at 12:30 Acetaminophen (Tylenol Tab) 650 mg Q6H PRN PO PAIN LEVEL 1-3 OR FEVER Last administered on 04/01/17 17:33; Admin Dose 650 MG; Start 03/28/17 at 12:30 Morphine Sulfate (morphine) 2 mg Q4H PRN IV SEVERE PAIN LEVEL 7-10 Last administered on 04/02/17 22:21; Admin Dose 2 MG; Start 03/28/17 at 12:30 Docusate Sodium (Colace) 100 mg Q12H PRN PO CONSTIPATION; Start 03/28/17 at 12 :30 Famotidine (Pepcid) 20 mg Q12 PO Last administered on 04/03/17 09:04; Admin Dose 20 MG; Start 03/28/17 at 21:00 Enoxaparin Sodium 30 mg 30 mg DAILY SC Last administered on 04/03/17 09:06; Admin Dose 30 MG; Start 03/29/17 at 09:00 Meropenem/Sodium Chloride (Merrem 1 Gm/50 ml (Pmx)) 50 ml @ 100 mls/hr Q8 IVPB Last administered on 04/03/17 12:59; Admin Dose 100 MLS/HR; Start 03/29/17 at 14:00 FERNY THOMPSON Apr 03, 2017 16:06
--- NOTE | 2017-04-03 19:28 | CONS ---
Date/Time of Note Date/Time of Note DATE: 04/03/17 TIME: 19:21 Assessment/Plan Assessment/Plan Chief Complaint/Hosp Course - early sepsis d/t left buttock abscess - leukocytosis and tachycardia resolved - left buttock abscess s/p I&D 03/27/17 at [facility]. Cx + ESLB E. 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 CT on 01/10/2017 showed much improvement - h/o perineal abscess s/p I&D in 07/2016. Cx grew bacteroides, gamma hemolytic strep and ESBL+E. coli. CoNS likely a colonizer - scrotal pain, likely referred pain. No e/o scrotal abscess on the physical exam - h/o diverticulosis recommendations: - change meropenem (03/29/2017-) to Ertapenem 1 g IV daily to complete a total 14 day course of IV abx. Suggested end date 04/13/2017. - contact isolation for ESBL - probiotics - okay to DC home from ID standpoint once Home Health for IV abx has been arranged Management d/w patient, JAZMÍN Bennett, and Dr. Calles Problems: Consultation Date/Type/Reason Admit Date/Time Mar 27, 2017 at 22:41 Initial Consult Date 03/29/17 Type of Consultation: Infectious Disease Referring Provider: ARELIS SAWYER MD 24 HR Interval Summary Free Text/Dictation DC planning in progress; CM trying to arrange Home Health and get insurance authorization for IV abx per d/w nursing. No acute issues. Wound is healing and no longer requiring packing. Pt states pain is tolerable. Denies SOB, abd pain, n/v/d, dysuria. Exam/Review of Systems Vital Signs Vitals Vital Signs Date Time Temp Pulse Resp B/P Pulse Ox O2 Delivery O2 Flow Rate FiO2 04/03/17 13:21 98.2 76 20 109/75 98 03/31/17 02:00 Room Air Intake and Output 04/02/17 04/02/17 04/03/17 15:00 23:00 07:00 Intake Total 50 ml 2270 ml 1175 ml Balance 50 ml 2270 ml 1175 ml Exam Constitutional: alert, oriented, well developed Psych: nl mood/affect Head: atraumatic, normocephalic Eyes: nl conjunctiva, nl sclera ENMT: nl external ears & nose Neck: supple Respiratory: clear to auscultation, normal air movement Cardiovascular: nl pulses, regular rate and rhythm Gastrointestinal: non-tender, soft, No distended Musculoskeletal: nl extremities to inspection Extremities: normal pulses Neurological: nl mental status, nl speech Skin: nl turgor, other (Left gluteal area with dressing c/d/i - see nurse's note and photos in chart for details) Results Result Diagram: 04/03/17 0602 04/03/17 0602 Results 24 hrs Laboratory Tests Test 04/03/17 06:02 White Blood Count 8.7 Red Blood Count 5.22 Hemoglobin 13.9 L Hematocrit 42.9 Mean Corpuscular Volume 82.2 Mean Corpuscular Hemoglobin 26.6 L Mean Corpuscular Hemoglobin Concent 32.4 Red Cell Distribution Width 13.2 Platelet Count 294 Mean Platelet Volume 10.6 H Neutrophils % 45.1 Lymphocytes % 46.0 Monocytes % 6.3 Eosinophils % 1.4 Basophils % 0.7 Nucleated Red Blood Cells % 0.0 Neutrophils # 3.9 Lymphocytes # 4.0 H Monocytes # 0.6 Eosinophils # 0.1 Basophils # 0.1 Nucleated Red Blood Cells # 0.0 Sodium Level 143 Potassium Level 4.2 Chloride Level 106 Carbon Dioxide Level 26 Anion Gap 15 Blood Urea Nitrogen 12 Creatinine 1.03 Glucose Level 98 Calcium Level 8.9 Medications Medications Current Medications Potassium Chloride/Sodium Chloride (NS-KCl 20 Meq) 1,000 ml @ 100 mls/hr Q10H IV Last administered on 04/03/17 11:33; Admin Dose 100 MLS/HR; Start at 12:08 Ondansetron HCl (Zofran Inj) 4 mg Q6H PRN IV NAUSEA AND/OR VOMITING; Start at 12:30 Acetaminophen (Tylenol Tab) 650 mg Q6H PRN PO PAIN LEVEL 1-3 OR FEVER Last administered on 04/01/17 17:33; Admin Dose 650 MG; Start 03/28/17 at 12:30 Morphine Sulfate (morphine) 2 mg Q4H PRN IV SEVERE PAIN LEVEL 7-10 Last administered on 04/02/17 22:21; Admin Dose 2 MG; Start 03/28/17 at 12:30 Docusate Sodium (Colace) 100 mg Q12H PRN PO CONSTIPATION; Start 03/28/17 at 12 :30 Famotidine (Pepcid) 20 mg Q12 PO Last administered on 04/03/17 09:04; Admin Dose 20 MG; Start 03/28/17 at 21:00 Enoxaparin Sodium 30 mg 30 mg DAILY SC Last administered on 04/03/17 09:06; Admin Dose 30 MG; Start 03/29/17 at 09:00 Meropenem/Sodium Chloride (Merrem 1 Gm/50 ml (Pmx)) 50 ml @ 100 mls/hr Q8 IVPB Last administered on 04/03/17 12:59; Admin Dose 100 MLS/HR; Start 03/29/17 at 14:00 REJI HUMPHRIES NP Apr 03, 2017 19:28
[2017-04-03 20:14] VITALS: BP 121/83; RESP 18
[2017-04-04 02:12] VITALS: BP 109/68; RESP 18
[2017-04-04] MEDS: NS + KCL 20 MEQ 1,000 ML IV SCH ×3 (03:29→14:42)
[2017-04-04 06:39] LABS: BASOPHIL # 0.1 10^3/ul (0.0-0.1); BASOPHILS % 0.8 % (0.0-2.0); EOSINOPHILS # 0.1 10^3/ul (0.0-0.5); EOSINOPHILS % 1.6 % (0.0-7.0); HEMATOCRIT 43.3 % (42.0-52.0); HEMOGLOBIN 13.9 g/dl (14.0-18.0); LYMPHOCYTES # 3.5 10^3/ul (0.8-2.9); LYMPHOCYTES % 41.6 % (15.0-51.0); MEAN CORPUSCULAR HEMOGLOBIN 26.2 pg (29.0-33.0); MEAN CORPUSCULAR HGB CONC 32.1 g/dl (32.0-37.0); MEAN CORPUSCULAR VOLUME 81.7 fl (82.0-101.0); MEAN PLATELET VOLUME 11.2 fl (7.4-10.4); MONOCYTE # 0.5 10^3/ul (0.3-0.9); MONOCYTES % 6.4 % (0.0-11.0); NEUTROPHIL # 4.1 10^3/ul (1.6-7.5); NEUTROPHILS % 49.2 % (39.0-77.0); PLATELET COUNT 310 10^3/UL (140-415); RED CELL DISTRIBUTION WIDTH 13.1 % (11.5-14.5); WHITE BLOOD COUNT 8.3 10^3/ul (4.8-10.8)
[2017-04-04 07:26] LABS: CALCIUM 9.1 mg/dl (8.4-10.2); CREATININE 0.95 mg/dl (0.61-1.24)
[2017-04-04 07:41] VITALS: BP 106/65; RESP 16
[2017-04-04] MEDS ORDERED: ERTAPENEM SODIUM 1 GM in SOD CHLORIDE 0.9% 100 ML IVPB SCH (09:00)
[2017-04-04] MEDS: FAMOTIDINE 20 MG TAB PO SCH (09:09)
[2017-04-04] MEDS: ENOXAPARIN 30 MG/0.3 ML SYG SC SCH (09:18)
[2017-04-04 15:07] VITALS: BP 119/88; RESP 16
--- NOTE | 2017-04-04 17:42 | DS ---
Date/Time of Note Date/Time of Note DATE: 04/04/17 TIME: 17:41 Discharge Summary Admission/Discharge Info Admit Date/Time Mar 27, 2017 at 22:41 Discharge Date/Time Patient Condition: Stable Hx of Present Illness The patient is a 42-year-old male known to me from previous admission. Patient has a recurrent perirectal abscess, status post multiple drainage, completed treatment with antibiotics in January of this year. Patient was seen by Dr. Castano an outpatient in surgical consultation. Patient underwent colonoscopy with biopsy by Dr. Muse at [facility] on Sunday, 2 days ago. The patient did develop a fever and chills yesterday. He presented to [facility] emergency room patient where he underwent drainage of abscess. Patient noted to have elevated lactate on presentation. Patient was started on broad-spectrum antibiotics and was transferred to the [facility] further care and management. Patient denies any shortness of breath denies any chest pain patient denies any nausea vomiting diarrhea. Hospital Course -Left perirectal abscess, status post drain drainage on 03/27. Dr. Castano is following in a general surgery consultation. Continue current wound care. -Sepsis, continue broad-spectrum antibiotics, Dr. Calles is following in infection disease consultation. D/aryan on Ertapenem 1q IV until 04/13 by home health, f/up with Dr Castano in 2 weeks. -Hypertension, patient is currently normotensive. Home Meds Active Scripts Metronidazole* (Flagyl*) 500 Mg Tablet, 500 MG PO TID for 3 Days, #3 TAB Per pharmacy Prov:FRITZ FUENTES 01/11/17 Hydrocodone/Acetaminophen ([place] 5-325 Tablet) 1 Each Tablet, 1 EACH PO Q6, #20 TAB Prov:FRITZ FUENTES 01/11/17 Hydrocodone Bit-Acetaminophen (Hydrocodone Bit-APAP) 5-325MG Tablet, 1 TAB PO Q6H Y for Mild-Moderate Pain, #30 TAB Prov:FERNY THOMPSON 07/11/16 Follow-up Plan d/c on Ertapenem 1q IV until 04/13 by home health, wound care by home health, f/ up with Dr Castano in 2 weeks. Primary Care Provider Lars Wilson MD Pending Labs Laboratory Tests Test 04/04/17 05:43 White Blood Count 8.310^3/ul (4.8-10.8) Red Blood Count 5.3010^6/ul (4.70-6.10) Hemoglobin 13.9g/dl (14.0-18.0) Hematocrit 43.3% (42.0-52.0) Mean Corpuscular Volume 81.7fl (82.0-101.0) Mean Corpuscular Hemoglobin 26.2pg (29.0-33.0) Mean Corpuscular Hemoglobin Concent 32.1g/dl (32.0-37.0) Red Cell Distribution Width 13.1% (11.5-14.5) Platelet Count 06811^3/UL (140-415) Mean Platelet Volume 11.2fl (7.4-10.4) Neutrophils % 49.2% (39.0-77.0) Lymphocytes % 41.6% (15.0-51.0) Monocytes % 6.4% (0.0-11.0) Eosinophils % 1.6% (0.0-7.0) Basophils % 0.8% (0.0-2.0) Nucleated Red Blood Cells % 0.0/100WBC (0.0-0.0) Neutrophils # 4.110^3/ul (1.6-7.5) Lymphocytes # 3.510^3/ul (0.8-2.9) Monocytes # 0.510^3/ul (0.3-0.9) Eosinophils # 0.110^3/ul (0.0-0.5) Basophils # 0.110^3/ul (0.0-0.1) Nucleated Red Blood Cells # 0.010^3/ul (0.0-0.0) Sodium Level 143mmol/L (135-144) Potassium Level 4.0mmol/L (3.5-5.1) Chloride Level 105mmol/L (97-110) Carbon Dioxide Level 26mmol/L (21-31) Anion Gap 16 (8-16) Blood Urea Nitrogen 10mg/dl (7-20) Creatinine 0.95mg/dl (0.61-1.24) Glucose Level 96mg/dl (70-220) Calcium Level 9.1mg/dl (8.4-10.2) FERNY THOMPSON Apr 04, 2017 17:42
== END 2017-04-04 18:35 | disposition home health service (06) | DRG 872 ==
LOC: MS2 22:41
PROVIDERS: ADMIT Internal Medicine; ATTEND Internal Medicine
DX: A41.9 Sepsis, unspecified organism (principal); I10 Essential (primary) hypertension; K61.1 Rectal abscess; Z72.0 Tobacco use
CPT/HCPCS: 80048; 80053; 80202; 85025; 87040; 90686; J1335; J1650; J2185; J2270; J3370; J3480; J7050

== ENCOUNTER 2017-04-16 10:42 | Day surgery (SDC) | payer BC ==
[2017-04-16] VITALS (10 sets, daily range): BP systolic 119–158; BP diastolic 81–109; PULSE 72–98; RESP 11–18; Ht 177.8 cm; Wt 94.1 kg
[~2017-04-16] VITALS: Ht 177.8 cm; Wt 94.1 kg
[~2017-04-16 10:42] MED LIST changes: -HYDR-906 PO; -METR500T PO
[2017-04-16] MEDS ORDERED: CEFAZOLIN 2 GM/50 ML (PMX) 50 ML IVPB ONE (12:30)
[2017-04-16] MEDS ORDERED: SOD CHLORIDE 0.9% 1,000 ML IV SCH (12:30)
[2017-04-16 13:01] LABS: BASOPHIL # 0.1 10^3/ul (0.0-0.1); BASOPHILS % 0.8 % (0.0-2.0); EOSINOPHILS # 0.1 10^3/ul (0.0-0.5); EOSINOPHILS % 1.3 % (0.0-7.0); HEMATOCRIT 44.7 % (42.0-52.0); HEMOGLOBIN 14.8 g/dl (14.0-18.0); LYMPHOCYTES # 2.5 10^3/ul (0.8-2.9); LYMPHOCYTES % 32.5 % (15.0-51.0); MEAN CORPUSCULAR HEMOGLOBIN 26.8 pg (29.0-33.0); MEAN CORPUSCULAR HGB CONC 33.1 g/dl (32.0-37.0); MEAN CORPUSCULAR VOLUME 80.8 fl (82.0-101.0); MEAN PLATELET VOLUME 11.9 fl (7.4-10.4); MONOCYTE # 0.5 10^3/ul (0.3-0.9); MONOCYTES % 6.4 % (0.0-11.0); NEUTROPHIL # 4.6 10^3/ul (1.6-7.5); NEUTROPHILS % 58.9 % (39.0-77.0); PLATELET COUNT 250 10^3/UL (140-415); RED BLOOD COUNT 5.53 10^6/ul (4.70-6.10); RED CELL DISTRIBUTION WIDTH 13.2 % (11.5-14.5); WHITE BLOOD COUNT 7.8 10^3/ul (4.8-10.8)
[2017-04-16 13:21] LABS: INR 0.93; PROTIME 12.6 Sec (11.9-14.9)
[2017-04-16 13:22] LABS: PARTIAL THROMBOPLASTIN TIME 28.2 Sec (25.0-35.0)
[2017-04-16 13:26] LABS: ALBUMIN 4.1 g/dl (3.3-4.9); ALBUMIN/GLOBULIN RATIO 1.17; BILIRUBIN,INDIRECT 0.8 mg/dl (0-1.1); BILIRUBIN,TOTAL 0.8 mg/dl (0.2-1.3); TOTAL PROTEIN 7.6 g/dl (6.1-8.1)
[2017-04-16 13:28] LABS: CALCIUM 9.5 mg/dl (8.4-10.2); CREATININE 0.99 mg/dl (0.61-1.24)
[2017-04-16] MEDS ORDERED: MIDAZOLAM 1 MG/ML 2 ML INJ ONE (13:44)
[2017-04-16] MEDS ORDERED: FENTAnyl 50 MCG/ML VIAL ONE (13:44)
[2017-04-16] MEDS ORDERED: BUPIVACAINE 0.25% (MPF) 30 ML INJ ONE (14:19)
[2017-04-16] MEDS ORDERED: PROPOFOL 20 ML ONE (14:28)
[2017-04-16] MEDS ORDERED: LIDOCAINE 2% (SDV) 5 ML INJ ONE (14:28)
[2017-04-16] MEDS ORDERED: GLYCOPYRROLATE 0.4 MG INJ ONE (14:28)
--- NOTE | 2017-04-16 14:28 | OPR ---
Date/Time of Note Date/Time of Note DATE: 04/16/17 TIME: 14:25 Operative Report Procedure Date: Apr 16, 2017 Preoperative Diagnosis left perianal fistula Postoperative Diagnosis same Operation/Procedure Performed 1. left perianal fistulectomy and fistulotomy 2. rigid proctoscopy 3. 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 His course was complicated by recent hospital admission with sepsis and infection. He presents here for surgical management. Risks alternatives benefits and percent were discussed the patient. Patient's best understanding consents to the operation. Procedure Description Patient taken to the OR and prepped and draped in usual sterile fashion. Surgical timeout was performed. IV antibiotics given. Rigid proctoscopy was performed. There is evidence of any masses or lesions. Prep was fair. Circular incision was made over the left perianal fistula. The surgical site is hemostatic. The fistulectomy was then performed. The fistula is then probed with the lacrimal duct probe and cauterized performed the fistulotomy. There is good hemostasis. Therapeutic subcutaneous local anesthesia was injected throughout the incision site. Dry dressings were applied. Roque JOHNSON Apr 16, 2017 14:28
[2017-04-16] MEDS ORDERED: ROCURONIUM 50 MG INJ ONE (14:29)
[2017-04-16] MEDS ORDERED: NEOSTIGMINE 3 MG/3 ML SYRINGE ONE (14:29)
[2017-04-16] MEDS ORDERED: HYDROCODONE/APAP (5/325) TAB PO ONE (14:30)
[2017-04-16] MEDS ORDERED: ONDANSETRON 4 MG INJ ONE (14:31)
[2017-04-16] MEDS ORDERED: CEFAZOLIN 1 GM INJ ONE (14:38)
[2017-04-16] MEDS ORDERED: ONDANSETRON 4 MG INJ IV PRN (15:00)
[2017-04-16] MEDS ORDERED: METOCLOPRAMIDE 10 MG INJ IV PRN (15:00)
[2017-04-16] MEDS ORDERED: FENTAnyl 50 MCG/ML VIAL IV PRN (15:00)
[2017-04-16] MEDS ORDERED: DIPHENHYDRAMINE 50 MG INJ IV PRN (15:00)
[2017-04-16] MEDS ORDERED: MEPERIDINE 25 MG INJ IV PRN (15:00)
[2017-04-16] MEDS ORDERED: HYDROmorphONE (0.2 MG/ML) 10ML SYG IV PRN ×2 (15:00)
== END 2017-04-16 16:46 | disposition home or self-care (01) ==
LOC: SDS 10:42
PROVIDERS: ATTEND Surgery
DX: K60.3 Anal fistula (principal); I10 Essential (primary) hypertension; E66.9 Obesity, unspecified; Z68.29 Body mass index [BMI] 29.0-29.9, adult
CPT/HCPCS: 46270; 80053; 85025; 85610; 85730; 88304; J0690; J2250; J2405; J2710; J3010; Z7512; Z7610